=== PATIENT | female | born 1955 | race Caucasian/White ===

== ENCOUNTER 2022-02-27 07:39 | Outpatient (CLI) | payer OTHER, SELFPAY ==
--- NOTE | 2022-02-27 07:50 | ECHO_ITS ---
Patient Info Name: Elyse Greer Age: 67 years : 1955 Gender: Female Ht: 64 in Wt: 135 lbs BSA: 1.67 m2 HR: 64 bpm BP: 168 / 75 mmHg Technical Quality: Good Exam Date: 02/27/2022 8:17 AM Exam Location: [facility] Patient Status: Outpatient Admit Date: 02/27/2022 Staff Ordering Physician: Tim Fishman DO Rubber Belt Splicer: Ray Villa RDCS, RT Attending Provider: Tim Fishman DO Referring Physician: Kye GUEVARA; Exam Type: CA echo doppler color flow Study Info Indications R06.00 - Dyspnea, unspecified Complete two-dimensional, color flow and Doppler transthoracic echocardiogram is performed. Strain analysis performed. Summary 1. Complete two-dimensional, color flow and Doppler transthoracic echocardiogram is performed. 2. Left ventricular chamber dimension is normal. 3. Left ventricular systolic function is normal, estimated at 60-65%. 4. The left ventricular diastolic function is normal. 5. E/e' 5 is not elevated. 6. Global longitudinal strain is normal at -18.4%. 7. Left atrial chamber dimension is mildly enlarged. 8. There is trace mitral valve regurgitation. 9. There is trace tricuspid valve regurgitation. 10. There is trace pulmonic regurgitation. Left Ventricle Global longitudinal strain is normal at -18.4%. E/e' 5 is not elevated. Left ventricular chamber dimension is normal. Left ventricular systolic function is normal, estimated at 60-65%. The left ventricular diastolic function is normal. Right Ventricle Right ventricular systolic function is normal and with normal TAPSE 2.3 cm. Right ventricular chamber dimension is normal. Left Atria Left atrial chamber dimension is mildly enlarged. Right Atria Right atrial chamber dimension is normal. Aortic Valve The aortic valve is trileaflet. There is no aortic valve stenosis. There is no aortic valve regurgitation. Pulmonic Valve There is trace pulmonic regurgitation. Mitral Valve There is no mitral valve stenosis. There is trace mitral valve regurgitation. Tricuspid Valve There is trace tricuspid valve regurgitation. RVSP is not calculated due to an inadequate TR jet. Pericardium/Pleural There is no pericardial effusion. Inferior Vena Cava Normal inferior vena cava with >50% collapse upon inspiration consistent with normal right atrial pressure, 5 mmHg. Aorta The aortic root size at the sinus of Valsalva is normal. Left Ventricular Outflow Tract Name Value Normal LVOT 2D LVOT Diameter 2.0 cm LVOT Doppler LVOT Peak Gradient 5 mmHg LVOT Mean Gradient 2 mmHg LVOT VTI 22 cm LVOT VTI/AV VTI Ratio 0.8 LVOT Stroke Volume 67 ml LVOT CO 3.0 l/min LVOT CI 1.8 l/min/m2 Mitral Valve Name Value Normal MV
== END 2022-02-27 07:40 | disposition home or self-care (01) ==
LOC: ANHCARD 07:41
PROVIDERS: Visit Provider Internal Medicine Cardiovascular Disease
DX: R06.00 Dyspnea, unspecified (principal)
CPT/HCPCS: 93306

== ENCOUNTER 2022-11-21 00:50 | Day surgery (SDC) | payer OTHER, SELFPAY ==
[2022-11-20 13:01] VITALS: BMI 25.0
[2022-11-21] VITALS (8 sets, daily range): BP systolic 103–129; BP diastolic 48–88; PULSE 43–97; RESP 13–18; TEMP 36.3; O2SAT 98–100; BMI 25.0
--- NOTE | 2022-11-21 | ECHO_ITS ---
Patient Info Name: Elyse Greer Age: 67 years : 1955 Gender: Female Ht: 64 in Wt: 145 lbs BSA: 1.73 m2 HR: 102 bpm Exam Date: 11/21/2022 10:30 AM Exam Location: [facility] Patient Status: Outpatient Admit Date: 11/21/2022 Staff Ordering Physician: Tim Fishman DO Primary Education Professor: Ray Villa, VIV, RT Attending Provider: Tim Fishman DO Referring Physician: Kye GUEVARA; Exam Type: CA echo transesophageal Study Info Indications I48.1 - Persistent atrial fibrillation Complete two-dimensional, color flow and Doppler transesophageal study is performed. Procedure Details Risks/benefits/alternative to KEILA discuss with patient and she is agreeable to procedure. Patient was monitored electrocardiographically, vitals. She was in atrial flutter at 95 bpm, BP 120/70 mmHg, pulse ox>95%. Patient given cetacaine spray to posterior oropharynx x1. Patient sedated as per anesthesiology service. KEILA probe advanced to oropharynx and advanced intto esophagus without incident. Agitated saline given x 1. Multiple images obtained at various levels of esophagus. KEILA withdrawn and no blood noted on KEILA tip. Patient tolerated procedure well with no complications. Summary 1. Transesophageal echocardiogram. 2. Left ventricular chamber dimension is mildly enlarged. 3. Left ventricular systolic function is moderately reduced with an ejection fraction of 40-45% by visual estimation. 4. The left ventricular diastolic function is indeterminate as it was not assessed.. 5. Left atrial chamber dimension is mildly enlarged. 6. Agitated saline injection opacified right side cardiac chambers with shunt to left side cardiac chambers suggestive of patent foramen ovale. 7. There is mild mitral valve regurgitation. 8. There is mild tricuspid valve regurgitation. Left Ventricle Left ventricular systolic function is moderately reduced with an ejection fraction of 40-45% by visual estimation. The left ventricular diastolic function is indeterminate as it was not assessed.. Transesophageal echocardiogram. Left ventricular chamber dimension is mildly enlarged. Right Ventricle Right ventricular chamber dimension is normal. Right ventricular systolic function is normal. Left Atria Left atrial chamber dimension is mildly enlarged. Right Atria Right atrial chamber dimension is normal. Atrial Septum Agitated saline injection opacified right side cardiac chambers with shunt to left side cardiac chambers suggestive of patent foramen ovale. Suspected patent foramen ovale visualized by 2D and agitated saline imaging. Atrial Appendage There is no mass visualized in the left atrial appendage. Aortic Valve The aortic valve is trileaflet. There is no aortic valve stenosis. There is no aortic valve regurgitation. Pulmonic Valve There is no pulmonic regurgitation. Mitral Valve There is no mitral valve stenosis. There is mild mitral valve regurgitation. Tricuspid Valve RVSP is not measured. There is mild tricuspid valve regurgitation. Pericardium/Pleural There is no pericardial effusion. Inferior Vena Cava Inferior vena cava is not well visualized. Aorta The aortic root size at the sinus of Valsalva is normal. Report Signatures
--- NOTE | 2022-11-21 08:16 | ECG_ITS ---
Measurements Intervals [place] Rate: 95 P: 263 TN: 284 QRS: -65 QRSD: 133 T: 110 QT: 449 QTc: 565 Interpretive Statements ATRIAL FLUTTER RIGHT BUNDLE BRANCH BLOCK LEFT ANTERIOR FASCICULAR BLOCK ABNORMAL ECG NO PREVIOUS ECG AVAILABLE FOR COMPARISON Electronically Signed On 11-21-2022 9:17:05 CDT by Tim Fishman D.O.
[2022-11-21 08:45] LABS: Anion Gap 5 mmol/L (8-16); Blood Urea Nitrogen 15 mg/dL (7-17); Calcium 9.1 mg/dL (8.4-10.2); Carbon Dioxide 31 mmol/L (22-30); Chloride 104 mmol/L (98-107); Estimated CRCL calculation 51 ml/min; Estimated Glomerular Filt Rate > 60; Glucose 103 mg/dL (65-110); Magnesium 1.9 mg/dL (1.6-2.3); Potassium 4.1 mmol/L (3.4-5.0); Sodium 140 mmol/L (137-145)
--- NOTE | 2022-11-21 08:55 | SUR.PREOP ---
PT. IS NOTED TO BE ON WARFARIN. NOTIFIED DR. WHITE OF SUCH. ORDER TO OBTAIN PT/INR PRE PROCEDURE RECEIVED.
--- NOTE | 2022-11-21 09:15 | ECG_ITS ---
Measurements Intervals [place] Rate: 50 P: 70 NH: 161 QRS: -51 QRSD: 112 T: 33 QT: 464 QTc: 426 Interpretive Statements SINUS BRADYCARDIA LEFT AXIS DEVIATION INTRAVENTRICULAR CONDUCTION DELAY DELAYED PRECORDIAL R/S TRANSITION BORDERLINE T WAVE ABNORMALITY- ANT/INF LEADS BORDERLINE ECG COMPARED TO ECG 11/21/2022 08:21:54 SINUS RHYTHM NOW PRESENT Electronically Signed On 11-21-2022 11:16:37 CDT by Tim Fishman D.O.
[2022-11-21 09:33] LABS: INR 2.6; Prothrombin Time 27.4 Seconds (11.1-14.7)
--- NOTE | 2022-11-21 10:19 | WPDANESEPPF ---
Anes - Initial Pre Proc Eval Procedure: Operation Date: 11/21/22 09:00 Proposed Procedures p Trans Esophageal Echo - Tmi Fishman DO s Direct Current Cardioversion - Tim Fishman DO Date/Time: 11/21/22 10:19 Surgeon: Tim Fishman DO Pre Op Diagnosis: A-Fib Patient Data Age: 67 Gender: F Height: 1.63 m Weight: 66 kg Last Vital Signs Temp 36.3 C L 11/21/22 08:34 Pulse 97 11/21/22 08:34 Resp 18 11/21/22 08:34 BP 129/88 11/21/22 08:34 Pulse Ox 98 11/21/22 08:34 O2 Del Method Room Air 11/21/22 08:34 Allergies Allergy/AdvReac Type Severity Reaction Status Date / Time No Known Allergies Allergy Verified 11/21/22 08:24 Home Medications Medication Instructions Recorded Confirmed Type acetaminophen 325 mg tablet (Pain 325 mg PO Q6H PRN Pain 01/09/22 11/20/22 History Relief (acetaminophen)) bupropion HCl 150 mg tablet,12 hr See Rx Instructions .Route .COMPLEX 01/09/22 11/21/22 History sustained-release cholecalciferol (vitamin D3) 125 125 mcg PO DAILY 01/09/22 11/21/22 History mcg (5,000 unit) capsule ferrous sulfate 325 mg (65 mg 325 mg PO BID 01/09/22 11/21/22 History iron) tablet melatonin 3 mg capsule 3 mg PO QHS PRN Insomnia 01/09/22 11/20/22 History olanzapine 15 mg tablet 15 mg PO DAILY 01/09/22 11/21/22 History pravastatin 10 mg tablet 10 mg PO DAILY 01/09/22 11/20/22 History vitamin B complex (B 1 tablet PO DAILY 01/09/22 11/21/22 History Complex-Vitamin B12 tablet) calcium carbonate 500 mg calcium 500 mg PO BID 01/24/22 11/21/22 History (1,250 mg) tablet (Oyster Shell Calcium) metformin 500 mg tablet 500 mg PO DAILY 01/24/22 11/20/22 History sertraline 100 mg tablet (Zoloft) 100 mg PO DAILY 01/24/22 11/21/22 History sertraline 50 mg tablet 50 mg PO DAILY 01/24/22 11/21/22 History warfarin 6 mg tablet 7.5 mg PO DAILY 04/25/22 11/20/22 History metoprolol tartrate 25 mg tablet 25 mg PO BID 07/25/22 11/21/22 History fluticasone propionate 50 2 spray intranasal DAILY 08/13/22 11/21/22 History mcg/actuation nasal spray,suspension flecainide 50 mg tablet See Rx Instructions .Route .COMPLEX 11/20/22 11/21/22 History Laboratory Tests 11/21/22 11/21/22 08:21 09:03 PT 27.4 Seconds H Seconds (11.1-14.7) INR 2.6 Sodium 140 mmol/L mmol/L (137-145) Potassium 4.1 mmol/L mmol/L (3.4-5.0) Chloride 104 mmol/L mmol/L (98-107) Carbon Dioxide 31 mmol/L H mmol/L (22-30) Anion Gap 5 mmol/L L mmol/L (8-16) BUN 15 mg/dL mg/dL (7-17) Creatinine 0.80 mg/dL mg/dL (0.7-1.0) Estim Creat Clear Calc 51 ml/min ml/min Estimated GFR > 60 (59 - ) Glucose 103 mg/dL mg/dL (65-110) Calcium 9.1 mg/dL mg/dL (8.4-10.2) Magnesium 1.9 mg/dL mg/dL (1.6-2.3) Patient hx anesthesia problems: none Family hx anesthesia problems: none Results Review: All pre-operative results and documents have been reviewed as part of the pre-operative evaluation. [facility] Past Medical History Medical History Bipolar disorder Chronic a-fib COVID-19 Diabetes type 2, controlled HDL deficiency HTN (hypertension) Insomnia Moderate depressive disorder Schizophrenia Social History Social History Smoking status: Current every day smoker Alcohol intake: never Substance use: never Substance use type: does not use Lack of Transportation: No Lack of Food: Never True Current Housing: I Have Housing Concerned About Future Housing: No Difficulty Paying Gas/Electric Bills: Decline to Answer Difficulty Paying for Meds: No Currently Unemployed: No Education: Bachelor's Degree Difficulty w/ Childcare or Family Care: No Living arrangements: assisted living Spiritual care concerns: No Anes - Eval Final PreProcedure Day of Procedure 11/21/
--- NOTE | 2022-11-25 08:10 | WPDCARDVER ---
Cardioversion Cardioversion Date of procedure: 11/21/22 Procedure: Direct current cardioversion Pre-op diagnosis: Symptomatic atrial flutter Indications: Symptomatic atrial flutter Description of procedure: Risks/benefits/alternative to DC cardioversion discuss with patient and she gave informed consent. Patient monitored electrocardiographically, and vitals and pulse ox. Her HR was 95 bpm in atrial flutter, BP 120/70 mmHg and pulse ox >95%. Patient had defibrillator pads placed in anterior and posterior chest. Had anesthetics as per anesthesiology service. KEILA performed which showed no left atrial or left atrial thrombus. Patient was successfully cardioverted with 100 J biphasic synchronized energy x1. Her HR was immediately 35 bpm in sinus rhythm with BP 85/50 mmHg. Atropine 0.5 mg IV x1 given. Her HR gradually went to 50 bpm and BP 95/60 mmHg. Patient tolerated well and no immediate complications noted. Sedation: As per anesthesia Conclusion: 1. Successful DC cardioversion from atrial flutter to sinus rhythm. 2. Stop Flecainide and Metoprolol given bradycardia. [facility] Billing for Cardioversion: Cardioversion
== END 2022-11-21 12:19 | disposition home or self-care (01) ==
PROVIDERS: Visit Provider Internal Medicine Cardiovascular Disease
PROC: (CPT 93312; principal; 2022-11-21 09:00)
PROC: 5A2204Z Restoration of Cardiac Rhythm, Single (ICD-10-PCS; 2022-11-21 09:00)
DX: I48.92 Unspecified atrial flutter (principal); I34.0 Nonrheumatic mitral (valve) insufficiency; I36.1 Nonrheumatic tricuspid (valve) insufficiency; I10 Essential (primary) hypertension; E11.9 Type 2 diabetes mellitus without complications; F31.9 Bipolar disorder, unspecified; F20.9 Schizophrenia, unspecified; Z79.84 Long term (current) use of oral hypoglycemic drugs; Z79.01 Long term (current) use of anticoagulants
CPT/HCPCS: 36415; 80048; 83735; 85610; 92960; 93312; 93320; 93325; J0461; J2250; J2704; J7040

== ENCOUNTER 2023-11-10 13:50 | Emergency (ER) | payer OTHER, SELFPAY ==
--- NOTE | ~2023-11-10 | XR_ITS ---
EXAM: XR shoulder LT min 2V DATE: 11/10/2023 17:43 HISTORY: fall WITH LEFT SHOULDER PAIN . COMPARISON: None available. FINDINGS: Decreased mineralization. No fracture or dislocation. No lytic or blastic lesion. Joint sp aces are maintained. No erosion or periosteal change. Soft tissues within normal limits. IMPRESSION: No acute osseous finding in the left shoulder. Reviewed, dictated and finalized at location K.
--- NOTE | ~2023-11-10 | CT_ITS ---
EXAMINATION: CT brain wo con DATE: 11/10/2023 17:21 INDICATION: Fall. TECHNIQUE: Computed tomography (CT) of the head was performed without intravenous contrast. The mA wa s adjusted according to patient size. Iterative reconstruction technique was employed. Exam dose: 60 5.33 mGy-cm total exam DLP. COMPARISON: None FINDINGS: Right vertebral artery and bilateral carotid siphon internal carotid artery calcifications. There is nonspecific diminished attenuation of the cerebral white matter, likely due to chronic small vessel ischemic changes. No intracranial mass lesion or hemorrhage or cerebrovascular accident, midline shift or mass effect i s detected. No subdural or epidural hematoma. No fracture or bone destruction of the cranial vault. The mastoid air cells and paranasal sinuses are normally developed and aerated. IMPRESSION: Cerebral atherosclerosis and chronic small vessel ischemic changes of the cerebral white matter No skull fracture or acute intracranial finding Reviewed, dictated and finalized at Location A. Reviewed, dictated and finalized at location B.
--- NOTE | 2023-11-10 16:54 | ED.FALL ---
HPI - Fall General Chief Complaint: Fall Stated Complaint: glf Time Seen by Provider: 11/10/23 15:09 History of Present Illness HPI Narrative: 68-year-old female presenting after a fall. Patient resides at assisted living. States that she got a new walker and today she tripped on it. Fell forward striking her head and her left shoulder. Denies loss of consciousness. States that she did have a headache which is improved. States that she continues to have pain in her left shoulder. Denies neck or back pain. No numbness or weakness. No further complaints. Related Data Home Medications Medication Instructions Recorded Confirmed acetaminophen 325 mg tablet (Pain 325 mg PO Q6H PRN Pain 01/09/22 01/01/23 Relief (acetaminophen)) bupropion HCl 150 mg tablet,12 hr See Rx Instructions .Route .COMPLEX 01/09/22 01/01/23 sustained-release cholecalciferol (vitamin D3) 125 125 mcg PO DAILY 01/09/22 01/01/23 mcg (5,000 unit) capsule ferrous sulfate 325 mg (65 mg 325 mg PO BID 01/09/22 01/01/23 iron) tablet melatonin 3 mg capsule 3 mg PO QHS PRN Insomnia 01/09/22 01/01/23 olanzapine 15 mg tablet 15 mg PO DAILY 01/09/22 01/01/23 pravastatin 10 mg tablet 10 mg PO DAILY 01/09/22 01/01/23 vitamin B complex (B 1 tablet PO DAILY 01/09/22 01/01/23 Complex-Vitamin B12 tablet) calcium carbonate 500 mg calcium 500 mg PO BID 01/24/22 01/01/23 (1,250 mg) tablet (Oyster Shell Calcium) metformin 500 mg tablet 500 mg PO DAILY 01/24/22 01/01/23 sertraline 100 mg tablet (Zoloft) 100 mg PO DAILY 01/24/22 01/01/23 sertraline 50 mg tablet 50 mg PO DAILY 01/24/22 01/01/23 warfarin 6 mg tablet 7.5 mg PO DAILY 04/25/22 01/01/23 fluticasone propionate 50 2 spray intranasal DAILY 08/13/22 01/01/23 mcg/actuation nasal spray,suspension metoprolol tartrate 75 mg tablet 75 mg PO BID 01/01/23 01/01/23 Allergies Allergy/AdvReac Type Severity Reaction Status Date / Time No Known Allergies Allergy Verified 01/01/23 08:18 Review of Systems Review of Systems: All systems reviewed & are unremarkable except as noted in HPI and below PMFSH Past Medical History Medical History Bipolar disorder Chronic a-fib COVID-19 Diabetes type 2, controlled HDL deficiency HTN (hypertension) Insomnia Moderate depressive disorder Schizophrenia Social History Social History Smoking status: Current every day smoker Alcohol intake: never Substance use: never Substance use type: does not use Lack of Transportation: No Lack of Food: Never True Current Housing: I Have Housing Concerned About Future Housing: No Difficulty Paying Gas/Electric Bills: Decline to Answer Difficulty Paying for Meds: No Currently Unemployed: No Education: Bachelor's Degree Difficulty w/ Childcare or Family Care: No Living arrangements: assisted living Spiritual care concerns: No Exam Narrative: GENERAL: Nontoxic, no acute distress, pleasant and cooperative HEAD: Normocephalic, atraumatic. EYES: PERRLA and EOMI. ENT: Poor dentition NECK: Supple. CHEST: No respiratory distress. ABDOMEN: Soft, nontender, nondistended EXTREMITIES: Normal range of motion. tenderness posterior L shoulder; ROM intact, no bruising or deformities SKIN: Warm, dry, no rash. NEURO: Alert and oriented x3. PSYCH: Normal mood and affect. Course Vital Signs Vital signs: Vital Signs Temperature 97.4 F L 11/10/23 18:07 Pulse Rate 82 11/10/23 18:07 Respiratory Rate 16 11/10/23 18:07 Blood Pressure 120/75 11/10/23 18:07 Pulse Oximetry 100 11/10/23 18:07 Temperature 97.4 F L 11/10/23 18:07 Pulse Rate 82 11/10/23 18:07 Respiratory Rate 16 11/10/23 18:07 Blood Pressure 120/75 11/10/23 18:07 Pulse Oximetry 100 11/10/23 18:07 MDM - Fall MDM Narrative Medical decision making narrative: 68-year-old fem
[2023-11-10 18:07] VITALS: BP 120/75; PULSE 82; RESP 16; TEMP 36.3; O2SAT 100
== END 2023-11-10 19:46 ==
PROVIDERS: Emergency Provider Emergency Medicine
DX: S49.92XA Unspecified injury of left shoulder and upper arm, initial encounter (principal); R51.9 Headache, unspecified; I48.20 Chronic atrial fibrillation, unspecified; E11.9 Type 2 diabetes mellitus without complications; E78.5 Hyperlipidemia, unspecified; F20.9 Schizophrenia, unspecified; F31.9 Bipolar disorder, unspecified; F17.200 Nicotine dependence, unspecified, uncomplicated; Z86.16 Personal history of COVID-19; Z79.84 Long term (current) use of oral hypoglycemic drugs; Z79.01 Long term (current) use of anticoagulants; W01.0XXA Fall on same level from slipping, tripping and stumbling without subsequent striking against object, initial encounter
CPT/HCPCS: 70450; 73030; 99284

== ENCOUNTER 2024-05-15 19:44 | Emergency (ER) | payer OTHER, SELFPAY ==
[2024-05-15] VITALS (11 sets, daily range): BP systolic 128–149; BP diastolic 64–115; PULSE 88–109; RESP 11–20; TEMP 36.8; O2SAT 97–100
--- NOTE | ~2024-05-15 | XR_ITS ---
XR shoulder LT min 2V DATE: 05/15/2024 21:06 INDICATION: Left shoulder pain following fall TECHNIQUE: 3 views COMPARISON: 11/10/2023 left shoulder FINDINGS: Normal alignment at the left acromioclavicular and glenohumeral joints. No fracture, disloc ation, periosteal reaction or bone destruction or abnormal soft tissue calcification of the left shou lder. Aortic arch calcification. IMPRESSION: No fracture or dislocation of the left shoulder Reviewed, dictated and finalized at location A.
--- NOTE | ~2024-05-15 | XR_ITS ---
XR elbow LT 2V DATE: 05/15/2024 21:06 INDICATION: Fall. Left elbow injury, pain TECHNIQUE: AP and lateral views COMPARISON: None FINDINGS: No fracture or dislocation or joint effusion. No periosteal reaction or bone destruction. IMPRESSION: No fracture or dislocation or joint effusion Reviewed, dictated and finalized at location A.
--- NOTE | ~2024-05-15 | CT_ITS ---
EXAMINATION: CT cervical spine wo con DATE: 05/15/2024 21:06 INDICATION: Head trauma TECHNIQUE: Computed tomography (CT) of the cervical spine was performed without intravenous contrast. Automated exposure control and iterative reconstruction technique were employed. Exam dose: 228.19 mGy-cm total exam DLP. COMPARISON: None FINDINGS: Normal alignment at the atlantoaxial joints. There is mild cysts levoscoliosis of the cervical and upper thoracic spine. C1 and C2 are normally aligned and the odontoid process is intact. No fracture or dislocation or locked facet or prevertebral soft tissue swelling. There is moderate degenerative disc disease and minimal retrolisthesis at C4-5. There is moderate degenerative disease at C5-6. Is prominent anterior spurring of the cervical spine. There is degenerative change at the apophyseal joints. There is uncovertebral joint spurring primaril y at C4-5 and C5-6. No cervical mass lesion or adenopathy. The lung apices are clear. IMPRESSION: Moderate cervical spondylosis; no fracture or dislocation or locked facet Reviewed, dictated and finalized at Location A. Reviewed, dictated and finalized at location A.
--- NOTE | ~2024-05-15 | CT_ITS ---
EXAMINATION: CT brain wo con DATE: 05/15/2024 21:06 INDICATION: Head injury TECHNIQUE: Computed tomography (CT) of the head was performed without intravenous contrast. The mA wa s adjusted according to patient size. Iterative reconstruction technique was employed. Exam dose: 68 1.00 mGy-cm total exam DLP. COMPARISON: 11/10/2023 CT head FINDINGS: Cerebral atherosclerosis. There is nonspecific diminished attenuation of the cerebral white matter, likely due to chronic small vessel ischemic changes. No intracranial mass lesion or hemorrhage or cerebrovascular accident, midline shift or mass effect i s detected. No subdural or epidural hematoma. The orbital contents are unremarkable. The mastoid air cells and paranasal sinuses are well-developed and aerated with exception of 4.7 mm o pacity of posterior right ethmoid area. No skull fracture. IMPRESSION: No skull fracture or acute intracranial finding Reviewed, dictated and finalized at [facility]. Reviewed, dictated and finalized at [facility].
--- NOTE | 2024-05-15 21:50 | ED.GENADULT ---
HPI - General Adult General Chief complaint: Fall Stated complaint: GLF BACKWARDS, STRUCK HEAD Time Seen by Provider: 05/15/24 20:14 History of Present Illness HPI narrative: Patient 69-year-old female who presents emergency department with chief complaint of fall. The patient reports she was getting back in her bed slipped and fell struck her head had no loss of conscious reports that she had pain in her left upper extremity and shoulder and left elbow patient does report she has a small abrasion on her upper extremity. The patient is on a blood thinner Related Data Home Medications Medication Instructions Recorded Confirmed acetaminophen 325 mg tablet (Pain 325 mg PO Q6H PRN Pain 01/09/22 01/01/23 Relief (acetaminophen)) bupropion HCl 150 mg tablet,12 hr See Rx Instructions .Route .COMPLEX 01/09/22 01/01/23 sustained-release cholecalciferol (vitamin D3) 125 125 mcg PO DAILY 01/09/22 01/01/23 mcg (5,000 unit) capsule ferrous sulfate 325 mg (65 mg 325 mg PO BID 01/09/22 01/01/23 iron) tablet melatonin 3 mg capsule 3 mg PO QHS PRN Insomnia 01/09/22 01/01/23 olanzapine 15 mg tablet 15 mg PO DAILY 01/09/22 01/01/23 pravastatin 10 mg tablet 10 mg PO DAILY 01/09/22 01/01/23 vitamin B complex (B 1 tablet PO DAILY 01/09/22 01/01/23 Complex-Vitamin B12 tablet) calcium carbonate (Oyster Shell 500 mg PO BID 01/24/22 01/01/23 Calcium) metformin 500 mg tablet 500 mg PO DAILY 01/24/22 01/01/23 sertraline 100 mg tablet (Zoloft) 100 mg PO DAILY 01/24/22 01/01/23 sertraline 50 mg tablet 50 mg PO DAILY 01/24/22 01/01/23 warfarin 6 mg tablet 7.5 mg PO DAILY 04/25/22 01/01/23 fluticasone propionate 50 2 spray intranasal DAILY 08/13/22 01/01/23 mcg/actuation nasal spray,suspension metoprolol tartrate 75 mg tablet 75 mg PO BID 01/01/23 01/01/23 Allergies Allergy/AdvReac Type Severity Reaction Status Date / Time No Known Allergies Allergy Verified 05/10/23 08:18 Review of Systems Review of Systems: A 10 system review of systems was completed on the patient and is negative except for what is stated in the HPI. Nursing and ancillary documentation was reviewed. [facility] Past Medical History Medical History Bipolar disorder Chronic a-fib COVID-19 Diabetes type 2, controlled HDL deficiency HTN (hypertension) Insomnia Moderate depressive disorder Schizophrenia Social History Social History Smoking status: Current every day smoker Alcohol intake: never Substance use: never Substance use type: does not use Lack of Transportation: No Lack of Food: Never True Current Housing: I Have Housing Concerned About Future Housing: No Difficulty Paying Gas/Electric Bills: Decline to Answer Difficulty Paying for Meds: No Currently Unemployed: No Education: Bachelor's Degree Difficulty w/ Childcare or Family Care: No Living arrangements: assisted living Spiritual care concerns: No Exam Narrative: GENERAL: Well-appearing, well-nourished, and in no acute distress. HEAD: Normocephalic, atraumatic. EYES: PERRLA and EOMI. ENT: Nares clear, no rhinorrhea or epistaxis. Mucous membranes moist. NECK: Supple. CHEST: Clear to auscultation. No respiratory distress. HEART: Regular rate and rhythm. No murmur heard. Normal peripheral pulses. ABDOMEN: Soft, nontender, nondistended, normal active bowel sounds. EXTREMITIES: Normal range of motion. No edema. There is an abrasion present to the left upper extremity SKIN: Warm, dry, no rash. NEURO: No focal deficits. Alert and oriented x3. PSYCH: Normal mood and affect. Course Vital Signs Vital signs: Vital Signs Temperature 36.8 C 05/15/24 19:47 Pulse Rate 99 05/15/24 19:47 Respiratory Rate 13 05/15/24 19:47 Blood Pressure 129/64 05/15/24 19:47 Pulse Oximetry 99 05/15/24 19:47 Oxygen Delivery Casis
--- NOTE | 2024-05-15 22:06 | PC.NURSE ---
[id number]-Attempted to notify [facility] about pt's discharge, no answer.
--- NOTE | 2024-05-15 22:08 | PC.NURSE ---
Attempted a second time to notify shelter of pt's discharge. no answer
--- NOTE | 2024-05-15 22:48 | PC.NURSE ---
[facility] notified for transfer, [id number]
[2024-05-16 00:44] VITALS: BP 120/103; PULSE 100; RESP 18; O2SAT 99
[2024-05-16 03:20] LABS: Glucose Point of Care 128 mg/dl (65-105)
== END 2024-05-16 03:37 ==
PROVIDERS: Emergency Provider Emergency Medicine
DX: S09.90XA Unspecified injury of head, initial encounter (principal); S40.812A Abrasion of left upper arm, initial encounter; S49.92XA Unspecified injury of left shoulder and upper arm, initial encounter; I48.20 Chronic atrial fibrillation, unspecified; I10 Essential (primary) hypertension; E11.9 Type 2 diabetes mellitus without complications; F31.9 Bipolar disorder, unspecified; F20.9 Schizophrenia, unspecified; F17.200 Nicotine dependence, unspecified, uncomplicated; Z86.16 Personal history of COVID-19; Z79.84 Long term (current) use of oral hypoglycemic drugs; Z79.899 Other long term (current) drug therapy; Z79.01 Long term (current) use of anticoagulants; M47.812 Spondylosis without myelopathy or radiculopathy, cervical region; W06.XXXA Fall from bed, initial encounter
CPT/HCPCS: 70450; 72125; 73030; 73070; 82948; 99284

== ENCOUNTER 2024-05-27 10:51 | Emergency (ER) | payer OTHER, SELFPAY ==
[2024-05-27] VITALS (15 sets, daily range): BP systolic 115–136; BP diastolic 79–96; PULSE 99–111; RESP 13–19; TEMP 36.6; O2SAT 98–100
--- NOTE | ~2024-05-27 | CT_ITS ---
EXAMINATION: CT brain wo con DATE: 05/27/2024 12:19 INDICATION: Anticoagulated patient post fall TECHNIQUE: Computed tomography (CT) of the head was performed without intravenous contrast. Sagittal and coronal reconstructions were performed. The mA was adjusted according to patient size. Iterative reconstruction technique was employed. The dose-length product was 605.33 mGy-cm. COMPARISON: head CT dated 05/15/2024 FINDINGS: No fracture. No acute intracranial hemorrhage, acute infarction or abnormal extra axial fluid collect ion. There is mild scattered white matter hypoattenuation consistent with chronic small vessel ische regan disease. Ventricles are normal and symmetric. No mass/mass effect. Small mucous retention cyst in the posterior most right ethmoid air cell. The orbits and mastoid air cells are normal. IMPRESSION: 1. No fracture or acute intracranial process. 2. Mild scattered white matter hypoattenuation consistent with chronic small vessel ischemic disease. Reviewed, dictated and finalized at location [facility]. IMPRESSION: 1. No fracture or acute intracranial process. 2. Mild scattered white matter hypoattenuation consistent with chronic small ve ssel ischemic disease.
--- NOTE | ~2024-05-27 | CT_ITS ---
CT cervical spine wo con Ordering provider: Chano Smyth MD History: . Fall on thinners . Comparison: None. Technique: CT of the cervical spine was performed without contrast. Sagittal and coronal reformatted images were also obtained and reviewed. Automated exposure control and iterative reconstruction destin hnique were employed. The dose-length product was 208.67 mGy-cm. FINDINGS: VERTEBRAE: No subluxation or acute fracture. The occipital condyles are intact. Degenerative changes of the spine. DISC SPACES: Normal. Bilateral facet joint disease at the level of C4-C5 and C5-C6. Bilateral narrowi ng of the foramina at the level of C4-C5. Narrowing of the right foramen at the level of C5-C6 PARASPINOUS SOFT TISSUES: Bilateral carotid calcifications. IMPRESSION: No acute osseous abnormality cervical spine. Reviewed, dictated and finalized at location [facility].
--- NOTE | ~2024-05-27 | XR_ITS ---
Clinical Indication: Status post fall PA and lateral views of the chest: Comparison: None Findings: The lungs are clear, without evidence of focal consolidation or pleural effusion. Cardiome diastinal silhouette is prominent. Bones and soft tissues are unremarkable. Impression: Clear lungs. Reviewed, dictated and finalized at location . Impression: Clear lungs.
[2024-05-27] MEDS: SODIUM CHLORIDE 0.9% IV 1,000 ML 999 ML IV CONT (11:59)
--- NOTE | 2024-05-27 12:15 | PC.NURSE ---
Pt attempted to provide urine sample but was unable to
[2024-05-27 13:02] LABS: Alanine Aminotransferase 48 U/L (6-35); Albumin Level 3.9 g/dL (3.5-5.1); Alkaline Phosphatase 79 U/L (38-126); Anion Gap 4 mmol/L (4-12); Aspartate Amino Transferase 60 U/L (14-36); Bilirubin,Total 0.5 mg/dL (0.2-1.3); Blood Urea Nitrogen 16 mg/dL (7-17); Calcium 8.8 mg/dL (8.4-10.2); Carbon Dioxide 30 mmol/L (22-30); Chloride 104 mmol/L (98-107); Estimated CRCL calculation 44 ml/min; Estimated Glomerular Filt Rate > 60; Glucose 97 mg/dL (65-110); Potassium 4.2 mmol/L (3.4-5.0); Sodium 138 mmol/L (137-145)
[2024-05-27 13:05] LABS: Basophils Percent Auto 0.5 % (0.2-1.2); Eosinophils Absolute Auto 0.1 K/mm3 (0-0.3); Eosinophils Percent Auto 2.4 % (0-4.4); Hematocrit 39.6 % (37.0-47.0); Immature Granulocyte Absolute 0.01 K/mm3 (0.00-0.031); Immature Granulocyte Percent A 0.2 % (0-0.5); Lymphocytes Absolute Auto 0.73 K/mm3 (0.9-3.2); Lymphocytes Percent Auto 17.6 % (18.3-44.2); Mean Corpuscular HGB Conc 32.8 g/dl (32-36); Mean Corpuscular Volume 94.3 fl (80-100); Mean Platelet Volume 11.1 fl (7.4-10.4); Monocytes Absolute Auto 0.3 K/mm3 (0.1-0.6); Monocytes Percent Auto 8.2 % (2.6-8.5); Neutrophils Percent Auto 71.1 % (45.5-73.1); Platelet Count Result 166 k/mm3 (150-375); Red Cell Distribution Width 13.6 % (11.5-14.5); White Blood Count 4.2 K/mm3 (4.5-10.0)
--- NOTE | 2024-05-27 14:16 | ED.GENADULT ---
HPI - General Adult General Chief complaint: Fall Stated complaint: fall Time Seen by Provider: 05/27/24 11:34 History of Present Illness HPI narrative: This is a 69-year-[facility] presenting after a ground level fall. Patient fell backwards striking her head. She is on Xarelto. Patient denies loss of consciousness. She says was a mechanical fall. She has no other physical complaints this time. Patient says she has this for falls due to dehydration and low blood pressures Related Data Home Medications Medication Instructions Recorded Confirmed acetaminophen 325 mg tablet (Pain 325 mg PO Q6H PRN Pain 01/09/22 01/01/23 Relief (acetaminophen)) bupropion HCl 150 mg tablet,12 hr See Rx Instructions .Route .COMPLEX 01/09/22 01/01/23 sustained-release cholecalciferol (vitamin D3) 125 125 mcg PO DAILY 01/09/22 01/01/23 mcg (5,000 unit) capsule ferrous sulfate 325 mg (65 mg 325 mg PO BID 01/09/22 01/01/23 iron) tablet melatonin 3 mg capsule 3 mg PO QHS PRN Insomnia 01/09/22 01/01/23 olanzapine 15 mg tablet 15 mg PO DAILY 01/09/22 01/01/23 pravastatin 10 mg tablet 10 mg PO DAILY 01/09/22 01/01/23 vitamin B complex (B 1 tablet PO DAILY 01/09/22 01/01/23 Complex-Vitamin B12 tablet) calcium carbonate (Oyster Shell 500 mg PO BID 01/24/22 01/01/23 Calcium) metformin 500 mg tablet 500 mg PO DAILY 01/24/22 01/01/23 sertraline 100 mg tablet (Zoloft) 100 mg PO DAILY 01/24/22 01/01/23 sertraline 50 mg tablet 50 mg PO DAILY 01/24/22 01/01/23 warfarin 6 mg tablet 7.5 mg PO DAILY 04/25/22 01/01/23 fluticasone propionate 50 2 spray intranasal DAILY 08/13/22 01/01/23 mcg/actuation nasal spray,suspension metoprolol tartrate 75 mg tablet 75 mg PO BID 01/01/23 01/01/23 Allergies Allergy/AdvReac Type Severity Reaction Status Date / Time No Known Allergies Allergy Verified 05/27/24 11:39 [facility] Past Medical History Medical History Bipolar disorder Chronic a-fib COVID-19 Diabetes type 2, controlled HDL deficiency HTN (hypertension) Insomnia Moderate depressive disorder Schizophrenia Social History Social History Smoking status: Current every day smoker Alcohol intake: never Substance use: never Substance use type: does not use Lack of Transportation: No Lack of Food: Never True Current Housing: I Have Housing Concerned About Future Housing: No Difficulty Paying Gas/Electric Bills: Decline to Answer Difficulty Paying for Meds: No Currently Unemployed: No Education: Bachelor's Degree Difficulty w/ Childcare or Family Care: No Living arrangements: assisted living Spiritual care concerns: No Exam Narrative: APPEARANCE: No apparent distress. Head: atraumatic. EYES: EOMI, NOSE: Atraumatic NECK: Trachea midline RESPIRATORY: No increased rate of breathing clear to auscultation CARDIOVASCULAR: Irregular ABDOMINAL: Non-distended soft nontender MUSCULOSKELETAl: No obvious deformities NEURO: Alert. Cranial nerves 2-12 grossly intact. Sensation light touch, motor function cerebellar function intact for 4 extremities. Gait exam was normal. SKIN:: Warm, dry. Normal color PSYCHIATRIC: Normal affect Course Vital Signs Vital signs: Vital Signs Temperature 97.8 F 05/27/24 10:55 Pulse Rate 111 H 05/27/24 10:55 Respiratory Rate 17 05/27/24 10:55 Blood Pressure 131/79 05/27/24 10:55 Pulse Oximetry 100 05/27/24 10:55 Oxygen Delivery Room Air 05/27/24 10:55 Temperature 97.8 F 05/27/24 10:55 Pulse Rate 99 05/27/24 13:18 Respiratory Rate 19 05/27/24 13:18 Blood Pressure 133/96 H 05/27/24 11:46 Pulse Oximetry 100 05/27/24 13:18 Oxygen Delivery Room Air 05/27/24 10:55 Medical Decision Making [facility] Narrative Medical decision making narrative: -Course: This is a 69-year-old female presenting after ground l
--- NOTE | 2024-05-27 14:21 | ECG_ITS ---
Test Date: 2024-05-27 14:38:00 Measurements Intervals [place] Rate: 105 P: 0 AL: 0 QRS: -48 QRSD: 106 T: 75 QT: 327 QTc: 433 Interpretive Statements ATRIAL FLUTTER/TACHYCARDIA WITH RAPID VENTRICULAR RESPONSE MARKED LEFT AXIS DEVIATION [QRS AXIS < -30] INCOMPLETE RIGHT BUNDLE BRANCH BLOCK [90+ ms QRS DURATION, TERMINAL R IN V1/V2, 40+ ms S IN I/aVL/V4/V5/V6] NONSPECIFIC T-WAVE ABNORMALITY No previous ECG available for comparison Electronically Signed On 05-27-2024 14:59:08 CDT by Kiko Ayala M.D.
[2024-05-27 14:29] LABS: Add Urine Microscopic? NO; Appearance Urine Clear (Clear); Bilirubin Urine Negative (Negative); Blood Urine Negative (Negative); Color Urine Yellow (Yellow); Glucose Urine UA Negative (Negative); Ketones Urine Negative (Negative); Leukocyte Esterase Ur Negative LEU/UL (Negative); Nitrate Urine Negative (Negative); Protein Urine Negative (Negative); Specific Grav Ur 1.012 (1.001-1.035); Urobilinogen Urine 0.2 mg/dL (<2.0)
== END 2024-05-27 15:40 ==
PROVIDERS: Emergency Provider Emergency Medicine
DX: S09.90XA Unspecified injury of head, initial encounter (principal); F03.90 Unspecified dementia, unspecified severity, without behavioral disturbance, psychotic disturbance, mood disturbance, and anxiety; I48.20 Chronic atrial fibrillation, unspecified; I10 Essential (primary) hypertension; E11.9 Type 2 diabetes mellitus without complications; F17.200 Nicotine dependence, unspecified, uncomplicated; F31.9 Bipolar disorder, unspecified; F20.9 Schizophrenia, unspecified; Z86.16 Personal history of COVID-19; Z79.01 Long term (current) use of anticoagulants; Z79.84 Long term (current) use of oral hypoglycemic drugs; Z79.899 Other long term (current) drug therapy; W18.39XA Other fall on same level, initial encounter; I48.92 Unspecified atrial flutter; R00.0 Tachycardia, unspecified; I45.10 Unspecified right bundle-branch block
CPT/HCPCS: 36415; 70450; 71046; 72125; 80053; 81003; 85025; 93005; 96360; 99284; J7030

== ENCOUNTER 2025-03-02 08:28 | Inpatient (IN) | payer OTHER, SELFPAY ==
[2025-03-02] VITALS (12 sets, daily range): BP systolic 119–138; BP diastolic 39–105; PULSE 39–84; RESP 14–20; TEMP 36.4–36.8; O2SAT 95–100; BMI 25.7
--- NOTE | ~2025-03-02 | XR_ITS ---
Right Humerus Technique: AP and lateral views were obtained. Clinical History: Pain Findings: There is a comminuted fracture of the proximal humerus predominantly involving the surgical neck but also extending to the greater tuberosity. There is one fracture fragment significant displa larry medially.. Visualized joint spaces are grossly preserved. Soft tissues are unremarkable. Impression: Comminuted fracture the proximal humerus, predominantly involving the greater tuberosity and surgical neck, as detailed above. Reviewed, dictated and finalized at location M. Impression: Comminuted fracture the proximal humerus, predominantly involving the greater t uberosity and surgical neck, as detailed above.
--- NOTE | ~2025-03-02 | CT_ITS ---
EXAM: CT brain wo con - 03/02/2025 10:40 CDT History: 70 years old Female with Fall COMPARISON: 05/27/2024 PROCEDURE: CT of the head without contrast. Axial, sagittal and coronal reformatted planes were kelvin luated. Automatic exposure control was used for this study. FINDINGS: BRAIN PARENCHYMA: No acute hemorrhage. No mass effect or herniation. Negron-white matter differentiatio n is maintained. Mild chronic volume loss. Scattered hypodensities in subcortical and periventricular white matter, likely representing chronic microvascular ischemic changes in this age group. Atherosc lerotic calcification of the intracranial vessels is noted. VENTRICLES/ EXTRA-AXIAL SPACES: No hydrocephalus or extra-axial fluid collection. EXTRACRANIAL STRUCTURES: No calvarial fracture. IMPRESSION: No evidence for acute intracranial hemorrhage or calvarial fracture. Reviewed, dictated and finalized at location A.
--- NOTE | ~2025-03-02 | XR_ITS ---
Right Shoulder Technique: AP and scapular Y views were obtained. Clinical History: Status post fall Findings: There is a comminuted fracture the proximal humerus, predominantly involving the surgical n miladis and greater tuberosity of the proximal humerus. There is a fracture fragment which is significant ly displaced medially as well. Joint spaces are intact. Soft tissues are unremarkable. Impression: Comminuted fracture of the proximal humerus, as detailed above. Reviewed, dictated and finalized at location M. Impression: Comminuted fracture of the proximal humerus, as detailed above.
--- OUTSIDE RECORDS SUMMARY | 2025-03-02 09:07 | XMS_ITS | Clinical Summary ---
Author Organization [facility] Address [address] [place] [address] Care Team Providers Care Investment Banking Associate Name Role Phone Unavailable Primary Care Provider Unavailabl e Immunizations Immunization Administration Dates Next Due Covid-19, Mrna, Lnp-s, Pf, 30 Mcg/0.3 Ml Dose (P fizer) 06/08/2021 Social History Tobacco Use Types Packs/Day Years Used Date Smoking Tobacco: Never Assessed Comments Unknown Sex and Gender Information Value Date Recorded Sex Assigned at Not on file Legal Sex Female 11:50 AM CDT Gender Identity Not on file Sexual Orientation Not on file Plan of Treatment Health Maintenance Due Date Last Done Comments DEXA Bone Density 1955 Hepatitis C Virus (HCV) Screening 1955 TdaP Immunization 1955 Colonoscopy 1999 Colorectal Cancer Screening 1999 Cologuard 01/12/2004 Immunochemical Fecal Occult Blood 01/12/2004 Mammogram 01/12/2004 Pneumococcal Immunization (5 0+ years) (1 of 1 - PCV) 01/12/2004 Zoster Immunization (1 of 2) 01/12/2004 Influenza Immunization (#1) 2024 SARS-COV-2 Immunization ( season) 2024 06/08/2021, 09/20/2020, 08/30/2020 Respiratory Syncytial Virus (RSV) Immunization (Adult) (1 - 1-dose 75+ series) 2029 Hepatitis B Immunization Aged Out No longer eligible based on patient's age to complete this topic Meningococcal Immunization (ACWY) Aged Out No longer eligible b ased on patient's age to complete this topic Rotavirus Immunization Aged Out No lo nger eligible based on patient's age to complete this topic
[2025-03-02] MEDS: HYDROcodone/acetaminophen (*CRX) 5-325 MG TABLET 1 TAB PO ×2 (09:19→15:44)
--- NOTE | 2025-03-02 10:16 | ED.UPPEXIN ---
HPI - Extremity Injury (Upper) General Chief Complaint: Extremity Injury, Upper Stated Complaint: broken arm Time Seen by Provider: 03/02/25 08:41 History of Present Illness HPI narrative: Patient is a 70-year-old female with history of schizophrenia who lives that [facility] who presents ER with concerns for fracture of her right upper extremity. Patient had a fall yesterday causing her to hurt her right arm. Patient is a poor historian and some information was provided by her facilities coordinator. general warehouse worker states that patient seems more confused than typical. Related Data Home Medications ?Medication ?Instructions ?Recorded ?Confirmed ?Last Taken ?Type acetaminophen 325 mg tablet (Pain 325 mg PO Q6H PRN Pain 01/09/22 01/01/23 Unknown History Relief (acetaminophen)) bupropion HCl 150 mg tablet,12 hr See Rx Instructions .Route .COMPLEX 01/09/22 01/01/23 11/21/22 History sustained-release cholecalciferol (vitamin D3) 125 125 mcg PO DAILY 01/09/22 01/01/23 11/21/22 History mcg (5,000 unit) capsule ferrous sulfate 325 mg (65 mg 325 mg PO BID 01/09/22 01/01/23 11/21/22 History iron) tablet melatonin 3 mg capsule 3 mg PO QHS PRN Insomnia 01/09/22 01/01/23 Unknown History olanzapine 15 mg tablet 15 mg PO DAILY 01/09/22 01/01/23 11/20/22 History pravastatin 10 mg tablet 10 mg PO DAILY 01/09/22 01/01/23 11/20/22 History vitamin B complex (B 1 tablet PO DAILY 01/09/22 01/01/23 11/21/22 History Complex-Vitamin B12 tablet) calcium carbonate (Oyster Shell 500 mg PO BID 01/24/22 01/01/23 11/21/22 History Calcium) metformin 500 mg tablet 500 mg PO DAILY 01/24/22 01/01/23 11/20/22 History sertraline 100 mg tablet (Zoloft) 100 mg PO DAILY 01/24/22 01/01/23 11/21/22 History sertraline 50 mg tablet 50 mg PO DAILY 01/24/22 01/01/23 11/21/22 History warfarin 6 mg tablet 7.5 mg PO DAILY 04/25/22 01/01/23 11/20/22 History fluticasone propionate 50 2 spray intranasal DAILY 08/13/22 01/01/23 11/21/22 History mcg/actuation nasal spray,suspension metoprolol tartrate 75 mg tablet 75 mg PO BID 01/01/23 01/01/23 Unknown History Allergies Allergy/AdvReac Type Severity Reaction Status Date / Time No Known Allergies Allergy Verified 05/27/24 11:39 Review of Systems Review of Systems: All systems reviewed & are unremarkable except as noted in HPI and below Constitutional: Constitutional: Reports no additional constitutional complaints Cardiovascular: Cardiovascular: Reports no additional cardiovascular complaints Respiratory: Respiratory: Reports no additional respiratory complaints Gastrointestinal: Gastrointestinal: Reports no additional gastrointestinal complaints Musculoskeletal: Musculoskeletal: Reports no additional musculoskeletal complaints Neurologic: Reports system reviewed and no additional complaints, except as documented PMFSH Past Medical History Medical History (Updated 03/02/25 @ 18:03 by Sarwat Lala MD) COVID-19 Insomnia Moderate depressive disorder Chronic a-fib Diabetes type 2, controlled Bipolar disorder HDL deficiency HTN (hypertension) Schizophrenia Social History Social History Smoking status: Current every day smoker Alcohol intake: never Substance use: never Substance use type: does not use Lack of Transportation: No Lack of Food: Never True Current Housing: I Have Housing Concerned About Future Housing: No Difficulty Paying Gas/Electric Bills: Decline to Answer Difficulty Paying for Meds: No Currently Unemployed: No Education: Bachelor's Degree Difficulty w/ Childcare or Family Care: No Living arrangements: assisted living Spiritual care concerns: No Exam Narrative: GENERAL: Well-appearing, well-nourished, and in no acute distress. HEAD: Normocephalic, atraumatic. EYES: PERRL and EOMI. ENT: Mucous membranes moist. CHEST: Clear to auscultation. No respiratory distress. HEART: Regular rate and rhythm. Normal peripheral pulses. ABDOMEN: Soft, nontender, nondistended. EXTREMITIES: Tenderness of the right upper extremity with limited range of motion due to pain. Bruising right hand. Normal left upper extremity and bilateral lower extremities. SKIN: Warm, dry, no rash. NEURO: Alert and oriented x3. Course Course Emergency Course: 1255: Patient resting comfortably. Orthopedic surgery consulted. While in the ER heart rate suddenly went from 80 beats per minute to bradycardia in the mid 30s. Patient has had her home medications. She received some IV glucagon. Heart rate remains at 41 beats per minute and appears to be sinus. No hypotension. Patient denies any dizziness or nausea. This could be what provoked a fall causing injury. Will consult Cardiology. Admit to hospitalist. Orthopedic surgery recommends shoulder immobilizer. Cardiology will follow patient. No improvement with glucagon. Vital Signs Vital signs: Vital Signs Temperature 98.2 F 03/02/25 08:24 Pulse Rate 84 03/02/25 08:24 Respiratory Rate 16 03/02/25 08:24 Blood Pressure 119/84 03/02/25 08:24 Pulse Oximetry 98 03/02/25 08:24 Temperature 98.2 F 03/02/25 08:24 Pulse Rate 43 L 03/02/25 15:43 Respiratory Rate 16 03/02/25 15:43 Blood Pressure 120/42 L 03/02/25 15:43 Pulse Oximetry 97 03/02/25 15:43 MDM - Extremity Injury (Upper) Lab Data 03/02/25 10:33 03/02/25 15:26 Labs: Lab Results 03/02/25 03/02/25 03/02/25 Range/Units 10:33 11:36 12:56 WBC 6.3 (4.5-10.0) K/mm3 RBC 2.83 L (4.2-5.4) M/mm3 Hgb 8.5 L D (12.0-15.0) g/dL Hct 27.6 L (37.0-47.0) % MCV 97.5 (80-100) fl MCH 30.0 (26-34) pg MCHC 30.8 L (32-36) g/dl RDW 13.9 (11.5-14.5) % Plt Count 136 L (150-375) k/mm3 MPV 11.4 H (7.4-10.4) fl Immature Gran % (Auto) 0.3 (0-0.5) % Neut % (Auto) 79.3 H (45.5-73.1) % Lymph % (Auto) 12.2 L (18.3-44.2) % [place] % (Auto) 7.7 (2.6-8.5) % Eos % (Auto) 0.3 (0-4.4) % Baso % (Auto) 0.2 (0.2-1.2) % Lymph # (Auto) 0.77 L (0.9-3.2) K/mm3 [place] # (Auto) 0.5 (0.1-0.6) K/mm3 Eos # (Auto) 0.0 (0-0.3) K/mm3 Baso # (Auto) 0.0 (0.0-0.1) K/mm3 Abs Immat Gran (auto) 0.02 (0.00-0.031) K/mm3 Absolute Neuts (auto) 5.0 (1.3-6.7) K/mm3 Absolute Nucleated RBC 0.000 (0.0-0.012) K/mm3 Nucleated RBC % 0.0 (0.0-0.2) % % Immature Plt Fraction 7.4 (0.9-11.2) % PT 40.1 H (11.1-14.7) Seconds INR 4.4 APTT 60.4 H (22.3-36.8) Seconds Sodium 142 (137-145) mmol/L Potassium 3.6 (3.4-5.0) mmol/L Chloride 109 H (98-107) mmol/L Carbon Dioxide 25 (22-30) mmol/L Anion Gap 8 (4-12) mmol/L BUN 16 (7-17) mg/dL Creatinine 0.70 (0.7-1.0) mg/dL Estim Creat Clear Calc 57 ml/min Estimated GFR > 60 (59 - ) Glucose 155 H (65-110) mg/dL POC Capillary Glucose 135 H (65-105) mg/dl Calcium 8.4 (8.4-10.2) mg/dL Total Bilirubin 0.4 (0.2-1.3) mg/dL AST 31 (14-36) U/L ALT 25 (6-35) U/L Alkaline Phosphatase 62 (38-126) U/L Total Protein 6.7 (6.3-8.2) g/dL Albumin 3.5 (3.5-5.1) g/dL Urine Color Yellow (Yellow) Urine Appearance Clear (Clear) Urine pH 5.5 (5.0-9.0) Ur Specific [place] 1.033 (1.001-1.035) Urine Protein Trace (Negative) mg/dL Urine Glucose (UA) Negative (Negative) mg/dL Urine Ketones Trace H (Negative) mg/dL Ur Blood (Man) Negative (Negative) Urine Nitrate Positive H (Negative) Urine Bilirubin Negative (Negative) Urine Urobilinogen 1.0 (<2.0) mg/dL Add Ur Microanalysis Reviewed Leukocyte Esterase Rfl Trace H (Negative) CAITIE/UL Urine RBC 0-2 (0-2) /hpf Urine WBC 0-5 (0-3) /hpf Ur Squamous Epith Cells None seen (Few) /hpf Urine Bacteria 3+ H /hpf Urine Casts 0-2 Imaging Data Radiologist's impression: ITS Impressions Humerus X-Ray 03/02/25 09:16 Impression: Comminuted fracture the proximal humerus, predominantly involving the greater tuberosity and surgical neck, as detailed above. Shoulder X-Ray 03/02/25 09:19 Impression: Comminuted fracture of the proximal humerus, as detailed above. Head CT 03/02/25 10:57 IMPRESSION: No evidence for acute intracranial hemorrhage or calvarial fracture. ECG Data EKG #1: ECG completion date: 03/02/25 ECG completion time: 12:07 EKG Interpretation: bradycardia (37), sinus rhythm, non-specific ST changes and normal QRS Discharge Plan Discharge Clinical Impression: Fracture of proximal end of humerus, Bradycardia Patient Disposition: Still a Patient Condition: Stable
[2025-03-02 10:46] LABS: Hematocrit 27.6 % (37.0-47.0); Hemoglobin 8.5 g/dL (12.0-15.0); Immature Granulocyte Percent A 0.3 % (0-0.5); Immature Platelet Fraction Pct 7.4 % (0.9-11.2); Lymphocytes Absolute Auto 0.77 K/mm3 (0.9-3.2); Mean Corpuscular HGB Conc 30.8 g/dl (32-36); Mean Corpuscular Hemoglobin 30.0 pg (26-34); Mean Corpuscular Volume 97.5 fl (80-100); Nucleated Red Blood Cells Absolute Auto 0.000 K/mm3 (0.0-0.012); Nucleated Red Blood Cells Perc 0.0 % (0.0-0.2); Platelet Count Result 136 k/mm3 (150-375); Red Blood Count 2.83 M/mm3 (4.2-5.4); White Blood Count 6.3 K/mm3 (4.5-10.0)
[2025-03-02 10:50] LABS: Alanine Aminotransferase 25 U/L (6-35); Albumin Level 3.5 g/dL (3.5-5.1); Alkaline Phosphatase 62 U/L (38-126); Anion Gap 8 mmol/L (4-12); Aspartate Amino Transferase 31 U/L (14-36); Bilirubin,Total 0.4 mg/dL (0.2-1.3); Blood Urea Nitrogen 16 mg/dL (7-17); Calcium 8.4 mg/dL (8.4-10.2); Carbon Dioxide 25 mmol/L (22-30); Chloride 109 mmol/L (98-107); Estimated CRCL calculation 57 ml/min; Estimated Glomerular Filt Rate > 60; Glucose 155 mg/dL (65-110); Potassium 3.6 mmol/L (3.4-5.0); Sodium 142 mmol/L (137-145); Total Protein 6.7 g/dL (6.3-8.2)
[2025-03-02 10:57] LABS: INR 4.4; Prothrombin Time 40.1 Seconds (11.1-14.7)
[2025-03-02 10:58] LABS: Partial Thromboplastin Time 60.4 Seconds (22.3-36.8)
--- NOTE | 2025-03-02 11:11 | PC.NURSE ---
Bedside report given to this RN by Nnamid FLORES.
--- NOTE | 2025-03-02 11:43 | PC.NURSE ---
Pt. HR 38. Sinus Bradycardia on monitor. Caregiver at bedside reports pt. has a history of bradycardia.
--- NOTE | 2025-03-02 11:49 | ECG_ITS ---
Test Date: 2025-03-02 12:07:47 Measurements Intervals [place] Rate: 37 P: 62 RI: 136 QRS: -12 QRSD: 100 T: -73 QT: 519 QTc: 409 Interpretive Statements SINUS BRADYCARDIA ST DEVIATION AND MODERATE T-WAVE ABNORMALITY, CONSIDER LATERAL ISCHEMIA [-0.1+ mV T-WAVE IN I/aVL/V5/V6] CRITICAL TEST RESULT Compared to ECG 05/27/2024 14:38:00 Possible ischemia now present Atrial flutter no longer present Left-axis deviation no longer present Incomplete right bundle-branch block no longer present T-wave abnormality still present Electronically Signed On 03-02-2025 14:42:57 CDT by Kiko Ayala M.D.
[2025-03-02 12:01] LABS: Add Urine Microscopic? YES; Appearance Urine Clear (Clear); Glucose Urine UA Negative (Negative); Leukocyte Esterase Ur Trace LEU/UL (Negative); Need Manual Microscopic Reviewed; Nitrate Urine Positive (Negative); Non Pathogenic Casts 0-2; Specific Grav Ur 1.033 (1.001-1.035)
--- NOTE | 2025-03-02 12:01 | PC.NURSE ---
This RN called [facility] per Dr. Lala request to discuss pt. bradycardia. Edyta, caregiver at [facility] states pt. HR runs low, in the 50s.
[2025-03-02] MEDS: GLUCAGON FOR INJ 1 MG VIAL IV PUSH (12:51)
[2025-03-02] MEDS: WATER, STERILE FOR INJECTION 10 ML VIAL XX (12:52)
--- NOTE | 2025-03-02 14:15 | PC.NURSE ---
Pt. not placed in a gown d/t pain when attempting.
--- NOTE | 2025-03-02 14:18 | PC.NURSE ---
Pt. ordered meal tray to be delivered to bedside.
--- NOTE | 2025-03-02 14:34 | PM.CNCAR ---
Assessment and Plan Assessment and plan (1) PAF (paroxysmal atrial fibrillation): Code(s): I48.0 - Paroxysmal atrial fibrillation Status: Acute Assessment and Plan: In Sinus rhythm. [id number] 4. On Warfarin. INR managed by PCP. Once HR improves, consider Amiodarone to maintain sinus rhythm and prevent tachycardia in atrial fib/flutter. (2) Bradycardia: Code(s): R00.1 - Bradycardia, unspecified Status: Acute Assessment and Plan: Due to Metoprolol. Stop Metoprolol. Monitor HR. (3) Tobacco abuse: Code(s): Z72.0 - Tobacco use Status: Acute Assessment and Plan: Counseled regarding smoking cessation. (4) HTN (hypertension): Code(s): I10 - Essential (primary) hypertension Status: Acute Assessment and Plan: Stable. (5) Dyslipidemia: Code(s): E78.5 - Hyperlipidemia, unspecified Status: Acute Assessment and Plan: On Pravastatin. History of Present Illness History of Present Illness Consult date/time: 03/02/25 14:34 Reason For Visit: broken arm Narrative: 70 yr old woman who is my regular cardiology patient and a patient of Dr. Quiroz presents to ER after a fall. She has a history of persistent atrial fibrillation since 2017, DM, hypertension, dyslipidemia, depression, schizophrenia. Presents with a major case detective as she resides at rehab center. States she was walking and got dizzy and fell and hit a door with her right arm. She did not pass out. She has intermittent dizziness off and on through the years. She can walk only short distance due to falls and dizziness and off balance. She smokes 1-2 cigarettes per day. Denies chest pain, orthopnea, PND, edema. Cardiovascular Procedures Echo/MUGA:: 11/21/22 KEILA: EF 40-45%, mild LVE, mild LAE, right to left shunt s/o PFO, mild MR/TR. 02/27/22 Echo: EF 60-65%, mild LAE, trace MR/TR/PI. Electrophysiology:: 01/01/23 EK11/26/22 EKG: Atrial fibrillation at 131 bpm, IRBBB, delayed precordial R/S transition. 11/21/22 DC cardioversion: Successful from atrial flutter to sinus bradycardia at 35 bpm, given Atropine 0.5 mg IVx1 and HR went to 50 bpm. 11/07/22 EKG: Atrial flutter at 88 bpm, IRBBB, delayed precordial R/S transition, QTc 462 ms. 09/11/22 EKG: Atrial flutter at 93 bpm, IRBBB, delayed precordial R/S transition, QTc 361 ms. 08/13/22 EKG: Atrial flutter at 94 bpm, IRBBB, delayed precordial R/S transition, QTc 355 ms. 07/25/22 EKG: Atrial flutter at 122 bpm, IRBBB, delayed precordial R/S transition, QTc 224 ms. 06/19/22 EKG: Sinus bradycardia at 44 bpm, IRBBB, delayed precordial R/S transition. 11/13/21 EKG at [facility]: Sinus bradycardia, IVCD, low voltage. 11/23/21 30 day event monitor: Sinus rhythm HR range 35-70; average 43 bpm. Review of Systems Review of Systems: All systems reviewed & are unremarkable except as noted in HPI and below Constitutional: Constitutional: Reports as per HPI, Denies chills and Denies fever(s) Cardiovascular: Cardiovascular: Reports as per HPI and Denies chest pain Respiratory: Respiratory: Reports as per HPI, Denies dyspnea and Reports dyspnea on exertion Gastrointestinal: Gastrointestinal: Reports as per HPI and Denies abdominal pain Genitourinary: Genitourinary: Reports as per HPI and Denies dysuria Musculoskeletal: Musculoskeletal: Reports as per HPI and Reports arthralgias Neurologic: Reports as per HPI, Reports dizziness and Denies syncope [facility] Past Medical History Medical History Bipolar disorder Chronic a-fib COVID-19 Diabetes type 2, controlled HDL deficiency HTN (hypertension) Insomnia Moderate depressive disorder Schizophrenia Social History Social History Smoking status: Current every day smoker Alcohol intake: never Substance use: never Substance use type: does not use Lack of Transportation: No Lack of Food: Never True Current Housing: I Have Housing Concerned About Future Housing: No Difficulty Paying Gas/Electric Bills: Decline to Answer Difficulty Paying for Meds: No Currently Unemployed: No Education: Bachelor's Degree Difficulty w/ Childcare or Family Care: No Living arrangements: assisted living Spiritual care concerns: No Meds Home Medications and Allergies Home Medications ?Medication ?Instructions ?Recorded ?Confirmed ?Type acetaminophen 325 mg tablet (Pain 325 mg PO Q6H PRN Pain 01/09/22 01/01/23 History Relief (acetaminophen)) bupropion HCl 150 mg tablet,12 hr See Rx Instructions .Route .COMPLEX 01/09/22 01/01/23 History sustained-release cholecalciferol (vitamin D3) 125 125 mcg PO DAILY 01/09/22 01/01/23 History mcg (5,000 unit) capsule ferrous sulfate 325 mg (65 mg 325 mg PO BID 01/09/22 01/01/23 History iron) tablet melatonin 3 mg capsule 3 mg PO QHS PRN Insomnia 01/09/22 01/01/23 History olanzapine 15 mg tablet 15 mg PO DAILY 01/09/22 01/01/23 History pravastatin 10 mg tablet 10 mg PO DAILY 01/09/22 01/01/23 History vitamin B complex (B 1 tablet PO DAILY 01/09/22 01/01/23 History Complex-Vitamin B12 tablet) calcium carbonate (Oyster Shell 500 mg PO BID 01/24/22 01/01/23 History Calcium) metformin 500 mg tablet 500 mg PO DAILY 01/24/22 01/01/23 History sertraline 100 mg tablet (Zoloft) 100 mg PO DAILY 01/24/22 01/01/23 History sertraline 50 mg tablet 50 mg PO DAILY 01/24/22 01/01/23 History warfarin 6 mg tablet 7.5 mg PO DAILY 04/25/22 01/01/23 History fluticasone propionate 50 2 spray intranasal DAILY 08/13/22 01/01/23 History mcg/actuation nasal spray,suspension metoprolol tartrate 75 mg tablet 75 mg PO BID 01/01/23 01/01/23 History Allergies Allergy/AdvReac Type Severity Reaction Status Date / Time No Known Allergies Allergy Verified 05/27/24 11:39 Vital Signs Vital Signs - 24 hr 03/02/25 08:24 03/02/25 11:40 03/02/25 12:50 Temperature 98.2 F Pulse Rate 84 39 L 39 L Respiratory Rate 16 14 14 Blood Pressure 119/84 138/40 L 134/105 H Pulse Oximetry 98 100 98 03/02/25 14:02 Temperature Pulse Rate 40 L Respiratory Rate 14 Blood Pressure Pulse Oximetry 97 Exam Const: General: cooperative, healthy appearing and comfortable Resp: Auscultation: clear to auscultation bilaterally, no crackles, no rales, no rhonchi and no wheezes Cardio: Rate: bradycardic Rhythm: regular rhythm Heart sounds: no murmurs Peripheral pulses: dorsalis pedis present GI: GI Palp: No abdominal tenderness and Yes Soft to palpation Neuro: General: oriented to person, oriented to place and oriented to time Extrem: Right lower extremity: no edema Left lower extremity: no edema Results Labs and Meds 03/02/25 10:33 03/02/25 10:33 Lab results: Cardiac Enzymes 03/02/25 Range/Units 10:33 AST 31 (14-36) U/L Coagulation 03/02/25 Range/Units 10:33 PT 40.1 H (11.1-14.7) Seconds APTT 60.4 H (22.3-36.8) Seconds CBC 03/02/25 Range/Units 10:33 WBC 6.3 (4.5-10.0) K/mm3 RBC 2.83 L (4.2-5.4) M/mm3 Hgb 8.5 L D (12.0-15.0) g/dL Hct 27.6 L (37.0-47.0) % Plt Count 136 L (150-375) k/mm3 Lymph # (Auto) 0.77 L (0.9-3.2) K/mm3 [place] # (Auto) 0.5 (0.1-0.6) K/mm3 Eos # (Auto) 0.0 (0-0.3) K/mm3 Baso # (Auto) 0.0 (0.0-0.1) K/mm3 Comprehensive Metabolic Panel 03/02/25 Range/Units 10:33 Sodium 142 (137-145) mmol/L Potassium 3.6 (3.4-5.0) mmol/L Chloride 109 H (98-107) mmol/L Carbon Dioxide 25 (22-30) mmol/L BUN 16 (7-17) mg/dL Creatinine 0.70 (0.7-1.0) mg/dL Glucose 155 H (65-110) mg/dL Calcium 8.4 (8.4-10.2) mg/dL AST 31 (14-36) U/L ALT 25 (6-35) U/L Alkaline Phosphatase 62 (38-126) U/L Total Protein 6.7 (6.3-8.2) g/dL Albumin 3.5 (3.5-5.1) g/dL Intake and Output 03/01/25 03/02/25 03/02/25 23:59 07:59 15:59 Output Total 200 Balance -200 Output: Urine 200 Patient Weight 03/02/25 23:59 Weight 70 kg
--- NOTE | 2025-03-02 14:46 | P.HP_ITS ---
H&P: HPI History of Present Illness Date/Time: 03/02/25 14:46 Chief Complaint: FALL Narrative: 70-year-old female past medical history of schizophrenia hypertension, diabetes type 2, chronic AFib bipolar presents to the emergency room with right upper extremity pain after fall. HPI is limited due to patient's confusion and being a poor historian. There was a case finisher presents the emergency room which states that she is more confused than normal. Lab work in the ED shows anemia at 8.5 baseline last year was 13.0 INR 4.4, PTT 60.4 UA is positive for nitrates and trace leukocyte esterase 3+ bacteria. R ight humerus x-ray shows proximal fracture. Head CT shows no acute process. Orthopedics was consulted and states that the fracture can have non op management. Heart rate on admission was 99, however after a couple hours patient dropped her rate of 39. Patient was seen by Cardiology for bradycardia and recommends overnight admission for monitoring. Review of Systems Review of Systems: ROS unobtainable: Yes unobtainable due to medical condition and unobtainable due to mental status PMFSH Past Medical History Medical History (Updated 03/02/25 @ 18:03 by Sarwat Lala MD) COVID-19 Insomnia Moderate depressive disorder Chronic a-fib Diabetes type 2, controlled Bipolar disorder HDL deficiency HTN (hypertension) Schizophrenia Social History Social History Smoking status: Former smoker Tobacco type: cigarettes Alcohol intake: never Substance use: never Substance use type: does not use Lack of Transportation: No Lack of Food: Never True Current Housing: I Have Housing Concerned About Future Housing: No Difficulty Paying Gas/Electric Bills: Decline to Answer Difficulty Paying for Meds: No Currently Unemployed: No Education: Bachelor's Degree Difficulty w/ Childcare or Family Care: No Living arrangements: assisted living Spiritual care concerns: No Meds Home Medications and Allergies Home Medications ?Medication ?Instructions ?Recorded ?Confirmed ?Type acetaminophen 325 mg tablet (Pain 650 mg PO Q6H PRN pain (scale 01/09/22 03/02/25 History Relief (acetaminophen)) score 1-3) bupropion HCl 150 mg tablet,12 hr See Rx Instructions .Route .COMPLEX 01/09/22 03/02/25 History sustained-release cholecalciferol (vitamin D3) 125 125 mcg PO DAILY 01/09/22 03/02/25 History mcg (5,000 unit) capsule ferrous sulfate 325 mg (65 mg 325 mg PO BID 01/09/22 03/02/25 History iron) tablet melatonin 3 mg capsule 3 mg PO QHS PRN Insomnia 01/09/22 03/02/25 History olanzapine 15 mg tablet 15 mg PO DAILY 01/09/22 03/02/25 History pravastatin 10 mg tablet 10 mg PO DAILY 01/09/22 03/02/25 History vitamin B complex (B 1 tablet PO DAILY 01/09/22 03/02/25 History Complex-Vitamin B12 tablet) calcium carbonate (Oyster Shell 500 mg PO BID 01/24/22 03/02/25 History Calcium) sertraline 100 mg tablet (Zoloft) 100 mg PO DAILY 01/24/22 03/02/25 History sertraline 50 mg tablet 50 mg PO DAILY 01/24/22 03/02/25 History fluticasone propionate 50 2 spray intranasal DAILY 08/13/22 03/02/25 History mcg/actuation nasal spray,suspension metoprolol tartrate 75 mg tablet 75 mg PO BID 01/01/23 03/02/25 History amiodarone 100 mg tablet 100 mg PO DAILY 03/02/25 03/02/25 History buspirone 10 mg tablet 10 mg PO DAILY 03/02/25 03/02/25 History famotidine 20 mg tablet 20 mg PO DAILY 03/02/25 03/02/25 History hydrocortisone 1 % topical cream 1 applic topical DAILY 03/02/25 03/02/25 History menthol 5 % topical gel (Biofreeze 1 ea topical DAILY 03/02/25 03/02/25 History (menthol)) rivaroxaban 20 mg tablet (Xarelto) 20 mg PO QPM 03/02/25 03/02/25 History Allergies Allergy/AdvReac Type Severity Reaction Status Date / Time No Known Allergies Allergy Verified 05/27/24 11:39 Vital Signs Vital Signs - 24 hr 03/02/25 08:24 03/02/25 11:40 03/02/25 12:50 Temperature 98.2 F Pulse Rate 84 39 L 39 L Respiratory Rate 16 14 14 Blood Pressure 119/84 138/40 L 134/105 H Pulse Oximetry 98 100 98 03/02/25 14:02 Temperature Pulse Rate 40 L Respiratory Rate 14 Blood Pressure Pulse Oximetry 97 Exam Narrative: General: well appearing, appears stated age. HEENT: normocephalic, atraumatic. Mucous membranes moist. EOMI, PERRLA, bilateral sclera anicteric, no conjunctival injection. Neck supple without JVD, lymphadenopathy, or bruit. Respiratory: clear to ascultation bilaterally. No rales/rhonic/wheezes. Cardiovascular: Regular rate and rhythm, normal S1-S2 upon ascultation. No murmurs, rubs, or clicks. PMI is nondisplaced, capillary refill less than 3 second. Abdomen: Soft, round, no pulsatile masses, nondistended and nontender. No rebound, no guarding. No CVA tenderness, no hepatosplenomegaly. Bowel sounds present to all four quadrants. No high pitch or tinkling sounds, resonant to percussion. Extremities: No cyanosis, clubbing, or edema present. Pulses are palpable 2/2. Active ROM to all four extremities. Neuro: Alert and orientated x 0. Patient did not know her own name. PERRLA. Cranial nerves 2-12 intact without focal deficit. Skin: Warm, dry, and intact, without rash, erythema, or lesion. Psych: pleasant, cooperative, normal speech, normal affect, no hallucinations, no dysarthia H&P: Results Labs Labs: Short CBC 03/02/25 Range/Units 10:33 WBC 6.3 (4.5-10.0) K/mm3 Hgb 8.5 L D (12.0-15.0) g/dL Hct 27.6 L (37.0-47.0) % Plt Count 136 L (150-375) k/mm3 BMP 03/02/25 10:33 Sodium 142 Potassium 3.6 Chloride 109 H Carbon Dioxide 25 BUN 16 Creatinine 0.70 Glucose 155 H Calcium 8.4 Liver Function 03/02/25 Range/Units 10:33 Total Bilirubin 0.4 (0.2-1.3) mg/dL AST 31 (14-36) U/L ALT 25 (6-35) U/L Alkaline Phosphatase 62 (38-126) U/L Albumin 3.5 (3.5-5.1) g/dL Urine 03/02/25 Range/Units 11:36 Urine Color Yellow (Yellow) Urine Appearance Clear (Clear) Urine pH 5.5 (5.0-9.0) Ur Specific [place] 1.033 (1.001-1.035) Urine Protein Trace (Negative) mg/dL Urine Glucose (UA) Negative (Negative) mg/dL Assessment and Plan Assessment and plan (1) Bradycardia: Code(s): R00.1 - Bradycardia, unspecified Status: Acute Assessment and Plan: Cardiology consulted recommendations of stopping metoprolol and monitoring overnight Patient will likely be discharged on amiodarone Telemetry monitoring (2) Right humeral fracture: Code(s): S42.301A - Unspecified fracture of shaft of humerus, right arm, initial encounter for closed fracture Status: Acute Assessment and Plan: After fall Non op management Pain control Continue immobilizer (3) Anemia: Code(s): D64.9 - Anemia, unspecified Status: Acute Assessment and Plan: Anemia workup pending (4) Supratherapeutic INR: Code(s): R79.1 - Abnormal coagulation profile Status: Acute Assessment and Plan: 4.4 on admission Hold Xarelto INR in the a.m. (5) UTI (urinary tract infection): Code(s): N39.0 - Urinary tract infection, site not specified Status: Acute Assessment and Plan: Rocephin Sensitivity and culture pending (6) Schizophrenia: Code(s): F20.9 - Schizophrenia, unspecified Status: Acute Assessment and Plan: Continue Zyprexa Continue antipsychotics (7) HTN (hypertension): Code(s): I10 - Essential (primary) hypertension Status: Acute (8) PAF (paroxysmal atrial fibrillation): Code(s): I48.0 - Paroxysmal atrial fibrillation Status: Acute Assessment and Plan: Discharged to Cardiology for management as she is bradycardic at this time Echocardiogram pending (9) Diabetes type 2, controlled: Code(s): E11.9 - Type 2 diabetes mellitus without complications Status: Acute Assessment and Plan: Patient does not appear to be on medications A.c. HS Low-dose SSI Quality If No VTE Prophylaxis Answer both mechanical and pharmacologic: Reason no pharmacologic proph: medical contraindication Hospitalist MIPS Advance Care Plan I have confirmed that the patient's Advanced Care Plan is present, code status is documented, or surrogate decision maker is listed in patient medical record.: Yes Medication Reconciliation I have utilized all available resources to obtain, update and review the patients current medications (includes all prescriptions, OTC, herbals, cannabis, and nutritional supplements).: Yes
[2025-03-02] MEDS: cefTRIAXone 1 GM in SODIUM CHLORIDE 0.9% IV 50 ML 100 ML IVPB (15:46)
[2025-03-02 15:50] LABS: Anion Gap 7 mmol/L (4-12); Blood Urea Nitrogen 15 mg/dL (7-17); Calcium 8.4 mg/dL (8.4-10.2); Carbon Dioxide 26 mmol/L (22-30); Chloride 108 mmol/L (98-107); Estimated CRCL calculation 56 ml/min; Estimated Glomerular Filt Rate > 60; Glucose 151 mg/dL (65-110); Potassium 3.5 mmol/L (3.4-5.0); Sodium 141 mmol/L (137-145)
--- NOTE | 2025-03-02 15:50 | PC.NURSE ---
Operation Supervisor from [facility] leaving bedside.
--- NOTE | 2025-03-02 16:29 | PC.NURSE ---
Dinner tray ordered for pt. to be delivered to bedside. R. bicep remains swollen, bruised and tight. Swelling is not worse. Strong R. radial pulse.
--- NOTE | 2025-03-02 17:47 | PC.NURSE ---
Pt. sitting up in bed eating ordered meal tray.
--- NOTE | 2025-03-02 18:12 | PC.NURSE ---
Pt. ate 50% of delivered meal tray.
--- NOTE | 2025-03-02 19:49 | ADMGEN ---
This patient, Elyse Greer, was admitted to IMU Room 232-01. Patient/family oriented to hospital policies and general routines including ID bracelet, bed and alarms, visiting hours, pain management, procedures, bathroom and other care routines, personal items, smoking policy, room service/diet, and visiting hours. Information on how to activate the Rapid Response Team has been discussed. Patient/Family are encouraged to report perceived risks to care and to ask questions if they do not understand what they are told or what they should do.
[2025-03-02] MEDS: DOCUSATE SODIUM 100 MG CAPSULE PO (20:19)
[2025-03-02] MEDS: ACETAMINOPHEN 325 MG TABLET 650 MG PO (20:19)
[2025-03-02] MEDS: SODIUM CHLORIDE 0.9% IV 1,000 ML 75 ML IV CONT (20:21)
[2025-03-03] VITALS (23 sets, daily range): BP systolic 110–165; BP diastolic 53–91; PULSE 43–130; RESP 16–24; TEMP 36.5–38.1; O2SAT 93–100
--- NOTE | 2025-03-03 | ECHO_ITS ---
Patient Info Name: Elyse Greer Age: 70 years : 1955 Gender: Female Ht: 65 in Wt: 154 lbs BSA: 1.80 m2 HR: 109 bpm BP: 149 / 75 mmHg Heart Rhythm: Atrial Fibrillation Technical Quality: Good Exam Date: 03/03/2025 8:34 AM Patient Status: I Admit Date: 03/02/2025 Exam Type: CA echo dop color flow w con Complete two-dimensional, color flow and Doppler transthoracic echocardiogram is performed with contrast to opacify the left ventricle and to improve the deliniation of the left ventricle endocardial borders. Staff Referring Physician: Sarwat Lala MD Edi Programmer Analyst: Nya Erazo Attending Provider: Danis Justice Contrast/Agitated Saline Contrast/Ag. Saline: Definity Amount: 2.00 ml Administered By: Nya Erazo Existing IV Access: Yes IV Access Condition: patent with no signs of infiltration Summary 1. Definity contrast administered improved wall motion interpretation. 2. Left ventricular chamber dimension is normal. 3. Left ventricular systolic function is normal, estimated at 55-60. 4. The left ventricular diastolic function is indeterminate. 5. Tissue doppler E/e' not performed. 6. Atrial fibrillation. 7. Left atrial chamber dimension is moderately enlarged. 8. There is mild mitral valve regurgitation. 9. No pulmonary hypertension, estimated pulmonary arterial systolic pressure is 31 mmHg. 10. There is mild pulmonic regurgitation. Left Ventricle Definity contrast administered improved wall motion interpretation. Left ventricular chamber dimension is normal. Left ventricular systolic function is normal, estimated at 55-60. The left ventricular diastolic function is indeterminate. Tissue doppler E/e' not performed. Atrial fibrillation. Right Ventricle Right ventricular chamber dimension is normal. Right ventricular systolic function is normal and with normal TAPSE 2.0 cm. Left Atria Left atrial chamber dimension is moderately enlarged. Right Atria Right atrial chamber dimension is normal. Aortic Valve The aortic valve is trileaflet. There is no aortic valve stenosis. There is no aortic valve regurgitation. Pulmonic Valve There is mild pulmonic regurgitation. Mitral Valve There is no mitral valve stenosis. There is mild mitral valve regurgitation. Tricuspid Valve There is no tricuspid valve regurgitation. No pulmonary hypertension, estimated pulmonary arterial systolic pressure is 31 mmHg. Pericardium/Pleural There is no pericardial effusion. Inferior Vena Cava Normal inferior vena cava with >50% collapse upon inspiration consistent with normal right atrial pressure, 5 mmHg. Aorta The aortic root size at the sinus of Valsalva is normal. Left Ventricular Outflow Tract Name Value Normal LVOT 2D LVOT Diameter 1.9 cm LVOT Doppler LVOT Peak Velocity 95 cm/s LVOT Peak Gradient 4 mmHg LVOT Mean Gradient 2 mmHg LVOT VTI 13 cm LVOT VTI/AV VTI Ratio 0.8 LVOT Stroke Volume 39 ml LVOT CO 3.4 l/min LVOT CI 1.9 l/min/m2 Pulmonic Valve Name Value Normal PV Doppler PV Peak Velocity 122 cm/s PV Peak Gradient 6 mmHg PV Regurgitation Doppler MD Peak End Diastolic Velocity 99 cm/s Mitral Valve Name Value Normal MV Regurgitation Doppler MR Peak Gradient 89 mmHg Tricuspid Valve Name Value Normal TV Regurgitation Doppler TR Peak Velocity 255 cm/s TR Peak Gradient 26 mmHg Estimated PAP/RSVP RA Pressure 5 mmHg <=5 PA Systolic Pressure 31 mmHg <36 RV Systolic Pressure 31 mmHg <36 TV Annular TDI TV Lateral Shavonne s' Velocity 9.6 cm/s >=9.5 Aortic Valve Name Value Normal AV Doppler AV Peak Velocity 115 cm/s AV Peak Gradient 5 mmHg AV Mean Gradient 3 mmHg AV VTI 16 cm AV Area (Cont Eq VTI) 2.4 cm2 >=3.0 AV Area (Cont Eq Axel) 2.4 cm2 AV DI (Axel) 0.83 AV Regurgitation 2D LVOT Area 2.9 cm2 Ventricles Name Value Normal LV Dimensions 2D/MM IVS Diastolic Thickness (2D) 1.0 cm 0.6-1.0 LVID Diastole (2D) 4.5 cm 3.8-5.2 LVIW Diastolic Thickness (2D) 1.0 cm 0.6-0.9 LVID Systole (2D) 3.1 cm 2.2-3.5 LVOT Diameter 1.9 cm LV Mass (2D Cubed) 153.68 g 67.00-162.00 LV Mass Index (2D Cubed) 85 g/m2 43-95 Relative Wall Thickness (2D) 0.44 <=0.42 LV Fractional Shortening/Ejection Fraction 2D/MM LV Fractional Shortening (2D) 31 % 27-45 LV EF (2D Teichholz) 59 % LV Diastolic Volume (4C MOD) 95 ml LV EF (4C MOD) 47 % LV Diastolic Volume (2C MOD) 103 ml LV EF (2C MOD) 43 % LV Diastolic Volume (BP MOD) 100 ml 46-106 LV Diastolic Volume Index (BP MOD) 55 ml/m2 29-61 LV Systolic Volume (BP MOD) 55 ml 14-42 LV Systolic Volume Index (BP MOD) 30 ml/m2 8-24 LV EF (BP MOD) 45 % 54-74 LV Diastolic Length (4C) 7.5 cm LV Systolic Length (4C) 6.2 cm LV Stroke Volume (4C MOD) 44 ml Atria Name Value Normal LA Dimensions LA Volume (4C A-L) 51 ml LA Volume (BP A-L) 54 ml RA Dimensions RA Systolic Major Wayne Length (4C) 5.1 cm 2.2-2.8 RA Area (4C) 14.3 cm2 <=18.0 Report Signatures
[2025-03-03 05:27] LABS: Hematocrit 25.0 % (37.0-47.0); Hemoglobin 7.7 g/dL (12.0-15.0); Immature Granulocyte Percent A 0.7 % (0-0.5); Lymphocytes Absolute Auto 0.80 K/mm3 (0.9-3.2); Mean Corpuscular HGB Conc 30.8 g/dl (32-36); Mean Corpuscular Hemoglobin 30.2 pg (26-34); Mean Corpuscular Volume 98.0 fl (80-100); Nucleated Red Blood Cells Absolute Auto 0.000 K/mm3 (0.0-0.012); Nucleated Red Blood Cells Perc 0.0 % (0.0-0.2); Platelet Count Result 118 k/mm3 (150-375); Red Blood Count 2.55 M/mm3 (4.2-5.4); White Blood Count 6.7 K/mm3 (4.5-10.0)
[2025-03-03 05:39] LABS: Iron 29 ug/dL (37-170)
[2025-03-03 05:45] LABS: INR 1.6; Prothrombin Time 18.3 Seconds (11.1-14.7)
[2025-03-03 05:48] LABS: Percent Iron Saturation 12 % (20-50)
[2025-03-03 06:41] LABS: Vitamin B12 749.0 pg/mL (239-931)
--- NOTE | 2025-03-03 06:42 | ECG_ITS ---
Test Date: 2025-03-03 13:02:15 Measurements Intervals [place] Rate: 119 P: 0 LA: 0 QRS: -27 QRSD: 104 T: 149 QT: 358 QTc: 504 Interpretive Statements ATRIAL FIBRILLATION WITH RAPID VENTRICULAR RESPONSE BORDERLINE LEFT AXIS DEVIATION [QRS AXIS < -20] POSSIBLE LEFT VENTRICULAR HYPERTROPHY [VOLTAGE CRITERIA PLUS LAE OR QRS WIDENING] ST DEVIATION AND MODERATE T-WAVE ABNORMALITY, CONSIDER LATERAL ISCHEMIA [-0.1+ mV T-WAVE IN I/aVL/V5/V6] Compared to ECG 03/02/2025 12:07:47 Sinus bradycardia no longer present T-wave abnormality still present Possible ischemia still present Electronically Signed On 03-03-2025 13:16:57 CDT by Wilbur Finley M.D.
--- NOTE | 2025-03-03 08:07 | PM.PNCARD ---
Progress Note: A&P Assessment and Plan (1) PAF (paroxysmal atrial fibrillation): Code(s): I48.0 - Paroxysmal atrial fibrillation Status: Acute Assessment and Plan: In rapid atrial fib. [id number] 4. On Xarelto. Start Amiodarone drip to cardiovert to maintain sinus rhythm without Metoprolol so she won't be bradycardic. She could have tachy-heather syndrome. (2) Bradycardia: Code(s): R00.1 - Bradycardia, unspecified Status: Acute Assessment and Plan: Due to Metoprolol. Stopped Metoprolol. Monitor HR. (3) Tobacco abuse: Code(s): Z72.0 - Tobacco use Status: Acute Assessment and Plan: Counseled regarding smoking cessation. (4) HTN (hypertension): Code(s): I10 - Essential (primary) hypertension Status: Acute Assessment and Plan: Stable. (5) Dyslipidemia: Code(s): E78.5 - Hyperlipidemia, unspecified Status: Acute Assessment and Plan: On Pravastatin. Subjective Date/time seen: 03/03/25 08:07 Interval history: Denies chest pain or sob. No dizziness this morning. Exam Const: General: cooperative, healthy appearing and comfortable Orientation/consciousness: oriented to person, oriented to place and oriented to time Resp: Auscultation: clear to auscultation bilaterally, no crackles, no rales, no rhonchi and no wheezes Cardio: Rate: regular rate Rhythm: abnormal rhythm Heart sounds: no murmurs Peripheral pulses: dorsalis pedis present Neuro: General: oriented to person, oriented to place and oriented to time Extrem: Right lower extremity: no edema Left lower extremity: no edema Objective Data Vital Signs Vital Signs: Vital Signs - 24 hr 03/02/25 08:24 03/02/25 11:40 03/02/25 12:50 Temperature 98.2 F Pulse Rate 84 39 L 39 L Respiratory Rate 16 14 14 Blood Pressure 119/84 138/40 L 134/105 H Pulse Oximetry 98 100 98 Oxygen Delivery Fraction of Inspired Oxygen 03/02/25 14:02 03/02/25 15:43 03/02/25 18:06 Temperature Pulse Rate 40 L 43 L 44 L Respiratory Rate 14 16 15 Blood Pressure 120/42 L 128/74 Pulse Oximetry 97 97 99 Oxygen Delivery Fraction of Inspired Oxygen 03/02/25 19:20 03/02/25 20:00 03/02/25 20:00 Temperature 97.6 F Pulse Rate 43 L 44 L 44 L Respiratory Rate 18 20 Blood Pressure 137/39 L Pulse Oximetry 95 97 Oxygen Delivery Room Air Fraction of Inspired Oxygen 03/02/25 20:04 03/02/25 22:00 03/02/25 22:21 Temperature Pulse Rate 44 L 54 L 48 L Respiratory Rate 20 Blood Pressure Pulse Oximetry 97 Oxygen Delivery Room Air Fraction of Inspired Oxygen 03/02/25 23:48 03/02/25 23:48 03/03/25 00:41 Temperature 97.7 F Pulse Rate 44 L 44 L 43 L Respiratory Rate 20 18 Blood Pressure 149/64 H Pulse Oximetry 97 95 Oxygen Delivery Room Air Fraction of Inspired Oxygen 03/03/25 02:00 03/03/25 03:35 03/03/25 03:35 Temperature Pulse Rate 104 H 110 H 118 H Respiratory Rate 18 Blood Pressure Pulse Oximetry 95 Oxygen Delivery Room Air Fraction of Inspired Oxygen 03/03/25 03:46 03/03/25 05:23 03/03/25 08:00 Temperature 98.1 F 97.7 F Pulse Rate 107 H 109 H 124 H Respiratory Rate 16 16 Blood Pressure 149/75 H 136/91 H Pulse Oximetry 98 100 Oxygen Delivery Fraction of Inspired Oxygen Intake/Output Intake/Output: Intake & Output 02/28/25 03/01/25 03/02/25 03/03/25 23:59 23:59 23:59 23:59 Intake Total 50 Output Total 200 200 Balance -150 -200 Meds/Results Medications: Active Medications Generic Name Dose Route Start Last Admin Trade Name Freq PRN Reason Stop Dose Admin Acetaminophen 650 mg 03/02/25 14:08 03/02/25 20:19 Acetaminophen 325 Mg Tablet PO 650 mg Q4H PRN Administration Mild Pain (1-3) or Fever Hydrocodone Bitart/Acetaminophen 1 tab 03/02/25 14:08 03/02/25 15:44 Hydrocodone/Acetaminophen (*Crx) 5-325 Mg Tablet PO 1 tab Q4H PRN Administration Pain Rated 4-6 Bupropion HCl 150 mg 03/03/25 09:00 Bupropion Hcl Sr (12 Hr) 150 Mg Tab BY MOUTH Q12HR SARITA Buspirone HCl 10 mg 03/03/25 09:00 Buspirone Hcl 10 Mg Tablet PO DAILY [facility] Dextrose 12.5 gm 03/02/25 23:20 Dextrose 50% 25 Gm/50 Ml Syringe IV PUSH PRN PRN Hypoglycemia Protocol Docusate Sodium 100 mg 03/02/25 17:00 03/02/25 20:19 Docusate Sodium 100 Mg Capsule PO 100 mg BID SARITA Administration Glucagon 1 mg 03/02/25 23:20 Glucagon For Inj 1 Mg Vial IM PRN PRN Hypoglycemia Protocol Glucose 15 gm 03/02/25 23:20 Glucose Oral Gel 15 Gm Of Glucse In 37.5 Gm Tube PO PRN PRN Hypoglycemia Protocol Ceftriaxone Sodium 1 gm/ 50 mls @ 100 mls/hr 03/02/25 16:00 03/02/25 16:16 Sodium Chloride IVPB Infused Q24H SARITA Infusion Sodium Chloride 1,000 mls @ 75 mls/hr 03/02/25 15:00 03/03/25 06:23 Normal Saline Iv IV CONT Not Given .[id number] [facility] Dextrose 1,000 mls @ 100 mls/hr 03/02/25 23:20 Dextrose 5% 1,000 Ml IVPB PRN PRN Hypoglycemia Protocol Insulin Aspart 2 - 5 units 03/03/25 08:00 Insulin Aspart (*Bkc) 100 Units/Ml SUB-Q TIDWM [facility] Protocol Melatonin 3 mg 03/02/25 23:16 Melatonin 3 Mg Tablet PO QHS PRN Insomnia Morphine Sulfate 2 mg 03/02/25 14:08 Morphine Sulfate (*Crx) 2 Mg/Ml Inj IV PUSH Q2H PRN Pain Rated 7-10 Olanzapine 15 mg 03/03/25 09:00 Olanzapine 5 Mg Tablet PO DAILY [facility] Ondansetron HCl 4 mg 03/02/25 14:08 Ondansetron Inj 4 Mg/2 Ml Vial IV PUSH Q4H PRN Nausea Perflutren Lipid Microsphere 0 ml 03/02/25 15:26 Perflutren Lipid Microspheres 1.5 Ml Vial Diluted To 10 Ml Total Volume IV PUSH 03/05/25 15:27 ONCE PRN adequate visualization Protocol Pravastatin Sodium 10 mg 03/03/25 09:00 Pravastatin Sodium 10 Mg Tablet PO DAILY [facility] Sertraline HCl 100 mg 03/03/25 09:00 Sertraline Hcl 50 Mg Tablet PO DAILY [facility] Radiology Results: ITS Impressions Humerus X-Ray 03/02/25 09:16 Impression: Comminuted fracture the proximal humerus, predominantly involving the greater tuberosity and surgical neck, as detailed above. Shoulder X-Ray 03/02/25 09:19 Impression: Comminuted fracture of the proximal humerus, as detailed above. Head CT 03/02/25 10:57 IMPRESSION: No evidence for acute intracranial hemorrhage or calvarial fracture. Labs Labs: Laboratory Results - last 24 hr 03/02/25 03/02/25 03/02/25 10:33 11:36 12:56 WBC 6.3 RBC 2.83 L Hgb 8.5 L D Hct 27.6 L MCV 97.5 MCH 30.0 MCHC 30.8 L RDW 13.9 Plt Count 136 L MPV 11.4 H Immature Gran % (Auto) 0.3 Neut % (Auto) 79.3 H Lymph % (Auto) 12.2 L [place] % (Auto) 7.7 Eos % (Auto) 0.3 Baso % (Auto) 0.2 Lymph # (Auto) 0.77 L [place] # (Auto) 0.5 Eos # (Auto) 0.0 Baso # (Auto) 0.0 Abs Immat Gran (auto) 0.02 Absolute Neuts (auto) 5.0 Absolute Nucleated RBC 0.000 Nucleated RBC % 0.0 % Immature Plt Fraction 7.4 PT 40.1 H INR 4.4 APTT 60.4 H Sodium 142 Potassium 3.6 Chloride 109 H Carbon Dioxide 25 Anion Gap 8 BUN 16 Creatinine 0.70 Estim Creat Clear Calc 57 Estimated GFR > 60 Glucose 155 H POC Capillary Glucose 135 H Calcium 8.4 Iron TIBC % Saturation Total Bilirubin 0.4 AST 31 ALT 25 Alkaline Phosphatase 62 Total Protein 6.7 Albumin 3.5 Vitamin B12 Folate Urine Color Yellow Urine Appearance Clear Urine pH 5.5 Ur Specific [place] 1.033 Urine Protein Trace Urine Glucose (UA) Negative Urine Ketones Trace H Ur Blood (Man) Negative Urine Nitrate Positive H Urine Bilirubin Negative Urine Urobilinogen 1.0 Add Ur Microanalysis Reviewed Leukocyte Esterase Rfl Trace H Urine RBC 0-2 Urine WBC 0-5 Ur Squamous Epith Cells None seen Urine Bacteria 3+ H Urine Casts 0-2 03/02/25 03/02/25 03/03/25 15:26 20:21 05:07 WBC 6.7 RBC 2.55 L Hgb 7.7 L Hct 25.0 L MCV 98.0 MCH 30.2 MCHC 30.8 L RDW 13.9 Plt Count 118 L MPV 11.9 H Immature Gran % (Auto) 0.7 H Neut % (Auto) 76.3 H Lymph % (Auto) 12.0 L [place] % (Auto) 8.8 H Eos % (Auto) 1.9 Baso % (Auto) 0.3 Lymph # (Auto) 0.80 L [place] # (Auto) 0.6 Eos # (Auto) 0.1 Baso # (Auto) 0.0 Abs Immat Gran (auto) 0.05 H Absolute Neuts (auto) 5.1 Absolute Nucleated RBC 0.000 Nucleated RBC % 0.0 % Immature Plt Fraction PT 18.3 H D INR 1.6 APTT Sodium 141 Potassium 3.5 Chloride 108 H Carbon Dioxide 26 Anion Gap 7 BUN 15 Creatinine 0.71 Estim Creat Clear Calc 56 Estimated GFR > 60 Glucose 151 H POC Capillary Glucose 137 H Calcium 8.4 Iron 29 L TIBC 238 L % Saturation 12 L Total Bilirubin AST ALT Alkaline Phosphatase Total Protein Albumin Vitamin B12 749.0 Folate 6.1 Urine Color Urine Appearance Urine pH Ur Specific [place] Urine Protein Urine Glucose (UA) Urine Ketones Ur Blood (Man) Urine Nitrate Urine Bilirubin Urine Urobilinogen Add Ur Microanalysis Leukocyte Esterase Rfl Urine RBC Urine WBC Ur Squamous Epith Cells Urine Bacteria Urine Casts 03/03/25 07:39 WBC RBC Hgb Hct MCV MCH MCHC RDW Plt Count MPV Immature Gran % (Auto) Neut % (Auto) Lymph % (Auto) [place] % (Auto) Eos % (Auto) Baso % (Auto) Lymph # (Auto) [place] # (Auto) Eos # (Auto) Baso # (Auto) Abs Immat Gran (auto) Absolute Neuts (auto) Absolute Nucleated RBC Nucleated RBC % % Immature Plt Fraction PT INR APTT Sodium Potassium Chloride Carbon Dioxide Anion Gap BUN Creatinine Estim Creat Clear Calc Estimated GFR Glucose POC Capillary Glucose 122 H Calcium Iron TIBC % Saturation Total Bilirubin AST ALT Alkaline Phosphatase Total Protein Albumin Vitamin B12 Folate Urine Color Urine Appearance Urine pH Ur Specific [place] Urine Protein Urine Glucose (UA) Urine Ketones Ur Blood (Man) Urine Nitrate Urine Bilirubin Urine Urobilinogen Add Ur Microanalysis Leukocyte Esterase Rfl Urine RBC Urine WBC Ur Squamous Epith Cells Urine Bacteria Urine Casts
[2025-03-03] MEDS: PERFLUTREN LIPID MICROSPHERES 1.5 ML VIAL DILUTED TO 10 ML TOTAL VOLUME IV PUSH (10:16)
--- NOTE | 2025-03-03 10:16 | IVDEFINITY ---
Prior to administration of IV Definity the patient was educated on the risks and benefits of the imaging enhancing agent including potential adverse side effects. The patient verbalized understanding. Allergies were verified. No exclusion criteria were identified and at least one of the following inclusion criteria were met: 1) physician request, 2) patient technically difficult to image (per the [place] [employer] guidelines of two or more segments not discernable within the apical view), or 3) questionable left ventricular function. ?
[2025-03-03] MEDS: buPROPion HCL SR (12 HR) 150 MG TAB BY MOUTH ×2 (10:21→20:21)
[2025-03-03] MEDS: SERTRALINE HCL 50 MG TABLET 100 MG PO (10:22)
[2025-03-03] MEDS: PRAVASTATIN SODIUM 10 MG TABLET PO (10:22)
[2025-03-03] MEDS: DOCUSATE SODIUM 100 MG CAPSULE PO ×2 (10:22→17:50)
[2025-03-03] MEDS: IRON SUCROSE COMPLEX 400 MG, IRON SUCROSE COMPLEX 100 MG in SODIUM CHLORIDE 0.9% IV 250 ML 78.57 MG IVPB (10:51)
--- NOTE | 2025-03-03 15:09 | P.PNIM_ITS ---
Progress Note: A&P Assessment and Plan (1) Bradycardia: Code(s): R00.1 - Bradycardia, unspecified Status: Acute Assessment and Plan: Cardiology consulted recommendations of stopping metoprolol and monitoring tessa valentino now on Amiodarone infusion Cardiology following monitor (2) Right humeral fracture: Code(s): S42.301A - Unspecified fracture of shaft of humerus, right arm, initial encounter for closed fracture Status: Acute Assessment and Plan: After fall Non op management Pain control Continue immobilizer (3) Anemia: Code(s): D64.9 - Anemia, unspecified Status: Acute Assessment and Plan: with iron deficiency iron sat 12 started on IV iron 500/1000 mg (4) Supratherapeutic INR: Code(s): R79.1 - Abnormal coagulation profile Status: Acute Assessment and Plan: 4.4 on admission Hold Xarelto INR in the a.m. (5) UTI (urinary tract infection): Code(s): N39.0 - Urinary tract infection, site not specified Status: Acute Assessment and Plan: Rocephin Sensitivity and culture pending L (6) Schizophrenia: Code(s): F20.9 - Schizophrenia, unspecified Status: Acute Assessment and Plan: Continue Zyprexa Continue antipsychotics (7) HTN (hypertension): Code(s): I10 - Essential (primary) hypertension Status: Acute (8) PAF (paroxysmal atrial fibrillation): Code(s): I48.0 - Paroxysmal atrial fibrillation Status: Acute Assessment and Plan: on Amiodarone infusion, Xarelto Metoprolol on hold due to Bradycardia Echocardiogram pending cardiology following (9) Diabetes type 2, controlled: Code(s): E11.9 - Type 2 diabetes mellitus without complications Status: Acute Assessment and Plan: Patient does not appear to be on medications A.c. HS Low-dose SSI Plan DVT prophylaxis, on Xarelto Subjective Date/time seen: 03/03/25 15:09 Interval history: Comfortable at bedisde Review of Systems Review of Systems: ROS unobtainable: Yes unobtainable due to medical condition and unobtainable due to mental status Exam Narrative: General: well appearing, appears stated age. HEENT: normocephalic, atraumatic. Mucous membranes moist. EOMI, PERRLA, bilateral sclera anicteric, no conjunctival injection. Neck supple without JVD, lymphadenopathy, or bruit. Respiratory: clear to ascultation bilaterally. No rales/rhonic/wheezes. Cardiovascular: Regular rate and rhythm, normal S1-S2 upon ascultation. No murmurs, rubs, or clicks. PMI is nondisplaced, capillary refill less than 3 second. Abdomen: Soft, round, no pulsatile masses, nondistended and nontender. No rebound, no guarding. No CVA tenderness, no hepatosplenomegaly. Bowel sounds present to all four quadrants. No high pitch or tinkling sounds, resonant to percussion. Extremities: No cyanosis, clubbing, or edema present. Pulses are palpable 2/2. Active ROM to all four extremities. Neuro: Alert and orientated x 0. Patient did not know her own name. PERRLA. Cranial nerves 2-12 intact without focal deficit. Skin: Warm, dry, and intact, without rash, erythema, or lesion. Psych: pleasant, cooperative, normal speech, normal affect, no hallucinations, no dysarthia Objective Data Vital Signs Vital Signs: Vital Signs - 24 hr 03/02/25 15:43 03/02/25 18:06 03/02/25 19:20 Temperature 97.6 F Pulse Rate 43 L 44 L 43 L Pulse Rate [With Activity During Therapy Session] Respiratory Rate 16 15 18 Blood Pressure 120/42 L 128/74 137/39 L Pulse Oximetry 97 99 95 Oxygen Delivery Fraction of Inspired Oxygen 03/02/25 20:00 03/02/25 20:00 03/02/25 20:04 Temperature Pulse Rate 44 L 44 L 44 L Pulse Rate [With Activity During Therapy Session] Respiratory Rate 20 Blood Pressure Pulse Oximetry 97 Oxygen Delivery Room Air Fraction of Inspired Oxygen 21 03/02/25 22:00 03/02/25 22:21 03/02/25 23:48 Temperature Pulse Rate 54 L 48 L 44 L Pulse Rate [With Activity During Therapy Session] Respiratory Rate 20 20 Blood Pressure Pulse Oximetry 97 97 Oxygen Delivery Room Air Room Air Fraction of Inspired Oxygen 21 21 03/02/25 23:48 03/03/25 00:41 03/03/25 02:00 Temperature 97.7 F Pulse Rate 44 L 43 L 104 H Pulse Rate [With Activity During Therapy Session] Respiratory Rate 18 Blood Pressure 149/64 H Pulse Oximetry 95 Oxygen Delivery Fraction of Inspired Oxygen 03/03/25 03:35 03/03/25 03:35 03/03/25 03:46 Temperature 98.1 F Pulse Rate 110 H 118 H 107 H Pulse Rate [With Activity During Therapy Session] Respiratory Rate 18 16 Blood Pressure 149/75 H Pulse Oximetry 95 98 Oxygen Delivery Room Air Fraction of Inspired Oxygen 03/03/25 05:23 03/03/25 08:00 03/03/25 09:54 Temperature 97.7 F Pulse Rate 109 H 124 H Pulse Rate [With Activity During Therapy Session] 130 H Respiratory Rate 16 Blood Pressure 136/91 H Pulse Oximetry 100 Oxygen Delivery Room Air Fraction of Inspired Oxygen 03/03/25 10:00 03/03/25 10:23 03/03/25 10:47 Temperature Pulse Rate 117 H 98 102 H Pulse Rate [With Activity During Therapy Session] Respiratory Rate Blood Pressure 131/60 131/67 Pulse Oximetry Oxygen Delivery Fraction of Inspired Oxygen 03/03/25 10:51 03/03/25 10:51 03/03/25 11:30 Temperature Pulse Rate 106 H 106 H Pulse Rate [With Activity During Therapy Session] Respiratory Rate Blood Pressure Pulse Oximetry Oxygen Delivery Room Air Fraction of Inspired Oxygen 03/03/25 12:00 03/03/25 12:00 03/03/25 12:00 Temperature 98.8 F Pulse Rate 108 H 106 H 115 H Pulse Rate [With Activity During Therapy Session] Respiratory Rate 16 Blood Pressure 144/81 H Pulse Oximetry 99 Oxygen Delivery Fraction of Inspired Oxygen 03/03/25 12:00 03/03/25 14:00 03/03/25 14:00 Temperature 98.1 F Pulse Rate 115 H 112 H 115 H Pulse Rate [With Activity During Therapy Session] Respiratory Rate 16 Blood Pressure 110/63 Pulse Oximetry 99 Oxygen Delivery Fraction of Inspired Oxygen 03/03/25 14:00 03/03/25 14:43 Temperature Pulse Rate 106 H 98 Pulse Rate [With Activity During Therapy Session] Respiratory Rate Blood Pressure Pulse Oximetry Oxygen Delivery Fraction of Inspired Oxygen Intake/Output Intake/Output: Intake & Output 02/28/25 03/01/25 03/02/25 03/03/25 23:59 23:59 23:59 23:59 Intake Total 50 1561.5 Output Total 200 200 Balance -150 1361.5 Meds/Results Medications: Active Medications Generic Name Dose Route Start Last Admin Trade Name Freq PRN Reason Stop Dose Admin Acetaminophen 650 mg 03/02/25 14:08 03/02/25 20:19 Acetaminophen 325 Mg Tablet PO 650 mg Q4H PRN Administration Mild Pain (1-3) or Fever Hydrocodone Bitart/Acetaminophen 1 tab 03/02/25 14:08 03/02/25 15:44 Hydrocodone/Acetaminophen (*Crx) 5-325 Mg Tablet PO 1 tab Q4H PRN Administration Pain Rated 4-6 Bupropion HCl 150 mg 03/03/25 09:00 03/03/25 10:21 Bupropion Hcl Sr (12 Hr) 150 Mg Tab BY MOUTH 150 mg Q12HR SARITA Administration Buspirone HCl 10 mg 03/03/25 09:00 03/03/25 10:20 Buspirone Hcl 10 Mg Tablet PO 10 mg DAILY SARITA Administration Dextrose 12.5 gm 03/02/25 23:20 Dextrose 50% 25 Gm/50 Ml Syringe IV PUSH PRN PRN Hypoglycemia Protocol Docusate Sodium 100 mg 03/02/25 17:00 03/03/25 10:22 Docusate Sodium 100 Mg Capsule PO 100 mg BID SARITA Administration Glucagon 1 mg 03/02/25 23:20 Glucagon For Inj 1 Mg Vial IM PRN PRN Hypoglycemia Protocol Glucose 15 gm 03/02/25 23:20 Glucose Oral Gel 15 Gm Of Glucse In 37.5 Gm Tube PO PRN PRN Hypoglycemia Protocol Ceftriaxone Sodium 1 gm/ 50 mls @ 100 mls/hr 03/02/25 16:00 03/03/25 12:00 Sodium Chloride IVPB Infused Q24H SARITA Infusion Sodium Chloride 1,000 mls @ 75 mls/hr 03/02/25 15:00 03/03/25 14:43 Normal Saline Iv IV CONT 75 mls/hr .[id number] SARITA Infusion Dextrose 1,000 mls @ 100 mls/hr 03/02/25 23:20 Dextrose 5% 1,000 Ml IVPB PRN PRN Hypoglycemia Protocol Amiodarone HCl/Dextrose 360 mg in 200 mls @ 16.667 mls/hr 03/03/25 14:09 Nexterone 360 Mg/D5w 200 Ml IV CONT .Q12H SARITA 0.5 MG/MIN Insulin Aspart 2 - 5 units 03/03/25 08:00 03/03/25 14:51 Insulin Aspart (*Bkc) 100 Units/Ml SUB-Q Not Given TIDWM [facility] Protocol Melatonin 3 mg 03/02/25 23:16 Melatonin 3 Mg Tablet PO QHS PRN Insomnia Morphine Sulfate 2 mg 03/02/25 14:08 Morphine Sulfate (*Crx) 2 Mg/Ml Inj IV PUSH Q2H PRN Pain Rated 7-10 Olanzapine 15 mg 03/03/25 09:00 03/03/25 10:22 Olanzapine 5 Mg Tablet PO 15 mg DAILY SARITA Administration Ondansetron HCl 4 mg 03/02/25 14:08 Ondansetron Inj 4 Mg/2 Ml Vial IV PUSH Q4H PRN Nausea Pravastatin Sodium 10 mg 03/03/25 09:00 03/03/25 10:22 Pravastatin Sodium 10 Mg Tablet PO 10 mg DAILY SARITA Administration Sertraline HCl 100 mg 03/03/25 09:00 03/03/25 10:22 Sertraline Hcl 50 Mg Tablet PO 100 mg DAILY SARITA Administration Radiology Results: ITS Impressions Humerus X-Ray 03/02/25 09:16 Impression: Comminuted fracture the proximal humerus, predominantly involving the greater tuberosity and surgical neck, as detailed above. Shoulder X-Ray 03/02/25 09:19 Impression: Comminuted fracture of the proximal humerus, as detailed above. Head CT 03/02/25 10:57 IMPRESSION: No evidence for acute intracranial hemorrhage or calvarial fracture. Labs Labs: Laboratory Results - last 24 hr 03/02/25 03/02/25 03/03/25 15:26 20:21 05:07 WBC 6.7 RBC 2.55 L Hgb 7.7 L Hct 25.0 L MCV 98.0 MCH 30.2 MCHC 30.8 L RDW 13.9 Plt Count 118 L MPV 11.9 H Immature Gran % (Auto) 0.7 H Neut % (Auto) 76.3 H Lymph % (Auto) 12.0 L [place] % (Auto) 8.8 H Eos % (Auto) 1.9 Baso % (Auto) 0.3 Lymph # (Auto) 0.80 L [place] # (Auto) 0.6 Eos # (Auto) 0.1 Baso # (Auto) 0.0 Abs Immat Gran (auto) 0.05 H Absolute Neuts (auto) 5.1 Absolute Nucleated RBC 0.000 Nucleated RBC % 0.0 PT 18.3 H D INR 1.6 Sodium 141 Potassium 3.5 Chloride 108 H Carbon Dioxide 26 Anion Gap 7 BUN 15 Creatinine 0.71 Estim Creat Clear Calc 56 Estimated GFR > 60 Glucose 151 H POC Capillary Glucose 137 H Calcium 8.4 Iron 29 L TIBC 238 L % Saturation 12 L Vitamin B12 749.0 Folate 6.1 03/03/25 03/03/25 07:39 11:48 WBC RBC Hgb Hct MCV MCH MCHC RDW Plt Count MPV Immature Gran % (Auto) Neut % (Auto) Lymph % (Auto) [place] % (Auto) Eos % (Auto) Baso % (Auto) Lymph # (Auto) [place] # (Auto) Eos # (Auto) Baso # (Auto) Abs Immat Gran (auto) Absolute Neuts (auto) Absolute Nucleated RBC Nucleated RBC % PT INR Sodium Potassium Chloride Carbon Dioxide Anion Gap BUN Creatinine Estim Creat Clear Calc Estimated GFR Glucose POC Capillary Glucose 122 H 133 H Calcium Iron TIBC % Saturation Vitamin B12 Folate
[2025-03-03] MEDS: cefTRIAXone 1 GM in SODIUM CHLORIDE 0.9% IV 50 ML 100 ML IVPB (17:49)
[2025-03-03] MEDS: RIVAROXABAN 20 MG TABLET PO (17:50)
[2025-03-03] MEDS: ACETAMINOPHEN 325 MG TABLET 650 MG PO (20:21)
[2025-03-03] MEDS: MELATONIN 3 MG TABLET PO (23:54)
[2025-03-04] VITALS (22 sets, daily range): BP systolic 117–151; BP diastolic 45–86; PULSE 77–121; RESP 14–20; TEMP 36.5–37.3; O2SAT 95–100
[2025-03-04 04:29] LABS: Hematocrit 24.3 % (37.0-47.0); Hemoglobin 7.5 g/dL (12.0-15.0); Immature Granulocyte Percent A 0.8 % (0-0.5); Lymphocytes Absolute Auto 0.89 K/mm3 (0.9-3.2); Mean Corpuscular HGB Conc 30.9 g/dl (32-36); Mean Corpuscular Hemoglobin 30.2 pg (26-34); Mean Corpuscular Volume 98.0 fl (80-100); Nucleated Red Blood Cells Absolute Auto 0.000 K/mm3 (0.0-0.012); Nucleated Red Blood Cells Perc 0.0 % (0.0-0.2); Platelet Count Result 120 k/mm3 (150-375); Red Blood Count 2.48 M/mm3 (4.2-5.4); White Blood Count 5.2 K/mm3 (4.5-10.0)
[2025-03-04 04:38] LABS: Alanine Aminotransferase 14 U/L (6-35); Albumin Level 2.6 g/dL (3.5-5.1); Alkaline Phosphatase 58 U/L (38-126); Anion Gap 5 mmol/L (4-12); Aspartate Amino Transferase 24 U/L (14-36); Bilirubin,Total 0.3 mg/dL (0.2-1.3); Blood Urea Nitrogen 6 mg/dL (7-17); Calcium 7.7 mg/dL (8.4-10.2); Carbon Dioxide 24 mmol/L (22-30); Chloride 108 mmol/L (98-107); Estimated CRCL calculation 65 ml/min; Estimated Glomerular Filt Rate > 60; Glucose 122 mg/dL (65-110); Magnesium 1.8 mg/dL (1.6-2.3); Potassium 3.2 mmol/L (3.4-5.0); Sodium 137 mmol/L (137-145); Total Protein 5.3 g/dL (6.3-8.2)
[2025-03-04 04:43] LABS: INR 2.6; Prothrombin Time 27.1 Seconds (11.1-14.7)
[2025-03-04 04:44] LABS: Partial Thromboplastin Time 49.4 Seconds (22.3-36.8)
[2025-03-04] MEDS: SODIUM CHLORIDE 0.9% IV 1,000 ML 75 ML IV CONT ×2 (04:45→18:02)
[2025-03-04 05:12] LABS: Thyroid Stimulating Hormone 2.370 uIU/mL (0.465-4.680)
--- NOTE | 2025-03-04 07:24 | PM.PNCARD ---
Progress Note: A&P Assessment and Plan (1) PAF (paroxysmal atrial fibrillation): Code(s): I48.0 - Paroxysmal atrial fibrillation Status: Acute Assessment and Plan: In rapid atrial fib. [id number] 4. On Xarelto. Started 03/03/25 Amiodarone drip to cardiovert to maintain sinus rhythm without Metoprolol so she won't be bradycardic. She could have tachy-heather syndrome. After 24 hours of Amiodarone drip, change Amiodarone 200 mg BID. If HR is controlled on Amiodarone or cardioverts to sinus rhythm, no further cardiac workup is needed. Upon discharge have her f/u with me in 1-2 weeks. (2) Bradycardia: Code(s): R00.1 - Bradycardia, unspecified Status: Acute Assessment and Plan: Due to Metoprolol. Stopped Metoprolol. Monitor HR. (3) Tobacco abuse: Code(s): Z72.0 - Tobacco use Status: Acute Assessment and Plan: Counseled regarding smoking cessation. (4) HTN (hypertension): Code(s): I10 - Essential (primary) hypertension Status: Acute Assessment and Plan: Stable. (5) Dyslipidemia: Code(s): E78.5 - Hyperlipidemia, unspecified Status: Acute Assessment and Plan: On Pravastatin. Subjective Date/time seen: 03/04/25 07:24 Interval history: Patient is sleepy but arousable. Denies chest pain or sob or dizziness. Exam Const: General: other (Sleepy) Orientation/consciousness: oriented to person, oriented to place and oriented to time Resp: Auscultation: clear to auscultation bilaterally, no crackles, no rales, no rhonchi and no wheezes Cardio: Rate: regular rate Rhythm: abnormal rhythm Heart sounds: no murmurs Peripheral pulses: dorsalis pedis present Neuro: General: oriented to person, oriented to place and oriented to time Extrem: Right lower extremity: no edema Left lower extremity: no edema Objective Data Vital Signs Vital Signs: Vital Signs - 24 hr 03/03/25 08:00 03/03/25 09:54 03/03/25 10:00 Temperature 97.7 F Pulse Rate 124 H 117 H Pulse Rate [With Activity During Therapy Session] 130 H Respiratory Rate 16 Blood Pressure 136/91 H Pulse Oximetry 100 Oxygen Delivery Room Air 03/03/25 10:23 03/03/25 10:47 03/03/25 10:51 Temperature Pulse Rate 98 102 H 106 H Pulse Rate [With Activity During Therapy Session] Respiratory Rate Blood Pressure 131/60 131/67 Pulse Oximetry Oxygen Delivery 03/03/25 10:51 03/03/25 11:30 03/03/25 12:00 Temperature 98.8 F Pulse Rate 106 H 108 H Pulse Rate [With Activity During Therapy Session] Respiratory Rate 16 Blood Pressure 144/81 H Pulse Oximetry 99 Oxygen Delivery Room Air 03/03/25 12:00 03/03/25 12:00 03/03/25 12:00 Temperature Pulse Rate 106 H 115 H 115 H Pulse Rate [With Activity During Therapy Session] Respiratory Rate Blood Pressure Pulse Oximetry Oxygen Delivery 03/03/25 14:00 03/03/25 14:00 03/03/25 14:00 Temperature 98.1 F Pulse Rate 112 H 115 H 106 H Pulse Rate [With Activity During Therapy Session] Respiratory Rate 16 Blood Pressure 110/63 Pulse Oximetry 99 Oxygen Delivery 03/03/25 14:43 03/03/25 16:00 03/03/25 16:00 Temperature 99.2 F Pulse Rate 98 80 113 H Pulse Rate [With Activity During Therapy Session] Respiratory Rate 20 Blood Pressure 122/73 Pulse Oximetry 99 Oxygen Delivery 03/03/25 16:49 03/03/25 18:00 03/03/25 18:03 Temperature 100.5 F H Pulse Rate 117 H 99 118 H Pulse Rate [With Activity During Therapy Session] Respiratory Rate 24 H Blood Pressure 140/67 165/89 H Pulse Oximetry 97 Oxygen Delivery 03/03/25 19:41 03/03/25 20:00 03/03/25 20:00 Temperature 98.4 F Pulse Rate 125 H 125 H Pulse Rate [With Activity During Therapy Session] Respiratory Rate 20 Blood Pressure 116/53 L 116/53 L Pulse Oximetry 95 Oxygen Delivery Room Air 03/03/25 20:00 03/03/25 21:11 03/03/25 22:00 Temperature Pulse Rate 113 H 113 H Pulse Rate [With Activity During Therapy Session] Respiratory Rate Blood Pressure 124/62 Pulse Oximetry 93 Oxygen Delivery Room Air 03/03/25 22:00 03/03/25 22:00 03/03/25 23:54 Temperature 98.4 F Pulse Rate 113 H 117 H 104 H Pulse Rate [With Activity During Therapy Session] Respiratory Rate 20 Blood Pressure 124/62 125/77 Pulse Oximetry 100 Oxygen Delivery 03/04/25 00:00 03/04/25 00:00 03/04/25 00:00 Temperature Pulse Rate 104 H 108 H Pulse Rate [With Activity During Therapy Session] Respiratory Rate Blood Pressure 125/77 Pulse Oximetry Oxygen Delivery Room Air 03/04/25 02:00 03/04/25 02:00 03/04/25 02:07 Temperature Pulse Rate 94 94 94 Pulse Rate [With Activity During Therapy Session] Respiratory Rate Blood Pressure 134/59 L 134/59 L Pulse Oximetry Oxygen Delivery 03/04/25 03:13 03/04/25 04:00 03/04/25 04:00 Temperature 98.7 F Pulse Rate 108 H 108 H Pulse Rate [With Activity During Therapy Session] Respiratory Rate 18 Blood Pressure 117/65 117/65 Pulse Oximetry 99 Oxygen Delivery Room Air 03/04/25 04:00 03/04/25 04:46 03/04/25 04:46 Temperature Pulse Rate 99 98 98 Pulse Rate [With Activity During Therapy Session] Respiratory Rate Blood Pressure 117/45 L Pulse Oximetry Oxygen Delivery 03/04/25 06:00 03/04/25 06:00 03/04/25 06:00 Temperature Pulse Rate 94 96 99 Pulse Rate [With Activity During Therapy Session] Respiratory Rate Blood Pressure 145/56 H 145/66 H Pulse Oximetry Oxygen Delivery Intake/Output Intake/Output: Intake & Output 03/01/25 03/02/25 03/03/25 03/04/25 23:59 23:59 23:59 23:59 Intake Total 50 1647.9 383.4 Output Total 200 200 700 Balance -150 1447.9 -316.6 Meds/Results Medications: Active Medications Generic Name Dose Route Start Last Admin Trade Name Freq PRN Reason Stop Dose Admin Acetaminophen 650 mg 03/02/25 14:08 03/03/25 20:21 Acetaminophen 325 Mg Tablet PO 650 mg Q4H PRN Administration Mild Pain (1-3) or Fever Hydrocodone Bitart/Acetaminophen 1 tab 03/02/25 14:08 03/02/25 15:44 Hydrocodone/Acetaminophen (*Crx) 5-325 Mg Tablet PO 1 tab Q4H PRN Administration Pain Rated 4-6 Bupropion HCl 150 mg 03/03/25 09:00 03/03/25 20:21 Bupropion Hcl Sr (12 Hr) 150 Mg Tab BY MOUTH 150 mg Q12HR SARITA Administration Buspirone HCl 10 mg 03/03/25 09:00 03/03/25 10:20 Buspirone Hcl 10 Mg Tablet PO 10 mg DAILY SARITA Administration Dextrose 12.5 gm 03/02/25 23:20 Dextrose 50% 25 Gm/50 Ml Syringe IV PUSH PRN PRN Hypoglycemia Protocol Docusate Sodium 100 mg 03/02/25 17:00 03/03/25 17:50 Docusate Sodium 100 Mg Capsule PO 100 mg BID SARITA Administration Glucagon 1 mg 03/02/25 23:20 Glucagon For Inj 1 Mg Vial IM PRN PRN Hypoglycemia Protocol Glucose 15 gm 03/02/25 23:20 Glucose Oral Gel 15 Gm Of Glucse In 37.5 Gm Tube PO PRN PRN Hypoglycemia Protocol Ceftriaxone Sodium 1 gm/ 50 mls @ 100 mls/hr 03/02/25 16:00 03/03/25 17:49 Sodium Chloride IVPB 100 mls/hr Q24H SARITA Administration Sodium Chloride 1,000 mls @ 75 mls/hr 03/02/25 15:00 03/04/25 04:45 Normal Saline Iv IV CONT 75 mls/hr .[id number] SARITA Administration Dextrose 1,000 mls @ 100 mls/hr 03/02/25 23:20 Dextrose 5% 1,000 Ml IVPB PRN PRN Hypoglycemia Protocol Amiodarone HCl/Dextrose 360 mg in 200 mls @ 16.667 mls/hr 03/03/25 14:09 03/04/25 06:00 Nexterone 360 Mg/D5w 200 Ml IV CONT 0.5 mg/min .Q12H SARITA 16.67 mls/hr Infusion 0.5 MG/MIN Insulin Aspart 2 - 5 units 03/03/25 08:00 03/03/25 16:54 Insulin Aspart (*Bkc) 100 Units/Ml SUB-Q Not Given TIDWM SARITA Protocol Melatonin 3 mg 03/02/25 23:16 03/03/25 23:54 Melatonin 3 Mg Tablet PO 3 mg QHS PRN Administration Insomnia Morphine Sulfate 2 mg 03/02/25 14:08 Morphine Sulfate (*Crx) 2 Mg/Ml Inj IV PUSH Q2H PRN Pain Rated 7-10 Olanzapine 15 mg 03/03/25 09:00 03/03/25 10:22 Olanzapine 5 Mg Tablet PO 15 mg DAILY SARITA Administration Ondansetron HCl 4 mg 03/02/25 14:08 Ondansetron Inj 4 Mg/2 Ml Vial IV PUSH Q4H PRN Nausea Pravastatin Sodium 10 mg 03/03/25 09:00 03/03/25 10:22 Pravastatin Sodium 10 Mg Tablet PO 10 mg DAILY SARITA Administration Rivaroxaban 20 mg 03/03/25 18:00 03/03/25 17:50 Rivaroxaban 20 Mg Tablet PO 20 mg QPM SARITA Administration Sertraline HCl 100 mg 03/03/25 09:00 03/03/25 10:22 Sertraline Hcl 50 Mg Tablet PO 100 mg DAILY SARITA Administration Radiology Results: ITS Impressions Humerus X-Ray 03/02/25 09:16 Impression: Comminuted fracture the proximal humerus, predominantly involving the greater tuberosity and surgical neck, as detailed above. Shoulder X-Ray 03/02/25 09:19 Impression: Comminuted fracture of the proximal humerus, as detailed above. Head CT 03/02/25 10:57 IMPRESSION: No evidence for acute intracranial hemorrhage or calvarial fracture. Labs Labs: Laboratory Results - last 24 hr 03/03/25 03/03/25 03/03/25 07:39 11:48 15:56 WBC RBC Hgb Hct MCV MCH MCHC RDW Plt Count MPV Immature Gran % (Auto) Neut % (Auto) Lymph % (Auto) [place] % (Auto) Eos % (Auto) Baso % (Auto) Lymph # (Auto) [place] # (Auto) Eos # (Auto) Baso # (Auto) Abs Immat Gran (auto) Absolute Neuts (auto) Absolute Nucleated RBC Nucleated RBC % PT INR APTT Sodium Potassium Chloride Carbon Dioxide Anion Gap BUN Creatinine Estim Creat Clear Calc Estimated GFR Glucose POC Capillary Glucose 122 H 133 H 140 H Calcium Magnesium Total Bilirubin AST ALT Alkaline Phosphatase Total Protein Albumin TSH 03/03/25 03/04/25 20:08 04:08 WBC 5.2 RBC 2.48 L Hgb 7.5 L Hct 24.3 L MCV 98.0 MCH 30.2 MCHC 30.9 L RDW 13.8 Plt Count 120 L MPV 11.4 H Immature Gran % (Auto) 0.8 H Neut % (Auto) 69.3 Lymph % (Auto) 17.3 L [place] % (Auto) 9.5 H Eos % (Auto) 2.7 Baso % (Auto) 0.4 Lymph # (Auto) 0.89 L [place] # (Auto) 0.5 Eos # (Auto) 0.1 Baso # (Auto) 0.0 Abs Immat Gran (auto) 0.04 H Absolute Neuts (auto) 3.6 Absolute Nucleated RBC 0.000 Nucleated RBC % 0.0 PT 27.1 H D INR 2.6 APTT 49.4 H Sodium 137 Potassium 3.2 L Chloride 108 H Carbon Dioxide 24 Anion Gap 5 BUN 6 L D Creatinine 0.58 L Estim Creat Clear Calc 65 Estimated GFR > 60 Glucose 122 H POC Capillary Glucose 132 H Calcium 7.7 L Magnesium 1.8 Total Bilirubin 0.3 AST 24 ALT 14 Alkaline Phosphatase 58 Total Protein 5.3 L Albumin 2.6 L TSH 2.370
--- NOTE | 2025-03-04 07:54 | ECG_ITS ---
Test Date: 2025-03-04 11:02:54 Measurements Intervals [place] Rate: 105 P: 0 [place]: 0 QRS: -31 QRSD: 101 T: 161 QT: 382 QTc: 507 Interpretive Statements ATRIAL FIBRILLATION WITH RAPID VENTRICULAR RESPONSE LEFTWARD AXIS ST DEVIATION AND T-WAVE ABNORMALITY, CONSIDER ISCHEMIA Electronically Signed On 03-04-2025 11:11:12 CDT by Georges Marcano D.O
[2025-03-04] MEDS: AMIODARONE HCL 200 MG TABLET PO ×2 (08:52→21:09)
[2025-03-04] MEDS: DOCUSATE SODIUM 100 MG CAPSULE PO ×2 (08:53→18:03)
[2025-03-04] MEDS: buPROPion HCL SR (12 HR) 150 MG TAB BY MOUTH ×2 (08:53→21:09)
[2025-03-04] MEDS: SERTRALINE HCL 50 MG TABLET 100 MG PO (08:54)
[2025-03-04] MEDS: PRAVASTATIN SODIUM 10 MG TABLET PO (08:54)
[2025-03-04] MEDS: cefTRIAXone 1 GM in SODIUM CHLORIDE 0.9% IV 50 ML 100 ML IVPB (16:43)
--- NOTE | 2025-03-04 17:46 | P.PNIM_ITS ---
Progress Note: A&P Assessment and Plan (1) Bradycardia: Code(s): R00.1 - Bradycardia, unspecified Status: Acute Assessment and Plan: Cardiology consulted recommendations of stopping metoprolol and monitoring ov ernight Cardiology following monitor (2) Right humeral fracture: Code(s): S42.301A - Unspecified fracture of shaft of humerus, right arm, initial encounter for closed fracture Status: Acute Assessment and Plan: After fall Non op management Pain control Continue immobilizer (3) Anemia: Code(s): D64.9 - Anemia, unspecified Status: Acute Assessment and Plan: with iron deficiency iron sat 12 started on IV iron 1000/1000 mg (4) Supratherapeutic INR: Code(s): R79.1 - Abnormal coagulation profile Status: Acute Assessment and Plan: INR 2.6 uncorelated with anticoagulation effect of Xarelto INR in the a.m. (5) UTI (urinary tract infection): Code(s): N39.0 - Urinary tract infection, site not specified Status: Acute Assessment and Plan: Rocephin Sensitivity and culture pending (6) Schizophrenia: Code(s): F20.9 - Schizophrenia, unspecified Status: Acute Assessment and Plan: Continue Zyprexa Continue antipsychotics (7) HTN (hypertension): Code(s): I10 - Essential (primary) hypertension Status: Acute (8) PAF (paroxysmal atrial fibrillation): Code(s): I48.0 - Paroxysmal atrial fibrillation Status: Acute Assessment and Plan: S/p Amiodarone infusion Contineu PO Amio 200mg bid adn Xarelto Metoprolol on hold due to Bradycardia Echocardiogram EF 55-60% cardiology following (9) Diabetes type 2, controlled: Code(s): E11.9 - Type 2 diabetes mellitus without complications Status: Acute Assessment and Plan: Patient does not appear to be on medications A.c. HS Low-dose SSI Plan DVT prophylaxis, on Xarelto Subjective Date/time seen: 03/04/25 17:46 Interval history: Comfortable at bedside Review of Systems Review of Systems: ROS unobtainable: Yes unobtainable due to medical condition and unobtainable due to mental status Exam Narrative: General: well appearing, appears stated age. HEENT: normocephalic, atraumatic. Mucous membranes moist. EOMI, PERRLA, bilateral sclera anicteric, no conjunctival injection. Neck supple without JVD, lymphadenopathy, or bruit. Respiratory: clear to ascultation bilaterally. No rales/rhonic/wheezes. Cardiovascular: Regular rate and rhythm, normal S1-S2 upon ascultation. No murmurs, rubs, or clicks. PMI is nondisplaced, capillary refill less than 3 second. Abdomen: Soft, round, no pulsatile masses, nondistended and nontender. No rebound, no guarding. No CVA tenderness, no hepatosplenomegaly. Bowel sounds present to all four quadrants. No high pitch or tinkling sounds, resonant to percussion. Extremities: No cyanosis, clubbing, or edema present. Pulses are palpable 2/2. Active ROM to all four extremities. Neuro: Alert and orientated x 0. Patient did not know her own name. PERRLA. Cranial nerves 2-12 intact without focal deficit. Skin: Warm, dry, and intact, without rash, erythema, or lesion. Psych: pleasant, cooperative, normal speech, normal affect, no hallucinations, no dysarthia Objective Data Vital Signs Vital Signs: Vital Signs - 24 hr 03/03/25 18:00 03/03/25 18:03 03/03/25 19:41 Temperature 100.5 F H 98.4 F Pulse Rate 99 118 H 125 H Respiratory Rate 24 H 20 Blood Pressure 165/89 H 116/53 L Pulse Oximetry 97 95 Oxygen Delivery 03/03/25 20:00 03/03/25 20:00 03/03/25 20:00 Temperature Pulse Rate 125 H 113 H Respiratory Rate Blood Pressure 116/53 L Pulse Oximetry Oxygen Delivery Room Air 03/03/25 21:11 03/03/25 22:00 03/03/25 22:00 Temperature Pulse Rate 113 H 113 H Respiratory Rate Blood Pressure 124/62 124/62 Pulse Oximetry 93 Oxygen Delivery Room Air 03/03/25 22:00 03/03/25 23:54 03/04/25 00:00 Temperature 98.4 F Pulse Rate 117 H 104 H 104 H Respiratory Rate 20 Blood Pressure 125/77 125/77 Pulse Oximetry 100 Oxygen Delivery 03/04/25 00:00 03/04/25 00:00 03/04/25 02:00 Temperature Pulse Rate 108 H 94 Respiratory Rate Blood Pressure 134/59 L Pulse Oximetry Oxygen Delivery Room Air 03/04/25 02:00 03/04/25 02:07 03/04/25 03:13 Temperature 98.7 F Pulse Rate 94 94 108 H Respiratory Rate 18 Blood Pressure 134/59 L 117/65 Pulse Oximetry 99 Oxygen Delivery 03/04/25 04:00 03/04/25 04:00 03/04/25 04:00 Temperature Pulse Rate 108 H 99 Respiratory Rate Blood Pressure 117/65 Pulse Oximetry Oxygen Delivery Room Air 03/04/25 04:46 03/04/25 04:46 03/04/25 06:00 Temperature Pulse Rate 98 98 94 Respiratory Rate Blood Pressure 117/45 L Pulse Oximetry Oxygen Delivery 03/04/25 06:00 03/04/25 06:00 03/04/25 08:00 Temperature 98.8 F Pulse Rate 96 99 77 Respiratory Rate 14 Blood Pressure 145/56 H 145/66 H 128/73 Pulse Oximetry 95 Oxygen Delivery 03/04/25 08:00 03/04/25 08:52 03/04/25 10:00 Temperature Pulse Rate 101 H 105 H 91 Respiratory Rate Blood Pressure 128/73 131/74 Pulse Oximetry 100 Oxygen Delivery 03/04/25 11:54 03/04/25 14:00 03/04/25 15:05 Temperature 97.7 F Pulse Rate 89 111 H 104 H Respiratory Rate 18 Blood Pressure 135/72 151/86 H 131/74 Pulse Oximetry 100 100 Oxygen Delivery 03/04/25 15:36 Temperature 98.0 F Pulse Rate 108 H Respiratory Rate 16 Blood Pressure 129/74 Pulse Oximetry 98 Oxygen Delivery Intake/Output Intake/Output: Intake & Output 03/01/25 03/02/25 03/03/25 03/04/25 23:59 23:59 23:59 23:59 Intake Total 50 1697.9 1474.8 Output Total 762 338 8452 Balance -150 1497.9 -25.2 Meds/Results Medications: Active Medications Generic Name Dose Route Start Last Admin Trade Name Freq PRN Reason Stop Dose Admin Acetaminophen 650 mg 03/02/25 14:08 03/03/25 20:21 Acetaminophen 325 Mg Tablet PO 650 mg Q4H PRN Administration Mild Pain (1-3) or Fever Hydrocodone Bitart/Acetaminophen 1 tab 03/02/25 14:08 03/02/25 15:44 Hydrocodone/Acetaminophen (*Crx) 5-325 Mg Tablet PO 1 tab Q4H PRN Administration Pain Rated 4-6 Amiodarone HCl 200 mg 03/04/25 09:00 03/04/25 08:52 Amiodarone Hcl 200 Mg Tablet PO 200 mg Q12HR SARITA Administration Bupropion HCl 150 mg 03/03/25 09:00 03/04/25 08:53 Bupropion Hcl Sr (12 Hr) 150 Mg Tab BY MOUTH 150 mg Q12HR SARITA Administration Buspirone HCl 10 mg 03/03/25 09:00 03/04/25 08:53 Buspirone Hcl 10 Mg Tablet PO 10 mg DAILY SARITA Administration Dextrose 12.5 gm 03/02/25 23:20 Dextrose 50% 25 Gm/50 Ml Syringe IV PUSH PRN PRN Hypoglycemia Protocol Docusate Sodium 100 mg 03/02/25 17:00 03/04/25 16:44 Docusate Sodium 100 Mg Capsule PO Not Given BID SARITA Glucagon 1 mg 03/02/25 23:20 Glucagon For Inj 1 Mg Vial IM PRN PRN Hypoglycemia Protocol Glucose 15 gm 03/02/25 23:20 Glucose Oral Gel 15 Gm Of Glucse In 37.5 Gm Tube PO PRN PRN Hypoglycemia Protocol Ceftriaxone Sodium 1 gm/ 50 mls @ 100 mls/hr 03/02/25 16:00 03/04/25 16:43 Sodium Chloride IVPB 100 mls/hr Q24H SARITA Administration Sodium Chloride 1,000 mls @ 75 mls/hr 03/02/25 15:00 03/04/25 04:45 Normal Saline Iv IV CONT 75 mls/hr .[id number] SARITA Administration Dextrose 1,000 mls @ 100 mls/hr 03/02/25 23:20 Dextrose 5% 1,000 Ml IVPB PRN PRN Hypoglycemia Protocol Insulin Aspart 2 - 5 units 03/03/25 08:00 03/04/25 16:45 Insulin Aspart (*Bkc) 100 Units/Ml SUB-Q Not Given TIDWM SARITA Protocol Melatonin 3 mg 03/02/25 23:16 03/03/25 23:54 Melatonin 3 Mg Tablet PO 3 mg QHS PRN Administration Insomnia Morphine Sulfate 2 mg 03/02/25 14:08 Morphine Sulfate (*Crx) 2 Mg/Ml Inj IV PUSH Q2H PRN Pain Rated 7-10 Olanzapine 15 mg 03/03/25 09:00 03/04/25 08:53 Olanzapine 5 Mg Tablet PO 15 mg DAILY SARITA Administration Ondansetron HCl 4 mg 03/02/25 14:08 Ondansetron Inj 4 Mg/2 Ml Vial IV PUSH Q4H PRN Nausea Pravastatin Sodium 10 mg 03/03/25 09:00 03/04/25 08:54 Pravastatin Sodium 10 Mg Tablet PO 10 mg DAILY SARITA Administration Rivaroxaban 20 mg 03/03/25 18:00 03/03/25 17:50 Rivaroxaban 20 Mg Tablet PO 20 mg QPM SARITA Administration Sertraline HCl 100 mg 03/03/25 09:00 03/04/25 08:54 Sertraline Hcl 50 Mg Tablet PO 100 mg DAILY SARITA Administration Radiology Results: ITS Impressions Humerus X-Ray 03/02/25 09:16 Impression: Comminuted fracture the proximal humerus, predominantly involving the greater tuberosity and surgical neck, as detailed above. Shoulder X-Ray 03/02/25 09:19 Impression: Comminuted fracture of the proximal humerus, as detailed above. Head CT 03/02/25 10:57 IMPRESSION: No evidence for acute intracranial hemorrhage or calvarial fracture. Labs Labs: Laboratory Results - last 24 hr 03/03/25 03/04/25 03/04/25 20:08 04:08 08:38 WBC 5.2 RBC 2.48 L Hgb 7.5 L Hct 24.3 L MCV 98.0 MCH 30.2 MCHC 30.9 L RDW 13.8 Plt Count 120 L MPV 11.4 H Immature Gran % (Auto) 0.8 H Neut % (Auto) 69.3 Lymph % (Auto) 17.3 L [place] % (Auto) 9.5 H Eos % (Auto) 2.7 Baso % (Auto) 0.4 Lymph # (Auto) 0.89 L [place] # (Auto) 0.5 Eos # (Auto) 0.1 Baso # (Auto) 0.0 Abs Immat Gran (auto) 0.04 H Absolute Neuts (auto) 3.6 Absolute Nucleated RBC 0.000 Nucleated RBC % 0.0 PT 27.1 H D INR 2.6 APTT 49.4 H Sodium 137 Potassium 3.2 L Chloride 108 H Carbon Dioxide 24 Anion Gap 5 BUN 6 L D Creatinine 0.58 L Estim Creat Clear Calc 65 Estimated GFR > 60 Glucose 122 H POC Capillary Glucose 132 H 139 H Calcium 7.7 L Magnesium 1.8 Total Bilirubin 0.3 AST 24 ALT 14 Alkaline Phosphatase 58 Total Protein 5.3 L Albumin 2.6 L TSH 2.370 03/04/25 03/04/25 11:21 16:12 WBC RBC Hgb Hct MCV MCH MCHC RDW Plt Count MPV Immature Gran % (Auto) Neut % (Auto) Lymph % (Auto) [place] % (Auto) Eos % (Auto) Baso % (Auto) Lymph # (Auto) [place] # (Auto) Eos # (Auto) Baso # (Auto) Abs Immat Gran (auto) Absolute Neuts (auto) Absolute Nucleated RBC Nucleated RBC % PT INR APTT Sodium Potassium Chloride Carbon Dioxide Anion Gap BUN Creatinine Estim Creat Clear Calc Estimated GFR Glucose POC Capillary Glucose 116 H 151 H Calcium Magnesium Total Bilirubin AST ALT Alkaline Phosphatase Total Protein Albumin TSH
[2025-03-04] MEDS: RIVAROXABAN 20 MG TABLET PO (18:03)
[2025-03-04] MEDS: MELATONIN 3 MG TABLET PO (21:09)
[2025-03-04] MEDS: ACETAMINOPHEN 325 MG TABLET 650 MG PO (21:09)
[2025-03-04] MEDS: IRON SUCROSE COMPLEX 400 MG, IRON SUCROSE COMPLEX 100 MG in SODIUM CHLORIDE 0.9% IV 250 ML 78.57 MG IVPB (21:10)
[2025-03-05] VITALS (17 sets, daily range): BP systolic 141–187; BP diastolic 72–83; PULSE 87–124; RESP 15–20; TEMP 36.4–37.2; O2SAT 93–100
--- NOTE | 2025-03-05 08:17 | ECG_ITS ---
Test Date: 2025-03-05 11:06:11 Measurements Intervals [place] Rate: 97 P: 0 [place]: 0 QRS: 215 QRSD: 102 T: 240 QT: 394 QTc: 502 Interpretive Statements ATRIAL FIBRILLATION POSSIBLE RIGHT VENTRICULAR HYPERTROPHY [SOME/ALL OF: PROMINENT R IN V1, LATE TRANSITION, RAD, ZENOBIA, SSS] NONSPECIFIC ST AND T-WAVE ABNORMALITY LEAD MISPLACEMENT ABNORMAL ECG Electronically Signed On 03-05-2025 12:49:26 CDT by Lex Herrera M.D.
--- NOTE | 2025-03-05 08:34 | PM.PNCARD ---
Progress Note: A&P Assessment and Plan (1) PAF (paroxysmal atrial fibrillation): Code(s): I48.0 - Paroxysmal atrial fibrillation Status: Acute Assessment and Plan: In rapid atrial fib. [id number] 4. On Xarelto. Started 03/03/25 Amiodarone drip then changed to PO to cardiovert to maintain sinus rhythm. She could have tachy-heather syndrome. On Amiodarone 200 mg BID. If HR is controlled on Amiodarone with added Metoprolol or cardioverts to sinus rhythm she may stay on this regimen. Start low dose Metoprolol Tartate 12.5 mg BID to improve HR control while in atrial fibrillation but not too slow if she cardioverts to sinus rhythm. Upon discharge have her f/u with me in 1-2 weeks. (2) Bradycardia: Code(s): R00.1 - Bradycardia, unspecified Status: Acute Assessment and Plan: Stable. Due to Metoprolol 75 mg BID when in sinus rhythm. Now starting low dose Metoprolol 12.5 mg BID for rate control. (3) Tobacco abuse: Code(s): Z72.0 - Tobacco use Status: Acute Assessment and Plan: Counseled regarding smoking cessation. (4) HTN (hypertension): Code(s): I10 - Essential (primary) hypertension Status: Acute Assessment and Plan: Stable. (5) Dyslipidemia: Code(s): E78.5 - Hyperlipidemia, unspecified Status: Acute Assessment and Plan: On Pravastatin. Subjective Date/time seen: 03/05/25 08:34 Interval history: Denies chest pain or sob or dizziness. Exam Const: General: cooperative, healthy appearing, comfortable and other (Sleepy) Orientation/consciousness: oriented to person, oriented to place and oriented to time Resp: Auscultation: clear to auscultation bilaterally, no crackles, no rales, no rhonchi and no wheezes Cardio: Rate: tachycardic Rhythm: abnormal rhythm Heart sounds: no murmurs Peripheral pulses: dorsalis pedis present Neuro: General: oriented to person, oriented to place and oriented to time Extrem: Right lower extremity: no edema Left lower extremity: no edema Objective Data Vital Signs Vital Signs: Vital Signs - 24 hr 03/04/25 08:52 03/04/25 10:00 03/04/25 10:00 Temperature Pulse Rate 105 H 91 110 H Respiratory Rate Blood Pressure 131/74 Pulse Oximetry 100 Oxygen Delivery 03/04/25 11:54 03/04/25 12:00 03/04/25 14:00 Temperature 97.7 F Pulse Rate 89 112 H 111 H Respiratory Rate 18 Blood Pressure 135/72 151/86 H Pulse Oximetry 100 100 Oxygen Delivery 03/04/25 14:00 03/04/25 15:05 03/04/25 15:36 Temperature 98.0 F Pulse Rate 108 H 104 H 108 H Respiratory Rate 16 Blood Pressure 131/74 129/74 Pulse Oximetry 98 Oxygen Delivery 03/04/25 16:00 03/04/25 18:00 03/04/25 19:53 Temperature 99.1 F Pulse Rate 114 H 114 H 106 H Respiratory Rate 20 Blood Pressure 141/79 H Pulse Oximetry 100 Oxygen Delivery 03/04/25 20:00 03/04/25 20:00 03/04/25 21:09 Temperature Pulse Rate 106 H 100 121 H Respiratory Rate Blood Pressure Pulse Oximetry Oxygen Delivery Room Air 03/04/25 22:00 03/04/25 23:53 03/05/25 00:00 Temperature 98.1 F Pulse Rate 109 H 97 107 H Respiratory Rate 20 Blood Pressure 151/68 H Pulse Oximetry 99 Oxygen Delivery Room Air 03/05/25 00:00 03/05/25 02:00 03/05/25 04:00 Temperature 98.4 F Pulse Rate 110 H 108 H 115 H Respiratory Rate 18 Blood Pressure 151/80 H Pulse Oximetry 98 Oxygen Delivery 03/05/25 04:00 03/05/25 04:28 03/05/25 06:00 Temperature Pulse Rate 112 H 98 108 H Respiratory Rate Blood Pressure Pulse Oximetry Oxygen Delivery Room Air Intake/Output Intake/Output: Intake & Output 03/02/25 03/03/25 03/04/25 03/05/25 23:59 23:59 23:59 23:59 Intake Total 50 1697.9 2711.0 497 Output Total 969 123 2041 700 Balance -150 1497.9 1211.0 -203 Meds/Results Medications: Active Medications Generic Name Dose Route Start Last Admin Trade Name Freq PRN Reason Stop Dose Admin Acetaminophen 650 mg 03/02/25 14:08 03/04/25 21:09 Acetaminophen 325 Mg Tablet PO 650 mg Q4H PRN Administration Mild Pain (1-3) or Fever Hydrocodone Bitart/Acetaminophen 1 tab 03/02/25 14:08 03/02/25 15:44 Hydrocodone/Acetaminophen (*Crx) 5-325 Mg Tablet PO 1 tab Q4H PRN Administration Pain Rated 4-6 Amiodarone HCl 200 mg 03/04/25 09:00 03/04/25 21:09 Amiodarone Hcl 200 Mg Tablet PO 200 mg Q12HR SARITA Administration Bupropion HCl 150 mg 03/03/25 09:00 03/04/25 21:09 Bupropion Hcl Sr (12 Hr) 150 Mg Tab BY MOUTH 150 mg Q12HR SARITA Administration Buspirone HCl 10 mg 03/03/25 09:00 03/04/25 08:53 Buspirone Hcl 10 Mg Tablet PO 10 mg DAILY SARITA Administration Dextrose 12.5 gm 03/02/25 23:20 Dextrose 50% 25 Gm/50 Ml Syringe IV PUSH PRN PRN Hypoglycemia Protocol Docusate Sodium 100 mg 03/02/25 17:00 03/04/25 18:03 Docusate Sodium 100 Mg Capsule PO 100 mg BID SARITA Administration Glucagon 1 mg 03/02/25 23:20 Glucagon For Inj 1 Mg Vial IM PRN PRN Hypoglycemia Protocol Glucose 15 gm 03/02/25 23:20 Glucose Oral Gel 15 Gm Of Glucse In 37.5 Gm Tube PO PRN PRN Hypoglycemia Protocol Ceftriaxone Sodium 1 gm/ 50 mls @ 100 mls/hr 03/02/25 16:00 03/04/25 16:43 Sodium Chloride IVPB 100 mls/hr Q24H SARITA Administration Sodium Chloride 1,000 mls @ 75 mls/hr 03/02/25 15:00 03/04/25 18:02 Normal Saline Iv IV CONT 75 mls/hr .[id number] SARITA Administration Dextrose 1,000 mls @ 100 mls/hr 03/02/25 23:20 Dextrose 5% 1,000 Ml IVPB PRN PRN Hypoglycemia Protocol Insulin Aspart 2 - 5 units 03/03/25 08:00 03/04/25 16:45 Insulin Aspart (*Bkc) 100 Units/Ml SUB-Q Not Given TIDWM SARITA Protocol Melatonin 3 mg 03/02/25 23:16 03/04/25 21:09 Melatonin 3 Mg Tablet PO 3 mg QHS PRN Administration Insomnia Metoprolol Tartrate 12.5 mg 03/05/25 09:00 Metoprolol Tartrate 12.5 Mg Tablet PO Q12HR SARITA Morphine Sulfate 2 mg 03/02/25 14:08 Morphine Sulfate (*Crx) 2 Mg/Ml Inj IV PUSH Q2H PRN Pain Rated 7-10 Olanzapine 15 mg 03/03/25 09:00 03/04/25 08:53 Olanzapine 5 Mg Tablet PO 15 mg DAILY SARITA Administration Ondansetron HCl 4 mg 03/02/25 14:08 Ondansetron Inj 4 Mg/2 Ml Vial IV PUSH Q4H PRN Nausea Pravastatin Sodium 10 mg 03/03/25 09:00 03/04/25 08:54 Pravastatin Sodium 10 Mg Tablet PO 10 mg DAILY SARITA Administration Rivaroxaban 20 mg 03/03/25 18:00 03/04/25 18:03 Rivaroxaban 20 Mg Tablet PO 20 mg QPM SARITA Administration Sertraline HCl 100 mg 03/03/25 09:00 03/04/25 08:54 Sertraline Hcl 50 Mg Tablet PO 100 mg DAILY SARITA Administration Radiology Results: ITS Impressions Humerus X-Ray 03/02/25 09:16 Impression: Comminuted fracture the proximal humerus, predominantly involving the greater tuberosity and surgical neck, as detailed above. Shoulder X-Ray 03/02/25 09:19 Impression: Comminuted fracture of the proximal humerus, as detailed above. Head CT 03/02/25 10:57 IMPRESSION: No evidence for acute intracranial hemorrhage or calvarial fracture. Labs Labs: Laboratory Results - last 24 hr 03/04/25 03/04/25 03/04/25 08:38 11:21 16:12 POC Capillary Glucose 139 H 116 H 151 H 03/04/25 19:58 POC Capillary Glucose 130 H
[2025-03-05] MEDS: buPROPion HCL SR (12 HR) 150 MG TAB BY MOUTH ×2 (08:38→21:33)
[2025-03-05] MEDS: METOPROLOL TARTRATE 12.5 MG TABLET PO (08:39)
[2025-03-05] MEDS: AMIODARONE HCL 200 MG TABLET PO ×2 (08:39→21:33)
[2025-03-05] MEDS: PRAVASTATIN SODIUM 10 MG TABLET PO (08:39)
[2025-03-05] MEDS: SERTRALINE HCL 50 MG TABLET 100 MG PO (08:44)
[2025-03-05] MEDS: SODIUM CHLORIDE 0.9% IV 1,000 ML 75 ML IV CONT (11:59)
--- NOTE | 2025-03-05 13:03 | P.PNIM_ITS ---
Progress Note: A&P Assessment and Plan (1) Bradycardia: Code(s): R00.1 - Bradycardia, unspecified Status: Acute Assessment and Plan: Cardiology consulted recommendations of stopping metoprolol and monitoring ov ernight Cardiology following monitor (2) Right humeral fracture: Code(s): S42.301A - Unspecified fracture of shaft of humerus, right arm, initial encounter for closed fracture Status: Acute Assessment and Plan: After fall Non op management Pain control Continue immobilizer (3) Anemia: Code(s): D64.9 - Anemia, unspecified Status: Acute Assessment and Plan: with iron deficiency iron sat 12 started on IV iron 1000/1000 mg (4) Supratherapeutic INR: Code(s): R79.1 - Abnormal coagulation profile Status: Acute Assessment and Plan: INR 2.6 uncorelated with anticoagulation effect of Xarelto INR in the a.m. (5) UTI (urinary tract infection): Code(s): N39.0 - Urinary tract infection, site not specified Status: Acute Assessment and Plan: Rocephin Sensitivity and culture pending (6) Schizophrenia: Code(s): F20.9 - Schizophrenia, unspecified Status: Acute Assessment and Plan: Continue Zyprexa Continue antipsychotics (7) HTN (hypertension): Code(s): I10 - Essential (primary) hypertension Status: Acute (8) PAF (paroxysmal atrial fibrillation): Code(s): I48.0 - Paroxysmal atrial fibrillation Status: Acute Assessment and Plan: S/p Amiodarone infusion Contineu PO Amio 200mg bid adn Xarelto Metoprolol 12.5mg added today by cards due to Tacjhycardia monitor HR Echocardiogram EF 55-60% cardiology following (9) Diabetes type 2, controlled: Code(s): E11.9 - Type 2 diabetes mellitus without complications Status: Acute Assessment and Plan: Patient does not appear to be on medications A.c. HS Low-dose SSI Plan DVT prophylaxis, on Xarelto Subjective Date/time seen: 03/05/25 13:03 Interval history: COmfortable at bedside Metoprolol 12.5mg add by cardiology for rate control Review of Systems Review of Systems: ROS unobtainable: Yes unobtainable due to medical condition and unobtainable due to mental status Exam Narrative: General: well appearing, appears stated age. HEENT: normocephalic, atraumatic. Mucous membranes moist. EOMI, PERRLA, bilateral sclera anicteric, no conjunctival injection. Neck supple without JVD, lymphadenopathy, or bruit. Respiratory: clear to ascultation bilaterally. No rales/rhonic/wheezes. Cardiovascular: Regular rate and rhythm, normal S1-S2 upon ascultation. No murmurs, rubs, or clicks. PMI is nondisplaced, capillary refill less than 3 second. Abdomen: Soft, round, no pulsatile masses, nondistended and nontender. No rebound, no guarding. No CVA tenderness, no hepatosplenomegaly. Bowel sounds present to all four quadrants. No high pitch or tinkling sounds, resonant to percussion. Extremities: No cyanosis, clubbing, or edema present. Pulses are palpable 2/2. Active ROM to all four extremities. Neuro: Alert and orientated x 0. Patient did not know her own name. PERRLA. Cranial nerves 2-12 intact without focal deficit. Skin: Warm, dry, and intact, without rash, erythema, or lesion. Psych: pleasant, cooperative, normal speech, normal affect, no hallucinations, no dysarthia Objective Data Vital Signs Vital Signs: Vital Signs - 24 hr 03/04/25 14:00 03/04/25 14:00 03/04/25 15:05 Temperature Pulse Rate 111 H 108 H 104 H Respiratory Rate Blood Pressure 151/86 H 131/74 Pulse Oximetry 100 Oxygen Delivery 03/04/25 15:36 03/04/25 16:00 03/04/25 18:00 Temperature 98.0 F Pulse Rate 108 H 114 H 114 H Respiratory Rate 16 Blood Pressure 129/74 Pulse Oximetry 98 Oxygen Delivery 03/04/25 19:53 03/04/25 20:00 03/04/25 20:00 Temperature 99.1 F Pulse Rate 106 H 106 H 100 Respiratory Rate 20 Blood Pressure 141/79 H Pulse Oximetry 100 Oxygen Delivery Room Air 03/04/25 21:09 03/04/25 22:00 03/04/25 23:53 Temperature 98.1 F Pulse Rate 121 H 109 H 97 Respiratory Rate 20 Blood Pressure 151/68 H Pulse Oximetry 99 Oxygen Delivery 03/05/25 00:00 03/05/25 00:00 03/05/25 02:00 Temperature Pulse Rate 107 H 110 H 108 H Respiratory Rate Blood Pressure Pulse Oximetry Oxygen Delivery Room Air 03/05/25 04:00 03/05/25 04:00 03/05/25 04:28 Temperature 98.4 F Pulse Rate 115 H 112 H 98 Respiratory Rate 18 Blood Pressure 151/80 H Pulse Oximetry 98 Oxygen Delivery Room Air 03/05/25 06:00 03/05/25 08:00 03/05/25 08:00 Temperature 97.5 F L Pulse Rate 108 H 107 H Respiratory Rate 20 Blood Pressure 183/78 H Pulse Oximetry 99 99 Oxygen Delivery Room Air 03/05/25 08:39 03/05/25 08:39 Temperature Pulse Rate 117 H 115 H Respiratory Rate Blood Pressure Pulse Oximetry Oxygen Delivery Intake/Output Intake/Output: Intake & Output 03/02/25 03/03/25 03/04/25 03/05/25 23:59 23:59 23:59 23:59 Intake Total 50 1697.9 2711.0 1497 Output Total 493 806 3998 700 Balance -150 1497.9 1211.0 797 Meds/Results Medications: Active Medications Generic Name Dose Route Start Last Admin Trade Name Freq PRN Reason Stop Dose Admin Acetaminophen 650 mg 03/02/25 14:08 03/04/25 21:09 Acetaminophen 325 Mg Tablet PO 650 mg Q4H PRN Administration Mild Pain (1-3) or Fever Hydrocodone Bitart/Acetaminophen 1 tab 03/02/25 14:08 03/02/25 15:44 Hydrocodone/Acetaminophen (*Crx) 5-325 Mg Tablet PO 1 tab Q4H PRN Administration Pain Rated 4-6 Amiodarone HCl 200 mg 03/04/25 09:00 03/05/25 08:39 Amiodarone Hcl 200 Mg Tablet PO 200 mg Q12HR SARITA Administration Bupropion HCl 150 mg 03/03/25 09:00 03/05/25 08:38 Bupropion Hcl Sr (12 Hr) 150 Mg Tab BY MOUTH 150 mg Q12HR SARITA Administration Buspirone HCl 10 mg 03/03/25 09:00 03/05/25 08:39 Buspirone Hcl 10 Mg Tablet PO 10 mg DAILY SARITA Administration Dextrose 12.5 gm 03/02/25 23:20 Dextrose 50% 25 Gm/50 Ml Syringe IV PUSH PRN PRN Hypoglycemia Protocol Docusate Sodium 100 mg 03/02/25 17:00 03/04/25 18:03 Docusate Sodium 100 Mg Capsule PO 100 mg BID SARITA Administration Glucagon 1 mg 03/02/25 23:20 Glucagon For Inj 1 Mg Vial IM PRN PRN Hypoglycemia Protocol Glucose 15 gm 03/02/25 23:20 Glucose Oral Gel 15 Gm Of Glucse In 37.5 Gm Tube PO PRN PRN Hypoglycemia Protocol Ceftriaxone Sodium 1 gm/ 50 mls @ 100 mls/hr 03/02/25 16:00 03/04/25 16:43 Sodium Chloride IVPB 100 mls/hr Q24H SARITA Administration Sodium Chloride 1,000 mls @ 75 mls/hr 03/02/25 15:00 03/05/25 12:00 Normal Saline Iv IV CONT Not Given .[id number] SARITA Dextrose 1,000 mls @ 100 mls/hr 03/02/25 23:20 Dextrose 5% 1,000 Ml IVPB PRN PRN Hypoglycemia Protocol Insulin Aspart 2 - 5 units 03/03/25 08:00 03/05/25 12:00 Insulin Aspart (*Bkc) 100 Units/Ml SUB-Q Not Given TIDWM [facility] Protocol Melatonin 3 mg 03/02/25 23:16 03/04/25 21:09 Melatonin 3 Mg Tablet PO 3 mg QHS PRN Administration Insomnia Metoprolol Tartrate 12.5 mg 03/05/25 09:00 03/05/25 08:39 Metoprolol Tartrate 12.5 Mg Tablet PO 12.5 mg Q12HR SARITA Administration Morphine Sulfate 2 mg 03/02/25 14:08 Morphine Sulfate (*Crx) 2 Mg/Ml Inj IV PUSH Q2H PRN Pain Rated 7-10 Olanzapine 15 mg 03/03/25 09:00 03/05/25 08:38 Olanzapine 5 Mg Tablet PO 15 mg DAILY SARITA Administration Ondansetron HCl 4 mg 03/02/25 14:08 Ondansetron Inj 4 Mg/2 Ml Vial IV PUSH Q4H PRN Nausea Pravastatin Sodium 10 mg 03/03/25 09:00 03/05/25 08:39 Pravastatin Sodium 10 Mg Tablet PO 10 mg DAILY SARITA Administration Rivaroxaban 20 mg 03/03/25 18:00 03/04/25 18:03 Rivaroxaban 20 Mg Tablet PO 20 mg QPM SARITA Administration Sertraline HCl 100 mg 03/03/25 09:00 03/05/25 08:44 Sertraline Hcl 50 Mg Tablet PO 100 mg DAILY SARITA Administration Radiology Results: ITS Impressions Humerus X-Ray 03/02/25 09:16 Impression: Comminuted fracture the proximal humerus, predominantly involving the greater tuberosity and surgical neck, as detailed above. Shoulder X-Ray 03/02/25 09:19 Impression: Comminuted fracture of the proximal humerus, as detailed above. Head CT 03/02/25 10:57 IMPRESSION: No evidence for acute intracranial hemorrhage or calvarial fracture. Labs Labs: Laboratory Results - last 24 hr 03/04/25 03/04/25 03/05/25 16:12 19:58 08:41 POC Capillary Glucose 151 H 130 H 127 H 03/05/25 11:46 POC Capillary Glucose 167 H
[2025-03-05] MEDS: DOCUSATE SODIUM 100 MG CAPSULE PO (18:25)
[2025-03-05] MEDS: cefTRIAXone 1 GM in SODIUM CHLORIDE 0.9% IV 50 ML 100 ML IVPB (18:25)
[2025-03-05] MEDS: RIVAROXABAN 20 MG TABLET PO (18:27)
[2025-03-05] MEDS: MELATONIN 3 MG TABLET PO (21:33)
[2025-03-05] MEDS: ACETAMINOPHEN 325 MG TABLET 650 MG PO (21:34)
[2025-03-05] MEDS: METOPROLOL TARTRATE 25 MG TABLET PO (21:34)
[2025-03-06] VITALS (22 sets, daily range): BP systolic 137–164; BP diastolic 59–88; PULSE 77–125; RESP 12–20; TEMP 36.4–36.8; O2SAT 95–100
[2025-03-06 04:58] LABS: Hematocrit 26.3 % (37.0-47.0); Hemoglobin 8.0 g/dL (12.0-15.0); Immature Granulocyte Percent A 1.2 % (0-0.5); Lymphocytes Absolute Auto 0.81 K/mm3 (0.9-3.2); Mean Corpuscular HGB Conc 30.4 g/dl (32-36); Mean Corpuscular Hemoglobin 30.7 pg (26-34); Mean Corpuscular Volume 100.8 fl (80-100); Nucleated Red Blood Cells Absolute Auto 0.000 K/mm3 (0.0-0.012); Nucleated Red Blood Cells Perc 0.0 % (0.0-0.2); Platelet Count Result 175 k/mm3 (150-375); Red Blood Count 2.61 M/mm3 (4.2-5.4); White Blood Count 5.7 K/mm3 (4.5-10.0)
[2025-03-06 05:20] LABS: Alanine Aminotransferase 17 U/L (6-35); Albumin Level 3.1 g/dL (3.5-5.1); Alkaline Phosphatase 64 U/L (38-126); Anion Gap 7 mmol/L (4-12); Aspartate Amino Transferase 39 U/L (14-36); Bilirubin,Total 1.1 mg/dL (0.2-1.3); Blood Urea Nitrogen 3 mg/dL (7-17); Calcium 8.1 mg/dL (8.4-10.2); Carbon Dioxide 25 mmol/L (22-30); Chloride 108 mmol/L (98-107); Estimated CRCL calculation 83 ml/min; Estimated Glomerular Filt Rate > 60; Glucose 113 mg/dL (65-110); Magnesium 1.9 mg/dL (1.6-2.3); Potassium 3.4 mmol/L (3.4-5.0); Sodium 140 mmol/L (137-145); Total Protein 6.5 g/dL (6.3-8.2)
--- NOTE | 2025-03-06 08:26 | PM.PNCARD ---
Progress Note: A&P Assessment and Plan (1) PAF (paroxysmal atrial fibrillation): Code(s): I48.0 - Paroxysmal atrial fibrillation Status: Acute Assessment and Plan: In rapid atrial fib. [id number] 4. On Xarelto. Started 03/03/25 Amiodarone drip then changed to PO to cardiovert to maintain sinus rhythm. She could have tachy-heather syndrome. On Amiodarone 200 mg BID. If HR is controlled on Amiodarone with added Metoprolol or cardioverts to sinus rhythm she may stay on this regimen. Increase Metoprolol Tartate 25 mg BID to improve HR control while in atrial fibrillation but not too slow if she cardioverts to sinus rhythm. Upon discharge have her f/u with me in 1-2 weeks. (2) Bradycardia: Code(s): R00.1 - Bradycardia, unspecified Status: Acute Assessment and Plan: Stable. Due to Metoprolol 75 mg BID when in sinus rhythm. Increase dose Metoprolol 25 mg BID for rate control. (3) Tobacco abuse: Code(s): Z72.0 - Tobacco use Status: Acute Assessment and Plan: Counseled regarding smoking cessation. (4) HTN (hypertension): Code(s): I10 - Essential (primary) hypertension Status: Acute Assessment and Plan: Stable. (5) Dyslipidemia: Code(s): E78.5 - Hyperlipidemia, unspecified Status: Acute Assessment and Plan: On Pravastatin. Subjective Date/time seen: 03/06/25 08:26 Interval history: Denies chest pain or sob or dizziness. Exam Const: General: cooperative, healthy appearing, comfortable and other (Sleepy) Orientation/consciousness: oriented to person, oriented to place and oriented to time Resp: Auscultation: clear to auscultation bilaterally, no crackles, no rales, no rhonchi and no wheezes Cardio: Rate: tachycardic Rhythm: abnormal rhythm Heart sounds: no murmurs Peripheral pulses: dorsalis pedis present Neuro: General: oriented to person, oriented to place and oriented to time Extrem: Right lower extremity: no edema Left lower extremity: no edema Objective Data Vital Signs Vital Signs: Vital Signs - 24 hr 03/05/25 08:39 03/05/25 08:39 03/05/25 10:00 Temperature Pulse Rate 117 H 115 H 110 H Respiratory Rate Blood Pressure Pulse Oximetry Oxygen Delivery 03/05/25 12:00 03/05/25 12:00 03/05/25 14:00 Temperature 97.8 F Pulse Rate 87 94 104 H Respiratory Rate 18 Blood Pressure 187/79 H Pulse Oximetry 100 Oxygen Delivery 03/05/25 16:00 03/05/25 16:00 03/05/25 18:00 Temperature 99 F Pulse Rate 124 H 106 H 110 H Respiratory Rate 20 Blood Pressure 158/83 H Pulse Oximetry 93 Oxygen Delivery 03/05/25 20:00 03/05/25 20:00 03/05/25 20:00 Temperature 98.3 F Pulse Rate 99 111 H 101 H Respiratory Rate 18 Blood Pressure 150/72 H Pulse Oximetry 100 97 Oxygen Delivery Room Air 03/05/25 21:33 03/05/25 21:34 03/05/25 22:00 Temperature Pulse Rate 98 98 95 Respiratory Rate Blood Pressure Pulse Oximetry Oxygen Delivery 03/05/25 23:49 03/06/25 00:00 03/06/25 00:00 Temperature 97.6 F Pulse Rate 104 H 105 H 85 Respiratory Rate 15 Blood Pressure 141/76 H Pulse Oximetry 97 98 Oxygen Delivery Room Air 03/06/25 02:00 03/06/25 03:40 03/06/25 04:00 Temperature 97.6 F Pulse Rate 90 77 92 Respiratory Rate 20 Blood Pressure 139/85 Pulse Oximetry 95 98 Oxygen Delivery Room Air 03/06/25 04:00 03/06/25 06:00 03/06/25 08:00 Temperature 98.3 F Pulse Rate 89 104 H 106 H Respiratory Rate 12 Blood Pressure 154/88 H Pulse Oximetry 100 Oxygen Delivery Intake/Output Intake/Output: Intake & Output 03/03/25 03/04/25 03/05/25 03/06/25 23:59 23:59 23:59 23:59 Intake Total 1697.9 2761.0 3467 240 Output Total 200 1500 1200 900 Balance 1497.9 1261.0 2267 -356 Meds/Results Medications: Active Medications Generic Name Dose Route Start Last Admin Trade Name Freq PRN Reason Stop Dose Admin Acetaminophen 650 mg 03/02/25 14:08 03/05/25 21:34 Acetaminophen 325 Mg Tablet PO 650 mg Q4H PRN Administration Mild Pain (1-3) or Fever Hydrocodone Bitart/Acetaminophen 1 tab 03/02/25 14:08 03/02/25 15:44 Hydrocodone/Acetaminophen (*Crx) 5-325 Mg Tablet PO 1 tab Q4H PRN Administration Pain Rated 4-6 Amiodarone HCl 200 mg 03/04/25 09:00 03/05/25 21:33 Amiodarone Hcl 200 Mg Tablet PO 200 mg Q12HR SARITA Administration Bupropion HCl 150 mg 03/03/25 09:00 03/05/25 21:33 Bupropion Hcl Sr (12 Hr) 150 Mg Tab BY MOUTH 150 mg Q12HR SARITA Administration Buspirone HCl 10 mg 03/03/25 09:00 03/05/25 08:39 Buspirone Hcl 10 Mg Tablet PO 10 mg DAILY SARITA Administration Dextrose 12.5 gm 03/02/25 23:20 Dextrose 50% 25 Gm/50 Ml Syringe IV PUSH PRN PRN Hypoglycemia Protocol Docusate Sodium 100 mg 03/02/25 17:00 03/05/25 18:25 Docusate Sodium 100 Mg Capsule PO 100 mg BID SARITA Administration Glucagon 1 mg 03/02/25 23:20 Glucagon For Inj 1 Mg Vial IM PRN PRN Hypoglycemia Protocol Glucose 15 gm 03/02/25 23:20 Glucose Oral Gel 15 Gm Of Glucse In 37.5 Gm Tube PO PRN PRN Hypoglycemia Protocol Ceftriaxone Sodium 1 gm/ 50 mls @ 100 mls/hr 03/02/25 16:00 03/05/25 19:25 Sodium Chloride IVPB Infused Q24H SARITA Infusion Dextrose 1,000 mls @ 100 mls/hr 03/02/25 23:20 Dextrose 5% 1,000 Ml IVPB PRN PRN Hypoglycemia Protocol Insulin Aspart 2 - 5 units 03/03/25 08:00 03/05/25 18:24 Insulin Aspart (*Bkc) 100 Units/Ml SUB-Q Not Given TIDWM [facility] Protocol Melatonin 3 mg 03/02/25 23:16 03/05/25 21:33 Melatonin 3 Mg Tablet PO 3 mg QHS PRN Administration Insomnia Metoprolol Tartrate 25 mg 03/05/25 21:00 03/05/25 21:34 Metoprolol Tartrate 25 Mg Tablet PO 25 mg Q12HR SARITA Administration Morphine Sulfate 2 mg 03/02/25 14:08 Morphine Sulfate (*Crx) 2 Mg/Ml Inj IV PUSH Q2H PRN Pain Rated 7-10 Olanzapine 15 mg 03/03/25 09:00 03/05/25 08:38 Olanzapine 5 Mg Tablet PO 15 mg DAILY SARITA Administration Ondansetron HCl 4 mg 03/02/25 14:08 Ondansetron Inj 4 Mg/2 Ml Vial IV PUSH Q4H PRN Nausea Pravastatin Sodium 10 mg 03/03/25 09:00 03/05/25 08:39 Pravastatin Sodium 10 Mg Tablet PO 10 mg DAILY SARITA Administration Rivaroxaban 20 mg 03/03/25 18:00 03/05/25 18:27 Rivaroxaban 20 Mg Tablet PO 20 mg QPM SARITA Administration Sertraline HCl 100 mg 03/03/25 09:00 03/05/25 08:44 Sertraline Hcl 50 Mg Tablet PO 100 mg DAILY SARITA Administration Radiology Results: ITS Impressions Humerus X-Ray 03/02/25 09:16 Impression: Comminuted fracture the proximal humerus, predominantly involving the greater tuberosity and surgical neck, as detailed above. Shoulder X-Ray 03/02/25 09:19 Impression: Comminuted fracture of the proximal humerus, as detailed above. Head CT 03/02/25 10:57 IMPRESSION: No evidence for acute intracranial hemorrhage or calvarial fracture. Labs Labs: Laboratory Results - last 24 hr 03/05/25 03/05/25 03/05/25 08:41 11:46 16:52 WBC RBC Hgb Hct MCV MCH MCHC RDW Plt Count MPV Immature Gran % (Auto) Neut % (Auto) Lymph % (Auto) [place] % (Auto) Eos % (Auto) Baso % (Auto) Lymph # (Auto) [place] # (Auto) Eos # (Auto) Baso # (Auto) Abs Immat Gran (auto) Absolute Neuts (auto) Absolute Nucleated RBC Nucleated RBC % Sodium Potassium Chloride Carbon Dioxide Anion Gap BUN Creatinine Estim Creat Clear Calc Estimated GFR Glucose POC Capillary Glucose 127 H 167 H 138 H Calcium Magnesium Total Bilirubin AST ALT Alkaline Phosphatase Total Protein Albumin 03/05/25 03/06/25 03/06/25 20:12 04:48 07:18 WBC 5.7 RBC 2.61 L Hgb 8.0 L Hct 26.3 L MCV 100.8 H MCH 30.7 MCHC 30.4 L RDW 14.6 H Plt Count 175 MPV 10.7 H Immature Gran % (Auto) 1.2 H Neut % (Auto) 71.0 Lymph % (Auto) 14.3 L [place] % (Auto) 9.2 H Eos % (Auto) 4.1 Baso % (Auto) 0.2 Lymph # (Auto) 0.81 L [place] # (Auto) 0.5 Eos # (Auto) 0.2 Baso # (Auto) 0.0 Abs Immat Gran (auto) 0.07 H Absolute Neuts (auto) 4.0 Absolute Nucleated RBC 0.000 Nucleated RBC % 0.0 Sodium 140 Potassium 3.4 Chloride 108 H Carbon Dioxide 25 Anion Gap 7 BUN 3 L Creatinine 0.51 L Estim Creat Clear Calc 83 Estimated GFR > 60 Glucose 113 H POC Capillary Glucose 135 H 109 H Calcium 8.1 L Magnesium 1.9 Total Bilirubin 1.1 AST 39 H ALT 17 Alkaline Phosphatase 64 Total Protein 6.5 Albumin 3.1 L
[2025-03-06] MEDS: PRAVASTATIN SODIUM 10 MG TABLET PO (09:38)
[2025-03-06] MEDS: METOPROLOL TARTRATE 25 MG TABLET PO ×2 (09:38→20:29)
[2025-03-06] MEDS: buPROPion HCL SR (12 HR) 150 MG TAB BY MOUTH ×2 (09:38→20:28)
[2025-03-06] MEDS: AMIODARONE HCL 200 MG TABLET PO ×2 (09:39→20:29)
[2025-03-06] MEDS: DOCUSATE SODIUM 100 MG CAPSULE PO (09:39)
[2025-03-06] MEDS: SERTRALINE HCL 50 MG TABLET 100 MG PO (09:40)
--- NOTE | 2025-03-06 14:53 | P.PNIM_ITS ---
Progress Note: A&P Assessment and Plan (1) Bradycardia: Code(s): R00.1 - Bradycardia, unspecified Status: Acute Assessment and Plan: Cardiology consulted recommendations of stopping metoprolol and monitoring ov ernight Cardiology following monitor (2) Right humeral fracture: Code(s): S42.301A - Unspecified fracture of shaft of humerus, right arm, initial encounter for closed fracture Status: Acute Assessment and Plan: After fall Non op management Pain control Continue immobilizer (3) Anemia: Code(s): D64.9 - Anemia, unspecified Status: Acute Assessment and Plan: with iron deficiency iron sat 12 started on IV iron 1000/1000 mg (4) Supratherapeutic INR: Code(s): R79.1 - Abnormal coagulation profile Status: Acute Assessment and Plan: INR 2.6 uncorelated with anticoagulation effect of Xarelto INR in the a.m. (5) UTI (urinary tract infection): Code(s): N39.0 - Urinary tract infection, site not specified Status: Acute Assessment and Plan: Rocephin Sensitivity and culture pending (6) Schizophrenia: Code(s): F20.9 - Schizophrenia, unspecified Status: Acute Assessment and Plan: Continue Zyprexa Continue antipsychotics (7) HTN (hypertension): Code(s): I10 - Essential (primary) hypertension Status: Acute (8) PAF (paroxysmal atrial fibrillation): Code(s): I48.0 - Paroxysmal atrial fibrillation Status: Acute Assessment and Plan: S/p Amiodarone infusion Continue PO Amio 200mg bid and Xarelto Metoprolol 25mg added today by cards due to Tachycardia monitor HR Echocardiogram EF 55-60% cardiology following (9) Diabetes type 2, controlled: Code(s): E11.9 - Type 2 diabetes mellitus without complications Status: Acute Assessment and Plan: Patient does not appear to be on medications A.c. HS Low-dose SSI Plan DVT prophylaxis, on Xarelto Awaiting HR control for discharge Subjective Date/time seen: 03/06/25 14:53 Interval history: Comfortable at bedside awaiting better heart rate control for discharge cardiology increased Metoprolol to 25mg today Review of Systems Review of Systems: ROS unobtainable: Yes unobtainable due to medical condition and unobtainable due to mental status Exam Narrative: General: well appearing, appears stated age. HEENT: normocephalic, atraumatic. Mucous membranes moist. EOMI, PERRLA, bilateral sclera anicteric, no conjunctival injection. Neck supple without JVD, lymphadenopathy, or bruit. Respiratory: clear to ascultation bilaterally. No rales/rhonic/wheezes. Cardiovascular: Regular rate and rhythm, normal S1-S2 upon ascultation. No murmurs, rubs, or clicks. PMI is nondisplaced, capillary refill less than 3 second. Abdomen: Soft, round, no pulsatile masses, nondistended and nontender. No rebound, no guarding. No CVA tenderness, no hepatosplenomegaly. Bowel sounds present to all four quadrants. No high pitch or tinkling sounds, resonant to percussion. Extremities: No cyanosis, clubbing, or edema present. Pulses are palpable 2/2. Active ROM to all four extremities. Neuro: Alert and orientated x 0. Patient did not know her own name. PERRLA. Cranial nerves 2-12 intact without focal deficit. Skin: Warm, dry, and intact, without rash, erythema, or lesion. Psych: pleasant, cooperative, normal speech, normal affect, no hallucinations, no dysarthia Objective Data Vital Signs Vital Signs: Vital Signs - 24 hr 03/05/25 16:00 03/05/25 16:00 03/05/25 18:00 Temperature 99 F Pulse Rate 124 H 106 H 110 H Respiratory Rate 20 Blood Pressure 158/83 H Pulse Oximetry 93 Oxygen Delivery 03/05/25 20:00 03/05/25 20:00 03/05/25 20:00 Temperature 98.3 F Pulse Rate 99 111 H 101 H Respiratory Rate 18 Blood Pressure 150/72 H Pulse Oximetry 100 97 Oxygen Delivery Room Air 03/05/25 21:33 03/05/25 21:34 03/05/25 22:00 Temperature Pulse Rate 98 98 95 Respiratory Rate Blood Pressure Pulse Oximetry Oxygen Delivery 03/05/25 23:49 03/06/25 00:00 03/06/25 00:00 Temperature 97.6 F Pulse Rate 104 H 105 H 85 Respiratory Rate 15 Blood Pressure 141/76 H Pulse Oximetry 97 98 Oxygen Delivery Room Air 03/06/25 02:00 03/06/25 03:40 03/06/25 04:00 Temperature 97.6 F Pulse Rate 90 77 92 Respiratory Rate 20 Blood Pressure 139/85 Pulse Oximetry 95 98 Oxygen Delivery Room Air 03/06/25 04:00 03/06/25 06:00 03/06/25 08:00 Temperature 98.3 F Pulse Rate 89 104 H 106 H Respiratory Rate 12 Blood Pressure 154/88 H Pulse Oximetry 100 Oxygen Delivery 03/06/25 09:38 03/06/25 09:39 03/06/25 11:40 Temperature 98.2 F Pulse Rate 105 H 105 H 101 H Respiratory Rate 18 Blood Pressure 164/80 H Pulse Oximetry 99 Oxygen Delivery Intake/Output Intake/Output: Intake & Output 03/03/25 03/04/25 03/05/25 03/06/25 23:59 23:59 23:59 23:59 Intake Total 1697.9 2761.0 3467 360 Output Total 200 1500 1200 900 Balance 1497.9 1261.0 2267 -540 Meds/Results Medications: Active Medications Generic Name Dose Route Start Last Admin Trade Name Freq PRN Reason Stop Dose Admin Acetaminophen 650 mg 03/02/25 14:08 03/05/25 21:34 Acetaminophen 325 Mg Tablet PO 650 mg Q4H PRN Administration Mild Pain (1-3) or Fever Hydrocodone Bitart/Acetaminophen 1 tab 03/02/25 14:08 03/02/25 15:44 Hydrocodone/Acetaminophen (*Crx) 5-325 Mg Tablet PO 1 tab Q4H PRN Administration Pain Rated 4-6 Amiodarone HCl 200 mg 03/04/25 09:00 03/06/25 09:39 Amiodarone Hcl 200 Mg Tablet PO 200 mg Q12HR SARITA Administration Bupropion HCl 150 mg 03/03/25 09:00 03/06/25 09:38 Bupropion Hcl Sr (12 Hr) 150 Mg Tab BY MOUTH 150 mg Q12HR SARITA Administration Buspirone HCl 10 mg 03/03/25 09:00 03/06/25 09:38 Buspirone Hcl 10 Mg Tablet PO 10 mg DAILY SARITA Administration Dextrose 12.5 gm 03/02/25 23:20 Dextrose 50% 25 Gm/50 Ml Syringe IV PUSH PRN PRN Hypoglycemia Protocol Docusate Sodium 100 mg 03/02/25 17:00 03/06/25 09:39 Docusate Sodium 100 Mg Capsule PO 100 mg BID SARITA Administration Glucagon 1 mg 03/02/25 23:20 Glucagon For Inj 1 Mg Vial IM PRN PRN Hypoglycemia Protocol Glucose 15 gm 03/02/25 23:20 Glucose Oral Gel 15 Gm Of Glucse In 37.5 Gm Tube PO PRN PRN Hypoglycemia Protocol Ceftriaxone Sodium 1 gm/ 50 mls @ 100 mls/hr 03/02/25 16:00 03/05/25 19:25 Sodium Chloride IVPB Infused Q24H SARITA Infusion Dextrose 1,000 mls @ 100 mls/hr 03/02/25 23:20 Dextrose 5% 1,000 Ml IVPB PRN PRN Hypoglycemia Protocol Insulin Aspart 2 - 5 units 03/03/25 08:00 03/06/25 09:37 Insulin Aspart (*Bkc) 100 Units/Ml SUB-Q Not Given TIDWM [facility] Protocol Melatonin 3 mg 03/02/25 23:16 03/05/25 21:33 Melatonin 3 Mg Tablet PO 3 mg QHS PRN Administration Insomnia Metoprolol Tartrate 25 mg 03/05/25 21:00 03/06/25 09:38 Metoprolol Tartrate 25 Mg Tablet PO 25 mg Q12HR SARITA Administration Morphine Sulfate 2 mg 03/02/25 14:08 Morphine Sulfate (*Crx) 2 Mg/Ml Inj IV PUSH Q2H PRN Pain Rated 7-10 Olanzapine 15 mg 03/03/25 09:00 03/06/25 09:38 Olanzapine 5 Mg Tablet PO 15 mg DAILY SARITA Administration Ondansetron HCl 4 mg 03/02/25 14:08 Ondansetron Inj 4 Mg/2 Ml Vial IV PUSH Q4H PRN Nausea Pravastatin Sodium 10 mg 03/03/25 09:00 03/06/25 09:38 Pravastatin Sodium 10 Mg Tablet PO 10 mg DAILY SARITA Administration Rivaroxaban 20 mg 03/03/25 18:00 03/05/25 18:27 Rivaroxaban 20 Mg Tablet PO 20 mg QPM SARITA Administration Sertraline HCl 100 mg 03/03/25 09:00 03/06/25 09:40 Sertraline Hcl 50 Mg Tablet PO 100 mg DAILY SARITA Administration Radiology Results: ITS Impressions Humerus X-Ray 03/02/25 09:16 Impression: Comminuted fracture the proximal humerus, predominantly involving the greater tuberosity and surgical neck, as detailed above. Shoulder X-Ray 03/02/25 09:19 Impression: Comminuted fracture of the proximal humerus, as detailed above. Head CT 03/02/25 10:57 IMPRESSION: No evidence for acute intracranial hemorrhage or calvarial fracture. Labs Labs: Laboratory Results - last 24 hr 03/05/25 03/05/25 03/06/25 16:52 20:12 04:48 WBC 5.7 RBC 2.61 L Hgb 8.0 L Hct 26.3 L MCV 100.8 H MCH 30.7 MCHC 30.4 L RDW 14.6 H Plt Count 175 MPV 10.7 H Immature Gran % (Auto) 1.2 H Neut % (Auto) 71.0 Lymph % (Auto) 14.3 L [place] % (Auto) 9.2 H Eos % (Auto) 4.1 Baso % (Auto) 0.2 Lymph # (Auto) 0.81 L [place] # (Auto) 0.5 Eos # (Auto) 0.2 Baso # (Auto) 0.0 Abs Immat Gran (auto) 0.07 H Absolute Neuts (auto) 4.0 Absolute Nucleated RBC 0.000 Nucleated RBC % 0.0 Sodium 140 Potassium 3.4 Chloride 108 H Carbon Dioxide 25 Anion Gap 7 BUN 3 L Creatinine 0.51 L Estim Creat Clear Calc 83 Estimated GFR > 60 Glucose 113 H POC Capillary Glucose 138 H 135 H Calcium 8.1 L Magnesium 1.9 Total Bilirubin 1.1 AST 39 H ALT 17 Alkaline Phosphatase 64 Total Protein 6.5 Albumin 3.1 L 03/06/25 03/06/25 07:18 11:31 WBC RBC Hgb Hct MCV MCH MCHC RDW Plt Count MPV Immature Gran % (Auto) Neut % (Auto) Lymph % (Auto) [place] % (Auto) Eos % (Auto) Baso % (Auto) Lymph # (Auto) [place] # (Auto) Eos # (Auto) Baso # (Auto) Abs Immat Gran (auto) Absolute Neuts (auto) Absolute Nucleated RBC Nucleated RBC % Sodium Potassium Chloride Carbon Dioxide Anion Gap BUN Creatinine Estim Creat Clear Calc Estimated GFR Glucose POC Capillary Glucose 109 H 218 H Calcium Magnesium Total Bilirubin AST ALT Alkaline Phosphatase Total Protein Albumin
[2025-03-06] MEDS: RIVAROXABAN 20 MG TABLET PO (17:25)
[2025-03-06] MEDS: cefTRIAXone 1 GM in SODIUM CHLORIDE 0.9% IV 50 ML 100 ML IVPB (17:25)
[2025-03-06] MEDS: ACETAMINOPHEN 325 MG TABLET 650 MG PO (17:26)
[2025-03-06] MEDS: MELATONIN 3 MG TABLET PO (20:29)
[2025-03-07] VITALS (8 sets, daily range): BP systolic 145–151; BP diastolic 65–100; PULSE 96–110; RESP 16–20; TEMP 36.6–37.2; O2SAT 98–100
--- NOTE | 2025-03-07 07:38 | PM.PNCARD ---
Progress Note: A&P Assessment and Plan (1) PAF (paroxysmal atrial fibrillation): Code(s): I48.0 - Paroxysmal atrial fibrillation Status: Acute Assessment and Plan: In rapid atrial fib. [id number] 4. On Xarelto. On Amiodarone 200 mg PO BID and Metoprolol Tartate 25 mg BID. Started 03/03/25 Amiodarone drip then changed to PO to cardiovert to maintain sinus rhythm. She could have tachy-heather syndrome. On Metoprolol Tartate 25 mg BID to improve HR control while in atrial fibrillation but not too slow if she cardioverts to sinus rhythm. May d/c home from cardiology standpoint. Have her f/u with me in 1-2 weeks. (2) Bradycardia: Code(s): R00.1 - Bradycardia, unspecified Status: Acute Assessment and Plan: Stable. Due to Metoprolol 75 mg BID when in sinus rhythm. Increase dose Metoprolol 25 mg BID for rate control. (3) Tobacco abuse: Code(s): Z72.0 - Tobacco use Status: Acute Assessment and Plan: Counseled regarding smoking cessation. (4) HTN (hypertension): Code(s): I10 - Essential (primary) hypertension Status: Acute Assessment and Plan: Stable. (5) Dyslipidemia: Code(s): E78.5 - Hyperlipidemia, unspecified Status: Acute Assessment and Plan: On Pravastatin. Subjective Date/time seen: 03/07/25 07:38 Interval history: Denies chest pain or sob or dizziness. Exam Const: General: cooperative, healthy appearing, comfortable and other (Sleepy) Orientation/consciousness: oriented to person, oriented to place and oriented to time Resp: Auscultation: clear to auscultation bilaterally, no crackles, no rales, no rhonchi and no wheezes Cardio: Rate: regular rate Rhythm: abnormal rhythm Heart sounds: no murmurs Peripheral pulses: dorsalis pedis present Neuro: General: oriented to person, oriented to place and oriented to time Extrem: Right lower extremity: no edema Left lower extremity: no edema Objective Data Vital Signs Vital Signs: Vital Signs - 24 hr 03/06/25 08:00 03/06/25 08:00 03/06/25 09:38 Temperature 98.3 F Pulse Rate 106 H 105 H 105 H Respiratory Rate 12 Blood Pressure 154/88 H Pulse Oximetry 100 Oxygen Delivery Fraction of Inspired Oxygen 03/06/25 09:39 03/06/25 10:00 03/06/25 11:40 Temperature 98.2 F Pulse Rate 105 H 101 H 101 H Respiratory Rate 18 Blood Pressure 164/80 H Pulse Oximetry 99 Oxygen Delivery Fraction of Inspired Oxygen 03/06/25 12:00 03/06/25 14:00 03/06/25 15:28 Temperature 97.5 F L Pulse Rate 97 96 93 Respiratory Rate 16 Blood Pressure 147/68 H Pulse Oximetry 98 Oxygen Delivery Fraction of Inspired Oxygen 03/06/25 16:00 03/06/25 18:00 03/06/25 19:36 Temperature 98.2 F Pulse Rate 125 H 104 H 89 Respiratory Rate 16 Blood Pressure 137/64 Pulse Oximetry 98 Oxygen Delivery Fraction of Inspired Oxygen 03/06/25 20:00 03/06/25 20:00 03/06/25 20:29 Temperature Pulse Rate 98 98 98 Respiratory Rate 16 Blood Pressure Pulse Oximetry 98 Oxygen Delivery Room Air Fraction of Inspired Oxygen 03/06/25 20:29 03/06/25 21:07 03/06/25 21:09 Temperature Pulse Rate 98 92 Respiratory Rate Blood Pressure Pulse Oximetry 98 Oxygen Delivery Room Air Fraction of Inspired Oxygen 03/06/25 23:43 03/06/25 23:58 03/07/25 04:00 Temperature 98.3 F Pulse Rate 89 84 97 Respiratory Rate 18 Blood Pressure 140/59 L Pulse Oximetry 100 Oxygen Delivery Fraction of Inspired Oxygen Intake/Output Intake/Output: Intake & Output 03/04/25 03/05/25 03/06/25 03/07/25 23:59 23:59 23:59 23:59 Intake Total 2761.0 3467 360 550 Output Total 1500 1200 1400 Balance 1261.0 2267 -1040 550 Meds/Results Medications: Active Medications Generic Name Dose Route Start Last Admin Trade Name Freq PRN Reason Stop Dose Admin Acetaminophen 650 mg 03/02/25 14:08 03/06/25 17:26 Acetaminophen 325 Mg Tablet PO 650 mg Q4H PRN Administration Mild Pain (1-3) or Fever Hydrocodone Bitart/Acetaminophen 1 tab 03/02/25 14:08 03/02/25 15:44 Hydrocodone/Acetaminophen (*Crx) 5-325 Mg Tablet PO 1 tab Q4H PRN Administration Pain Rated 4-6 Amiodarone HCl 200 mg 03/04/25 09:00 03/06/25 20:29 Amiodarone Hcl 200 Mg Tablet PO 200 mg Q12HR SARITA Administration Bupropion HCl 150 mg 03/03/25 09:00 03/06/25 20:28 Bupropion Hcl Sr (12 Hr) 150 Mg Tab BY MOUTH 150 mg Q12HR SARITA Administration Buspirone HCl 10 mg 03/03/25 09:00 03/06/25 09:38 Buspirone Hcl 10 Mg Tablet PO 10 mg DAILY SARITA Administration Dextrose 12.5 gm 03/02/25 23:20 Dextrose 50% 25 Gm/50 Ml Syringe IV PUSH PRN PRN Hypoglycemia Protocol Docusate Sodium 100 mg 03/02/25 17:00 03/06/25 15:25 Docusate Sodium 100 Mg Capsule PO Not Given BID SARITA Glucagon 1 mg 03/02/25 23:20 Glucagon For Inj 1 Mg Vial IM PRN PRN Hypoglycemia Protocol Glucose 15 gm 03/02/25 23:20 Glucose Oral Gel 15 Gm Of Glucse In 37.5 Gm Tube PO PRN PRN Hypoglycemia Protocol Ceftriaxone Sodium 1 gm/ 50 mls @ 100 mls/hr 03/02/25 16:00 03/06/25 17:25 Sodium Chloride IVPB 100 mls/hr Q24H SARITA Administration Dextrose 1,000 mls @ 100 mls/hr 03/02/25 23:20 Dextrose 5% 1,000 Ml IVPB PRN PRN Hypoglycemia Protocol Insulin Aspart 2 - 5 units 03/03/25 08:00 03/06/25 17:25 Insulin Aspart (*Bkc) 100 Units/Ml SUB-Q Not Given TIDWM SARITA Protocol Lisinopril 5 mg 03/06/25 15:00 03/06/25 17:25 Lisinopril 5 Mg Tablet PO 5 mg QAM SARITA Administration Melatonin 3 mg 03/02/25 23:16 03/06/25 20:29 Melatonin 3 Mg Tablet PO 3 mg QHS PRN Administration Insomnia Metoprolol Tartrate 25 mg 03/05/25 21:00 03/06/25 20:29 Metoprolol Tartrate 25 Mg Tablet PO 25 mg Q12HR SARITA Administration Morphine Sulfate 2 mg 03/02/25 14:08 Morphine Sulfate (*Crx) 2 Mg/Ml Inj IV PUSH Q2H PRN Pain Rated 7-10 Olanzapine 15 mg 03/03/25 09:00 03/06/25 09:38 Olanzapine 5 Mg Tablet PO 15 mg DAILY SARITA Administration Ondansetron HCl 4 mg 03/02/25 14:08 Ondansetron Inj 4 Mg/2 Ml Vial IV PUSH Q4H PRN Nausea Pravastatin Sodium 10 mg 03/03/25 09:00 03/06/25 09:38 Pravastatin Sodium 10 Mg Tablet PO 10 mg DAILY SARITA Administration Rivaroxaban 20 mg 03/03/25 18:00 03/06/25 17:25 Rivaroxaban 20 Mg Tablet PO 20 mg QPM SARITA Administration Sertraline HCl 100 mg 03/03/25 09:00 03/06/25 09:40 Sertraline Hcl 50 Mg Tablet PO 100 mg DAILY SARITA Administration Radiology Results: ITS Impressions Humerus X-Ray 03/02/25 09:16 Impression: Comminuted fracture the proximal humerus, predominantly involving the greater tuberosity and surgical neck, as detailed above. Shoulder X-Ray 03/02/25 09:19 Impression: Comminuted fracture of the proximal humerus, as detailed above. Head CT 03/02/25 10:57 IMPRESSION: No evidence for acute intracranial hemorrhage or calvarial fracture. Labs Labs: Laboratory Results - last 24 hr 03/06/25 03/06/25 03/06/25 11:31 16:09 20:20 POC Capillary Glucose 218 H 120 H 139 H
[2025-03-07] MEDS: METOPROLOL TARTRATE 25 MG TABLET PO ×2 (09:31→20:14)
[2025-03-07] MEDS: PRAVASTATIN SODIUM 10 MG TABLET PO (09:31)
[2025-03-07] MEDS: DOCUSATE SODIUM 100 MG CAPSULE PO (09:31)
[2025-03-07] MEDS: SERTRALINE HCL 50 MG TABLET 100 MG PO (09:31)
[2025-03-07] MEDS: AMIODARONE HCL 200 MG TABLET PO ×2 (09:31→20:14)
[2025-03-07] MEDS: buPROPion HCL SR (12 HR) 150 MG TAB BY MOUTH ×2 (09:32→20:14)
--- NOTE | 2025-03-07 15:28 | PM.DS ---
DS: Admitting Diagnosis Discharge Date 03/07/25 Admitting Diagnosis FALL DS: Discharge Diagnosis Discharge Diagnosis (1) PAF (paroxysmal atrial fibrillation): Code(s): I48.0 - Paroxysmal atrial fibrillation Status: Acute (2) UTI (urinary tract infection): Code(s): N39.0 - Urinary tract infection, site not specified Status: Acute (3) Right humeral fracture: Code(s): S42.301A - Unspecified fracture of shaft of humerus, right arm, initial encounter for closed fracture Status: Acute DS: Summary Hospital Course Hospital Course: 70-year-old female past medical history of schizophrenia hypertension, diabetes type 2, chronic AFib bipolar presents to the emergency room with right upper extremity pain after fall. HPI is limited due to patient's confusion and being a poor historian. 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 Lab work in the ED shows anemia at 8.5 baseline last year was 13.0 INR 4.4, PTT 60.4 UA is positive for nitrates and trace leukocyte esterase 3+ bacteria. Right humerus x-ray shows proximal fracture. Head CT shows no acute process. Orthopedics was consulted and states that the fracture can have non op management. Heart rate on admission was 99, however after a couple hours patient dropped her rate of 39. Patient was seen by Cardiology for bradycardia and recommends overnight admission for monitoring. Ortho was consulted in the ER and recommended immobllizer, and will follow up in clinic in 1 week. Metoprolol was held for bradycardia and patient went into Afib w/ RVR, started on Amiodarone and Xarelto continued. eventually transitioned to PO Amiodarone 200mg bid, however Metoprolol was titrated in by cardiology to contorl heart rate. [place] Metoprolol 25mg bid, ECHO showed Ef 55%. Cardiology will follow uo in clinic in 1-2 weeks. Also managed for Iron deficiency anemia received 1g IV iron , Hb stabel at 8.0 F/u with PCP in 3-5 days F/u with cardiology and ortho as instructed Time Spent with Patient Time attestation: Total time spent providing and/or coordinating discharge services: DS: Data Data Completed and Pending Labs on day of discharge: Labs from last 24 hours 03/07/25 03/07/25 03/06/25 11:47 08:36 20:20 POC Capillary Glucose 110 H 157 H 139 H 03/06/25 16:09 POC Capillary Glucose 120 H Preliminary micro results at discharge 03/02/25 11:36 Urine Culture - Preliminary Urine Clean Catch Gram negative bacilli isolated Discharge Plan Discharge Attending physician on discharge: Danis Justice Consulting providers: Tim Fishman; Antonio Meredith Discharging Clinician: Danis Justice Anticipated Discharge Date/Time: 03/07/25 15:25 Patient Disposition: NH [facility]/Asst Living Activity: as tolerated Diet: as tolerated and heart healthy Patient Instructions: Antibiotic Form, Metoprolol (By mouth), A-fib (Atrial Fibrillation) (ED), Arm Fracture in Adults (DC), Managing Diabetes During Sick Days (DC), Diabetes and Exercise (ED), Shoulder Immobilizer (DC) Patient Language: Divehi Stand Alone Forms: General Discharge Information Follow-up/Referrals: Tim Fishman DO [Physician] - (F/u with cardiology ) Antonio Meredith MD [Physician] - (F/u with ortho in clinic as scheduled ) UNKNOWN,DOCTOR [Primary Care Provider] - (F/u with PCP in 3-5 days ) Discharge Medications: New amiodarone [Pacerone] 200 mg Tablet 200 mg PO Q12HR 30 Days Qty: 60 1RF metoprolol tartrate 25 mg Tablet 25 mg PO Q12HR 30 Days Qty: 60 1RF lisinopril 5 mg tablet 5 mg PO DAILY 30 Days Qty: 30 0RF Continued sertraline [Zoloft] 100 mg tablet 100 mg PO DAILY sertraline 50 mg tablet 50 mg PO DAILY calcium carbonate [Oyster Shell Calcium] 500 mg calcium (1,250 mg) tablet 500 mg PO BID vitamin B complex [B Complex-Vitamin B12] Tablet 1 tablet PO DAILY cholecalciferol (vitamin D3) 125 mcg (5,000 unit) capsule 125 mcg PO DAILY bupropion HCl 150 mg tablet sustained-release 12 hr See Rx Instructions .ROUTE .COMPLEX Rx Instructions: 150 mg orally at 8am and 12pm ferrous sulfate 325 mg (65 mg iron) tablet 325 mg PO BID olanzapine 15 mg tablet 15 mg PO DAILY pravastatin 10 mg tablet 10 mg PO DAILY acetaminophen [Pain Relief (acetaminophen)] 325 mg tablet 650 mg PO Q6H PRN (Reason: pain (scale score 1-3)) melatonin 3 mg capsule 3 mg PO QHS PRN (Reason: Insomnia) fluticasone propionate 50 mcg/actuation spray,suspension 2 spray intranasal DAILY Rx Instructions: administer into each nostril Xarelto 20 mg tablet 20 mg PO QPM famotidine 20 mg tablet 20 mg PO DAILY hydrocortisone 1 % cream 1 applic topical DAILY Rx Instructions: apply to upper back buspirone 10 mg tablet 10 mg PO DAILY Biofreeze (menthol) 5 % gel 1 ea topical DAILY Rx Instructions: apply to lower back Discontinued metoprolol tartrate 75 mg tablet 75 mg PO BID amiodarone 100 mg tablet 100 mg PO DAILY Date of admission: 03/03/25 14:59 Primary Care Provider: UNKNOWN,DOCTOR Admitting Provider: Danis Justice Attending physician on admission: Danis Justice Condition: Stable
[2025-03-07] MEDS: cefTRIAXone 1 GM in SODIUM CHLORIDE 0.9% IV 50 ML 100 ML IVPB (16:15)
[2025-03-07] MEDS: RIVAROXABAN 20 MG TABLET PO (18:56)
--- NOTE | 2025-03-10 15:05 | PC.NURSE ---
Addendum entered by Haydee Patino RN 03/10/25 15:38: Follow up orthopedic appointment is with Dr Griffith on 03/18 at 1130. Message left with Rosa at [facility] [place] and with patients MARIN Tristan re abdoul. Original Note: I was contacted by MARIN Fraga with respect to notification of patient discharge. She stated that she did not receive notification of discharge on date that patient returned to [facility]. I apologized and answered questions related to discharge instructions and plan for ongoing care. She voiced understanding and agreement. I advised of follow up orthopedic appointment and verified with office that appointment scheduled for patient. MARIN sister informed of same. No further concerns or questions voiced.
--- NOTE | 2025-03-10 15:31 | PC.NURSE ---
Clarification of previous note- follow up orthopedic appointment is with Dr Griffith on March 18 at 1130.
== END 2025-03-07 21:49 | DRG 309 ==
LOC: ANHED 09:01 → ANHIMU 15:16
PROVIDERS: Nurse Practitioner Gerontology; Admitting Provider Internal Medicine; Emergency Provider Emergency Medicine; Visit Provider Internal Medicine
DX: R00.1 Bradycardia, unspecified (principal); N39.0 Urinary tract infection, site not specified; S42.251A Displaced fracture of greater tuberosity of right humerus, initial encounter for closed fracture; S42.211A Unspecified displaced fracture of surgical neck of right humerus, initial encounter for closed fracture; T44.7X5A Adverse effect of beta-adrenoreceptor antagonists, initial encounter; R79.1 Abnormal coagulation profile; F20.9 Schizophrenia, unspecified; F31.9 Bipolar disorder, unspecified; W19.XXXA Unspecified fall, initial encounter; I10 Essential (primary) hypertension; I48.0 Paroxysmal atrial fibrillation; E11.9 Type 2 diabetes mellitus without complications; E78.5 Hyperlipidemia, unspecified; D50.9 Iron deficiency anemia, unspecified; F17.210 Nicotine dependence, cigarettes, uncomplicated; Z79.01 Long term (current) use of anticoagulants
CPT/HCPCS: 36415; 70450; 73030; 73060; 80048; 80053; 81001; 82607; 82746; 82948; 83540; 83550; 83735; 84443; 85025; 85055; 85610; 85730; 87086; 93005; 96365; 96366; 96367; 96374; 96375; 97110; 97162; 97165; 97530; 99285; A9270; C8929; G0378; J0282; J0696; J1610; J1756; J7030; J7050; Q9957